=== PATIENT | male | born 1950 ===

== ENCOUNTER 2021-11-03 16:26 | Inpatient (IN) | payer MEDICARE, OTHER, SELFPAY ==
--- NOTE | ~2021-11-03 | CT_ITS ---
EXAMINATION: CT HEAD WITHOUT CONTRAST CLINICAL INFORMATION: Change in mental status COMPARISON: None TECHNIQUE: Contiguous axial imaging was performed from the skull base to vertex without intravenous administration of contrast. This CT examination was performed using dose optimization techniques as appropriate, variously including the following: *Automated exposure control *Adjustment of mA and/or kV according to patient size (this includes techniques or standardized protocols for targeted exams where dose is matched to indication/reason for exam; i.e. extremities or head) *Use of iterative reconstruction technique DLP: 889 mGy-cm FINDINGS: There is no evidence of acute intracranial hemorrhage or territorial infarction. No abnormal mass effect or midline shift is seen. Riddle to white matter differentiation is well preserved. No extra-axial fluid collections are identified. The ventricles are normal in size. There is no abnormal attenuation within the brain parenchyma. The osseous structures and soft tissues are normal. The mastoid air cells and visualized portions of the paranasal sinuses are well aerated. CT/CT head/brain wo con IMPRESSION: Unremarkable exam.
[2021-11-03 17:01] VITALS: BP 149/77; PULSE 75; RESP 16; TEMP 36.6; O2SAT 97
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
[2021-11-03 18:00] VITALS: BP 137/67; PULSE 76; RESP 137; RESP 16; TEMP 36.5; O2SAT 98
--- NOTE | 2021-11-03 18:18 | PC.ADMIT ---
[place] [facility] [facility] where he was brought due to reports of erratic behavior. The patient reported increased anxiety/panic attacks. He was also exhibiting unusual behavior in the community including plans to order large amounts of food from a restaurant for a republican and spending excessive amounts of money. Patient resides at home with his and other family members. Patient arrived on unit at 1636 via stretcher. He was observed to be neatly dressed in street clothes and neatly groomed. TW met the patient outside the unit with CV. Patient initally covered his ears with his hands when TW was attempting to assess mental status and refused to answer questions. When it was explained to him that he couldn't be admitted without answering he replied wth name, year and location. He then signed the CV. Upon admission to the unit vital signs were taken. T 97.9, BP 149/77, P 75 and O2 97%. Patient then declined to participate in the admission process stating, Answering questions will raise my anxiety . Patient declined dinner. He was observed conversing with other patients and interacting appropriately. When TW attempted to have him sign ADA's patient again declined to allow an explanation of documents and walked away. Patient apppears calm exhibiting no behavioral issues. Insight into situation is lacking and judgement appears impaired.
[2021-11-03] MEDS: polyethylene glycoL 3350 17 GM POWD.PACK PO (21:51)
--- NOTE | 2021-11-03 23:48 | PC.NURSE ---
pt has been visible in the milieu. however, initially when entering his room he is convinced that bed bugs have infested his bed. in fact there are a few pieces of straw on the sheet which has spurred the pts fear of bed bugs. there are c/o of constipation and a request for miralax. pt is guarded in his responses. he signed his release form for his dana to receive medical information. however, pt. declines to sign any further release forms at this time. dana given update and then spoke to . 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 another time pt stated that he worked at [employer] [[email or web address]] for 40 years. with the assistance of senior cyber security analyst, pt was asked to return to his room for the night. pt was cooperative and returned to his room for sleep. requests receive shower in the am.
[2021-11-04] MEDS: Ondansetron ODT 4 MG TAB.RAPDIS TRANSLINGU ×2 (08:04→20:24)
[2021-11-04 08:08] VITALS: BP 154/73; PULSE 73; RESP 19; TEMP 36.9; O2SAT 99
[2021-11-04 08:32] LABS: Estimated Average Glucose 108 mg/dL; Hemoglobin A1c % 5.4 %
[2021-11-04 08:37] LABS: Cholesterol 109 mg/dL; HDL Cholesterol 44 mg/dL; LDL Cholesterol Calculated 54 mg/dl; Triglycerides 57 mg/dL
[2021-11-04 09:01] LABS: Free T4 (Free Thyroxine) 1.41 ng/dL (0.71-1.85); Thyroid Stimulating Hormone 1.59 uIU/mL (0.32-4.0)
[2021-11-04 09:13] LABS: Folate 10.7 ng/mL (> or = 4.0); Vitamin B12 331 pg/mL (200-900)
--- NOTE | 2021-11-04 11:18 | HO.PM.IMCN ---
History of Present Illness Data of Consult Service Date: 11/04/21 Primary Care Provider: Edgar Randall MD HPI Reason for consult: routine medical H&P This is a 71 yo M who reports that he has no medical diagnosis is admitted to [facility]. Medical consult requested for routine medical H&P. Pt reports being on medications for conditions other than psychiatric but does not know what for. He does specifically deny a history of HTN, DM, CAD, CVA. He reports no physical complaints at this time. PMH Unclear -- patient on statin/bb/arb but dnies history of HTN, CAD, CHF Prostate Ca PSH Bilateral hernia repairs Prostatectomy 8 years ago Eye surgery as a child FH Lung Ca in father; Prostate Ca in brother SH Denies tobacco or illicit substance abuse not forth coming with alcohol use, but denies daily drinking Review of Systems [facility]: [facility] Household Members: Spouse Housing: Unknown / Unable to assess Do you presently have visiting nurse or other home services: No Unable to assess alcohol history related to: Refusing to respond Patient Tobacco Use Status: Never used Tobacco Smoked in Last 30 Days: No e-Cigarette/Vaping Use: Never Used Patient Interested in Nicotine Replacement: No Patient Given Instructions on How to Stop Smoking: No Second Hand Smoke Exposure: No Use of substances other than those prescribed or required for medical reasons: Refusing to respond Currently Displaying Signs/Symptoms of Drug Intoxication Withdrawal: No Advance Directives: No Advance Directives Information Provided: No Do you have thoughts of harming others: None Do you have a plan to hurt others: No Plan Recently lost weight without trying: No How much weight loss: Not applicable Eating poorly because of decreased appetite: No Nutrition screen score: 0 Poor oral hygiene: No Meds Allergies Allergy/AdvReac Type Severity Reaction Status Date / Time No Known Allergies Allergy Verified 11/03/21 16:21 Active Medications: Current Medications Acetaminophen (Acetaminophen 325 Mg Tablet) 650 mg PO Q6H PRN PRN Reason: Headache/Pain Mild Scale (1-3) Al Hydroxide/Mg Hydroxide (Magnesium Hydrox/Alum Hydrox 30 Ml Oral.Susp) 30 ml PO Q6H PRN PRN Reason: Heartburn/Nausea Aspirin (Aspirin Enteric Coated 81 Mg Tablet.Dr) 81 mg PO DAILY SUSAN Last Admin: 11/04/21 09:18 Dose: Not Given Atorvastatin Calcium (Atorvastatin Calcium 40 Mg Tablet) 40 mg PO BEDTIME SUSAN Carvedilol (Carvedilol 6.25 Mg Tablet) 6.25 mg PO BID [facility]; Protocol Last Admin: 11/04/21 09:18 Dose: Not Given Haloperidol (Haloperidol 5 Mg Tablet) 5 mg PO BID PRN PRN Reason: agitation, psychosis Hydrochlorothiazide (Hydrochlorothiazide 25 Mg Tablet) 25 mg PO DAILY SUSAN Last Admin: 11/04/21 09:19 Dose: Not Given Hydroxyzine HCl (Hydroxyzine Hcl 25 Mg Tablet) 25 mg PO BEDTIME PRN PRN Reason: Anxiety Lorazepam (Lorazepam 1 Mg Tablet) 1 mg PO BID PRN PRN Reason: agitation, anxiety Losartan Potassium (Losartan Potassium 50 Mg Tablet) 100 mg PO DAILY [facility]; Protocol Last Admin: 11/04/21 09:19 Dose: Not Given Magnesium Hydroxide (Milk Of Magnesia 30 Ml Oral.Susp) 30 ml PO DAILY PRN PRN Reason: Constipation Ondansetron HCl (Ondansetron Odt 4 Mg Tab.Rapdis) 4 mg TRANSLINGU Q8H PRN PRN Reason: nausea Last Admin: 11/04/21 08:04 Dose: 4 mg Polyethylene Glycol (Polyethylene Glycol 3350 17 Gm Powd.Pack) 17 gm PO BEDTIME SUSAN Last Admin: 11/03/21 21:51 Dose: 17 gm Trazodone HCl (Trazodone Hcl 50 Mg Tablet) 50 mg PO BEDTIME PRN PRN Reason: Insomnia Home Medications Medication Instructions Recorded Confirmed Last Taken Type CZN-lkkckomddzzld-jzyixcv-caff 81 mg PO DAILY 11/03/21 11/03/21 Unknown History Lexapro 10 mg PO DAILY 11/03/21 11/03/21 Unknown History atorvastatin 40 mg PO DAILY 11/03/21 11/03/21 Unknown History carvedilol 6.25 mg PO DAILY 11/03/21 11/03/21 Unknown History hydrochlorothiazide 25 mg PO DAILY 11/03/21 11/03/21 Unknown History losartan 100 mg PO DAILY 11/03/21 11/03/21 Unknown History Physical Exam Vital Signs and Narrative: Vital Signs: Last Vital Signs Temp 98.5 F 11/04/21 08:08 Pulse 73 11/04/21 08:08 Resp 19 11/04/21 08:08 BP 154/73 H 06/29/22 08:08 Pulse Ox 99 11/04/21 08:08 O2 Del Method 11/04/21 08:08 Const: Other: General - no acute distress, appears comfortable Cardiovascular - regular rate and rhythm, S1-S2 Lungs - normal respiratory effort, clear to auscultation bilaterally, no wheezing Abdomen - soft, nontender, no rebound or guarding Extremities - no edema bilaterally Neuro - awake and alert, no focal deficits Results Labs Labs: Laboratory Results - last 24 hr 11/04/21 11/04/21 11/04/21 07:59 07:59 07:59 Estimat Average Glucose 108 Hemoglobin A1c % 5.4 Magnesium 2.0 Triglycerides 57 Cholesterol 109 LDL Cholesterol, Calc 54 HDL Cholesterol 44 Vitamin B12 331 Folate 10.7 TSH 1.59 Free T4 1.41 Assessment and Plan (1) Routine medical exam: Status: Acute Plan 71 yo M admitted to [facility]. He is a poor historian in regards to his chronic medical diagnosis. At this time, would continue his baseline meds and check routine labs if not done so already. Otherwise, appears to be medically stable. Will sign off. Please reconsult PRN,
[2021-11-04 11:49] VITALS: BMI 28.3
--- NOTE | 2021-11-04 12:55 | MHC.CLN ---
NUTRITION PATIENT REFUSING MEALS. REPORTED TO THIS WEIGHT YARDAGE CHECKER THAT IS NAUSEOUS AND WILL EAT WHEN HE WAKES UP (FROM [employer]). APPEARS WELL NOURISHED. NO ADDITIONAL NUTRITION INTERVENTIONS AT THIS TIME.
--- NOTE | 2021-11-04 15:43 | P.PNPSI_ITS ---
Subjective Subjective Date of Service: 11/04/21 Reason For Visit: Bipolar disorder, anxiety disorder Subjective Notes: Conditional Voluntary Interim History: the nursing staff reported that the patient was admitted last night and he complained that there were bed bugs and refuse to be in the room so it has to be changed. He sign a CV and release of information to his . On interview, the patient was on the patio without his shirt, explaining about paranoid believes stating that he has state police manager and he was Section 12, slightly disorganized and grandiose pe Mental Status Exam Mental Status Exam Patient Appearance: Inappropriate Patient Orientation: Person and Situation Level of Consciousness: Awake Patient Behavior: Guarded and Cooperative Mood Description: Withdrawn Affect Description: Labile Ability to Follow Directions: Fair Speech Pattern: Clear Hallucinations: Auditory Delusions: Paranoid Ideation and Grandiose Thought Process: Illogical Thought Content: positive for Circumstantial Judgement: Fair Diagnostics Vital Signs (24Hr): Vital Signs - 24 hr 11/03/21 17:01 11/03/21 18:00 11/03/21 18:00 Temperature 97.9 F 97.7 F 97.7 F Pulse Rate 75 76 76 Respiratory Rate 16 16 137 H Blood Pressure 149/77 H 137/67 Pulse Oximetry 97 98 98 Oxygen Delivery Method Room Air Room Air Room Air 11/04/21 08:08 Temperature 98.5 F Pulse Rate 73 Respiratory Rate 19 Blood Pressure 154/73 H Pulse Oximetry 99 Oxygen Delivery Method Room Air BMI result Body Mass Index 28.3 Labs Labs: Laboratory Results - last 48 hr 11/04/21 11/04/21 11/04/21 07:59 07:59 07:59 Estimat Average Glucose 108 Hemoglobin A1c % 5.4 Magnesium 2.0 Triglycerides 57 Cholesterol 109 LDL Cholesterol, Calc 54 HDL Cholesterol 44 Vitamin B12 331 Folate 10.7 TSH 1.59 Free T4 1.41 Medications Medications Current Medications Acetaminophen (Acetaminophen 325 Mg Tablet) 650 mg PO Q6H PRN PRN Reason: Headache/Pain Mild Scale (1-3) Al Hydroxide/Mg Hydroxide (Magnesium Hydrox/Alum Hydrox 30 Ml Oral.Susp) 30 ml PO Q6H PRN PRN Reason: Heartburn/Nausea Aspirin (Aspirin Enteric Coated 81 Mg Tablet.) 81 mg PO DAILY [facility] Last Admin: 11/04/21 09:18 Dose: Not Given Atorvastatin Calcium (Atorvastatin Calcium 40 Mg Tablet) 40 mg PO BEDTIME SUSAN Carvedilol (Carvedilol 6.25 Mg Tablet) 6.25 mg PO BID SUSAN; Protocol Last Admin: 11/04/21 09:18 Dose: Not Given Haloperidol (Haloperidol 5 Mg Tablet) 5 mg PO BID PRN PRN Reason: agitation, psychosis Hydrochlorothiazide (Hydrochlorothiazide 25 Mg Tablet) 25 mg PO DAILY SUSAN Last Admin: 11/04/21 09:19 Dose: Not Given Hydroxyzine HCl (Hydroxyzine Hcl 25 Mg Tablet) 25 mg PO BEDTIME PRN PRN Reason: Anxiety Lorazepam (Lorazepam 1 Mg Tablet) 1 mg PO BID PRN PRN Reason: agitation, anxiety Losartan Potassium (Losartan Potassium 50 Mg Tablet) 100 mg PO DAILY SUSAN; Protocol Last Admin: 11/04/21 09:19 Dose: Not Given Magnesium Hydroxide (Milk Of Magnesia 30 Ml Oral.Susp) 30 ml PO DAILY PRN PRN Reason: Constipation Ondansetron HCl (Ondansetron Odt 4 Mg Tab.Rapdis) 4 mg TRANSLINGU Q8H PRN PRN Reason: nausea Last Admin: 11/04/21 08:04 Dose: 4 mg Polyethylene Glycol (Polyethylene Glycol 3350 17 Gm Powd.Pack) 17 gm PO BEDTIME SUSAN Last Admin: 11/03/21 21:51 Dose: 17 gm Trazodone HCl (Trazodone Hcl 50 Mg Tablet) 50 mg PO BEDTIME PRN PRN Reason: Insomnia Allergies Allergies Allergy/AdvReac Type Severity Reaction Status Date / Time No Known Allergies Allergy Verified 11/03/21 16:21 Assessment & Plan Assessment & Plan (1) Routine medical exam: Status: Acute Code(s): Z00.00 - Encounter for general adult medical examination without abnormal findings Plan 71 yo M admitted to [facility]. He is a poor historian in regards to his chronic medical diagnosis. At this time, would continue his baseline meds and check routine labs if not done so already. Otherwise, appears to be medically stable. Will sign off. Please reconsult PRN, Plan 1. Start Zyprexa 5 mg p.o. q.h.s. to target psychosis and mood lability. 2. Gather collateral information. 3. Keep other medications as prescribed. I spent _20 minutes with the patient and/or on the patient floor today, greater than?50% of which was spent counseling/coordinating care. Reason for contiued inpatient stay Substantial Risk for: inability to function, rapid decompensation and med/psych decompensation
[2021-11-04 18:00] VITALS: BP 172/79; PULSE 73; RESP 12; TEMP 36.5; O2SAT 98
[2021-11-04] MEDS: polyethylene glycoL 3350 17 GM POWD.PACK PO (20:21)
[2021-11-04] MEDS: carvediloL 6.25 MG TABLET PO (20:23)
[2021-11-04] MEDS: OLANZapine 5 MG TABLET PO (20:25)
[2021-11-04] MEDS: LORazepam 1 MG TABLET PO (20:25)
[2021-11-05 06:00] VITALS: BP 173/78; PULSE 73; TEMP 36.1; O2SAT 98
[2021-11-05 07:00] VITALS: BMI 26.1
[2021-11-05] MEDS: LORazepam 1 MG TABLET PO (07:56)
[2021-11-05] MEDS: HaloperidoL 5 MG TABLET PO (07:56)
--- NOTE | 2021-11-05 13:52 | P.PNPSI_ITS ---
Subjective Subjective Date of Service: 11/05/21 Reason For Visit: Bipolar disorder, anxiety disorder Subjective Notes: Conditional Voluntary Interim History: The nursing staff reported taht the patient has been agitated, he has not slept at night, only 2 or 3 hours, he decided to sleep in the floor in front of the nursing station. He was threatening and security was called, he needed PRN Haldol and Ativan. The clinical social worker contacted his and apparentlyl the patient does not have any psychiatric history, grossly psychotic and delusional , non sensical for several weeks. On interview, he denied any symptoms, he looked slightly oversedated. Mental Status Exam Mental Status Exam Patient Appearance: Well Grooomed Patient Orientation: Person Level of Consciousness: Awake Patient Behavior: Appropriate Mood Description: Withdrawn Affect Description: Constricted Ability to Follow Directions: Good Speech Pattern: Clear Memory Description: Intact Hallucinations: None Thought Process: Racing Thought Content: positive for Flight of Ideas and positive for Poverty of Content Judgement: Fair Diagnostics Vital Signs (24Hr): Vital Signs - 24 hr 11/04/21 18:00 11/05/21 06:00 Temperature 97.7 F 97.0 F Pulse Rate 73 73 Respiratory Rate 12 Blood Pressure 172/79 H 173/78 H Pulse Oximetry 98 98 Oxygen Delivery Method Room Air Room Air BMI result Body Mass Index 28.3 Labs Labs: Laboratory Results - last 48 hr 11/04/21 11/04/21 11/04/21 07:59 07:59 07:59 Estimat Average Glucose 108 Hemoglobin A1c % 5.4 Magnesium 2.0 Triglycerides 57 Cholesterol 109 LDL Cholesterol, Calc 54 HDL Cholesterol 44 Vitamin B12 331 Folate 10.7 TSH 1.59 Free T4 1.41 Medications Medications Current Medications Acetaminophen (Acetaminophen 325 Mg Tablet) 650 mg PO Q6H PRN PRN Reason: Headache/Pain Mild Scale (1-3) Al Hydroxide/Mg Hydroxide (Magnesium Hydrox/Alum Hydrox 30 Ml Oral.Susp) 30 ml PO Q6H PRN PRN Reason: Heartburn/Nausea Aspirin (Aspirin Enteric Coated 81 Mg Tablet.Dr) 81 mg PO DAILY [facility] Last Admin: 11/05/21 08:49 Dose: Not Given Atorvastatin Calcium (Atorvastatin Calcium 40 Mg Tablet) 40 mg PO BEDTIME [facility] Last Admin: 11/04/21 20:25 Dose: Not Given Carvedilol (Carvedilol 6.25 Mg Tablet) 6.25 mg PO BID [facility]; Protocol Last Admin: 11/05/21 08:49 Dose: Not Given Haloperidol (Haloperidol 5 Mg Tablet) 5 mg PO BID PRN PRN Reason: agitation, psychosis Last Admin: 11/05/21 07:56 Dose: 5 mg Hydrochlorothiazide (Hydrochlorothiazide 25 Mg Tablet) 25 mg PO DAILY [facility] Last Admin: 11/05/21 08:49 Dose: Not Given Hydroxyzine HCl (Hydroxyzine Hcl 25 Mg Tablet) 25 mg PO BEDTIME PRN PRN Reason: Anxiety Lorazepam (Lorazepam 1 Mg Tablet) 1 mg PO BID PRN PRN Reason: agitation, anxiety Last Admin: 11/05/21 07:56 Dose: 1 mg Losartan Potassium (Losartan Potassium 50 Mg Tablet) 100 mg PO DAILY [facility]; Protocol Last Admin: 11/05/21 08:49 Dose: Not Given Magnesium Hydroxide (Milk Of Magnesia 30 Ml Oral.Susp) 30 ml PO DAILY PRN PRN Reason: Constipation Olanzapine (Olanzapine 5 Mg Tablet) 5 mg PO BEDTIME [facility] Last Admin: 11/04/21 20:25 Dose: 5 mg Ondansetron HCl (Ondansetron Odt 4 Mg Tab.Rapdis) 4 mg TRANSLINGU Q8H PRN PRN Reason: nausea Last Admin: 11/04/21 20:24 Dose: 4 mg Polyethylene Glycol (Polyethylene Glycol 3350 17 Gm Powd.Pack) 17 gm PO BEDTIME [facility] Last Admin: 11/04/21 20:21 Dose: 17 gm Trazodone HCl (Trazodone Hcl 50 Mg Tablet) 50 mg PO BEDTIME PRN PRN Reason: Insomnia Allergies Allergies Allergy/AdvReac Type Severity Reaction Status Date / Time No Known Allergies Allergy Verified 11/03/21 16:21 Assessment & Plan Assessment & Plan (1) Routine medical exam: Status: Acute Code(s): Z00.00 - Encounter for general adult medical examination without abnormal findings Plan 71 yo M admitted to [facility]. He is a poor historian in regards to his chronic medical diagnosis. At this time, would continue his baseline meds and check routine labs if not done so already. Otherwise, appears to be medically stable. Will sign off. Please reconsult PRN, Plan 1. Increase up to 10 mg p.o. q.h.s. to target psychosis and mood lability. 2. Gather collateral information. 3. Keep other medications as prescribed. I spent ___20___ minutes with the patient and/or on the patient floor today, greater than?50% of which was spent counseling/coordinating care. Reason for contiued inpatient stay Substantial Risk for: harm to others, rapid decompensation and med/psych decompensation
[2021-11-05 18:00] VITALS: BP 134/65; PULSE 65; RESP 17; TEMP 36.8; O2SAT 97
[2021-11-05] MEDS: carvediloL 6.25 MG TABLET PO (20:00)
[2021-11-05] MEDS: polyethylene glycoL 3350 17 GM POWD.PACK PO (20:00)
[2021-11-05] MEDS: Atorvastatin Calcium 40 MG TABLET PO (20:00)
[2021-11-05] MEDS: OLANZapine 10 MG TABLET PO (20:00)
[2021-11-06 06:00] VITALS: BP 163/77; PULSE 68; RESP 19; TEMP 36.4; O2SAT 99
[2021-11-06] MEDS: carvediloL 6.25 MG TABLET PO ×2 (10:11→20:13)
[2021-11-06] MEDS: Losartan Potassium 50 MG TABLET 100 MG PO (10:11)
[2021-11-06] MEDS: Aspirin Enteric Coated 81 MG TABLET.DR PO (10:12)
[2021-11-06] MEDS: hydroCHLOROthiazide 25 MG TABLET PO (10:12)
--- NOTE | 2021-11-06 11:59 | HO.PSYCHPN ---
Subjective Subjective Date of Service: 11/06/21 Reason For Visit: Bipolar disorder, anxiety disorder Subjective Notes: Conditional Voluntary Interim History: The nursing staff reported that yesterday the patient to the PRNs was pleasant and cooperative, he aided in her and he slept 7 hours after receiving Zyprexa 10 mg p.o. q.h.s.. The socially responsible investment adviser contact his and apparently he has never been violent or aggressive. Later on, the staff reported that he he called his and he started yelling over the phone. On interview the patient denies symptoms he states that he is doing fine. His main complaint was a lession on her foot. Today the socially responsible investment adviser contact is and she reported that the patient stated that he is saying the things that the psychiatrist wants to hear . Mental Status Exam Mental Status Exam Patient Appearance: Well Grooomed Patient Orientation: Person and Situation Level of Consciousness: Awake Patient Behavior: Cooperative Mood Description: Withdrawn Affect Description: Constricted Ability to Follow Directions: Good Speech Pattern: Clear Hallucinations: Auditory Delusions: Paranoid Ideation and Grandiose Thought Process: Distracted Thought Content: positive for Racing Judgement: Fair Diagnostics Vital Signs (24Hr): Vital Signs - 24 hr 11/05/21 18:00 11/06/21 06:00 Temperature 98.3 F 97.5 F Pulse Rate 65 68 Respiratory Rate 17 19 Blood Pressure 134/65 163/77 H Pulse Oximetry 97 99 Oxygen Delivery Method Room Air Room Air BMI result Body Mass Index 26.1 Medications Medications Current Medications Acetaminophen (Acetaminophen 325 Mg Tablet) 650 mg PO Q6H PRN PRN Reason: Headache/Pain Mild Scale (1-3) Al Hydroxide/Mg Hydroxide (Magnesium Hydrox/Alum Hydrox 30 Ml Oral.Susp) 30 ml PO Q6H PRN PRN Reason: Heartburn/Nausea Aspirin (Aspirin Enteric Coated 81 Mg Tablet.) 81 mg PO DAILY [facility] Last Admin: 11/06/21 10:12 Dose: 81 mg Atorvastatin Calcium (Atorvastatin Calcium 40 Mg Tablet) 40 mg PO BEDTIME [facility] Last Admin: 11/05/21 20:00 Dose: 40 mg Carvedilol (Carvedilol 6.25 Mg Tablet) 6.25 mg PO BID [facility]; Protocol Last Admin: 11/06/21 10:11 Dose: 6.25 mg Haloperidol (Haloperidol 5 Mg Tablet) 5 mg PO BID PRN PRN Reason: agitation, psychosis Last Admin: 11/05/21 07:56 Dose: 5 mg Hydrochlorothiazide (Hydrochlorothiazide 25 Mg Tablet) 25 mg PO DAILY [facility] Last Admin: 11/06/21 10:12 Dose: 25 mg Hydroxyzine HCl (Hydroxyzine Hcl 25 Mg Tablet) 25 mg PO BEDTIME PRN PRN Reason: Anxiety Lorazepam (Lorazepam 1 Mg Tablet) 1 mg PO BID PRN PRN Reason: agitation, anxiety Last Admin: 11/05/21 07:56 Dose: 1 mg Losartan Potassium (Losartan Potassium 50 Mg Tablet) 100 mg PO DAILY [facility]; Protocol Last Admin: 11/06/21 10:11 Dose: 100 mg Magnesium Hydroxide (Milk Of Magnesia 30 Ml Oral.Susp) 30 ml PO DAILY PRN PRN Reason: Constipation Olanzapine (Olanzapine 10 Mg Tablet) 10 mg PO BEDTIME [facility] Last Admin: 11/05/21 20:00 Dose: 10 mg Ondansetron HCl (Ondansetron Odt 4 Mg Tab.Rapdis) 4 mg TRANSLINGU Q8H PRN PRN Reason: nausea Last Admin: 11/04/21 20:24 Dose: 4 mg Polyethylene Glycol (Polyethylene Glycol 3350 17 Gm Powd.Pack) 17 gm PO BEDTIME [facility] Last Admin: 11/05/21 20:00 Dose: 17 gm Trazodone HCl (Trazodone Hcl 50 Mg Tablet) 50 mg PO BEDTIME PRN PRN Reason: Insomnia Allergies Allergies Allergy/AdvReac Type Severity Reaction Status Date / Time No Known Allergies Allergy Verified 11/03/21 16:21 Assessment & Plan Assessment & Plan (1) Routine medical exam: Status: Acute Code(s): Z00.00 - Encounter for general adult medical examination without abnormal findings Plan 71 yo M admitted to [facility]. He is a poor historian in regards to his chronic medical diagnosis. At this time, would continue his baseline meds and check routine labs if not done so already. Otherwise, appears to be medically stable. Will sign off. Please reconsult PRN, Plan 1. Increase up to 10 mg p.o. q.h.s. to target psychosis and mood lability. 2. Gather collateral information. 3. Keep other medications as prescribed. 4. Podiatrician consult I spent ___20___ minutes with the patient and/or on the patient floor today, greater than?50% of which was spent counseling/coordinating care. Reason for contiued inpatient stay Substantial Risk for: inability to function, rapid decompensation and med/psych decompensation
[2021-11-06 18:00] VITALS: BP 134/65; PULSE 72; RESP 18; TEMP 36.6; O2SAT 98
[2021-11-06] MEDS: Atorvastatin Calcium 40 MG TABLET PO (20:13)
[2021-11-06] MEDS: OLANZapine 10 MG TABLET PO (20:13)
[2021-11-06] MEDS: polyethylene glycoL 3350 17 GM POWD.PACK PO (20:13)
[2021-11-07 07:30] VITALS: BP 137/71; PULSE 79; RESP 16; TEMP 36.4; O2SAT 98
[2021-11-07] MEDS: Losartan Potassium 50 MG TABLET 100 MG PO (09:03)
[2021-11-07] MEDS: carvediloL 6.25 MG TABLET PO ×2 (09:03→20:13)
[2021-11-07] MEDS: Aspirin Enteric Coated 81 MG TABLET.DR PO (09:03)
[2021-11-07] MEDS: hydroCHLOROthiazide 25 MG TABLET PO (09:03)
[2021-11-07] MEDS: Milk of Magnesia 30 ML ORAL.SUSP PO (09:07)
[2021-11-07 15:44] LABS: Anion Gap 9 (12-20); Blood Urea Nitrogen 16 mg/dL (9-16); Calcium 10.2 mg/dL (8.4-10.2); Carbon Dioxide 28 mmol/L (22-29); Chloride 95 mmol/L (96-108); Creatinine Clr Calc Pharmacy 65.2; Estimated Glomerular Filt Rate > 60; Glucose Random 142 mg/dL (60-115); Potassium 4.4 mmol/L (3.3-5.1); Sodium 128 mmol/L (135-145)
[2021-11-07 18:00] VITALS: BP 132/69; PULSE 74; RESP 18; TEMP 36.1; O2SAT 99
--- NOTE | 2021-11-07 18:13 | PC.NURSE ---
This morning at about 13:00, patient asked to be given IV fluids due to feeling dehydrated. Patient states I feel very dehydrated and want IV fluids. Patient was encouraged to increase po fluid intake and patient got angry and proceeded to continuously press the red button prompting an alarm on the unit. Patient was redirected on multiple occasions but he refused. Patient later asked to use the wall phone. While doing so, he dialed 911 and asked this RN to speak to the police. this RN spoke to an officer at the [facility] informing the officer that there wasn't a need for any emergency intervention from them at that time. At dinner time, pt was seated at the table with another patient and was observed requesting to eat the other patient's dinner. This RN intervened, ordered a new meal for him. However, he still grabbed unto the ensure of the other patient refusing to let go. Security was called and issue resolved. Patient later asked to speak to , he asked for a friend's number which was dialed for him. patient was over heard telling his friend I will need a drywall hanger helper to blanca this place. They had me with my hands up, pinned against the wall and my head was slammed on the wall. I am in an asylum.
[2021-11-07] MEDS: polyethylene glycoL 3350 17 GM POWD.PACK PO (20:13)
[2021-11-07] MEDS: Atorvastatin Calcium 40 MG TABLET PO (20:13)
[2021-11-07] MEDS: OLANZapine 10 MG TABLET PO (20:13)
--- NOTE | 2021-11-07 23:46 | P.PNPSI_ITS ---
Subjective Subjective Date of Service: 11/07/21 Reason For Visit: Bipolar disorder, anxiety disorder Subjective Notes: Rojo Warning and Conditional Voluntary Healthcare Proxy: No Guardianship: No Medical Problems Affecting Mental Status: No Interim History: Patient seen and discussed with team. Pt reportedly trying to call his multiple times and called the police stating he is dehydrated. Per staff, he has been drinking fluids. Pt found in outside patio, buttoned shirt open, nails pa inted. Patient evaluated today and upon interview pt reports his mood is great. 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 Says his anxiety is a zero right now. Reports his triggers for anxiety are when he hears people talk. Says my granddaughter has it its called extreme anxiety. Denies SI/SIB. Says he feels safe.? In the milieu, patient is safe but intrusive in behavior. Medication Compliance: Yes Side effects from medications: No Attending Groups: Intermittent Review of Systems Acute medical concerns: No Medical Review of Systems: unchanged Mental Status Exam Mental Status Exam Narrative: Patient Appearance: Well Grooomed Patient Orientation: Person and Situation Level of Consciousness: Awake Patient Behavior: Cooperative Mood Description: Withdrawn Affect Description: Constricted Ability to Follow Directions: Good Speech Pattern: Clear Hallucinations: Auditory Delusions: Paranoid Ideation and Grandiose Thought Process: Distracted Thought Content: positive for Racing Judgement: Fair Diagnostics Vital Signs (24Hr): Vital Signs - 24 hr 11/07/21 18:00 11/08/21 09:00 Temperature 97 F 97.7 F Pulse Rate 74 75 Respiratory Rate 18 18 Blood Pressure 132/69 143/74 H Pulse Oximetry 99 9 L Oxygen Delivery Method Room Air Room Air BMI result Body Mass Index 26.1 Labs Results: 11/07/21 15:13 Labs: Laboratory Results - last 48 hr 11/07/21 15:13 Sodium 128 L Potassium 4.4 Chloride 95 L Carbon Dioxide 28 Anion Gap 9 L BUN 16 Creatinine 1.14 Estim Creat Clear Calc 65.2 Estimated GFR > 60 Random Glucose 142 H Calcium 10.2 Medications Medications Current Medications Acetaminophen (Acetaminophen 325 Mg Tablet) 650 mg PO Q6H PRN PRN Reason: Headache/Pain Mild Scale (1-3) Al Hydroxide/Mg Hydroxide (Magnesium Hydrox/Alum Hydrox 30 Ml Oral.Susp) 30 ml PO Q6H PRN PRN Reason: Heartburn/Nausea Aspirin (Aspirin Enteric Coated 81 Mg Tablet.Dr) 81 mg PO DAILY [facility] Last Admin: 11/08/21 09:23 Dose: 81 mg Atorvastatin Calcium (Atorvastatin Calcium 40 Mg Tablet) 40 mg PO BEDTIME [facility] Last Admin: 11/07/21 20:13 Dose: 40 mg Carvedilol (Carvedilol 6.25 Mg Tablet) 6.25 mg PO BID [facility]; Protocol Last Admin: 11/08/21 09:23 Dose: 6.25 mg Haloperidol (Haloperidol 5 Mg Tablet) 5 mg PO BID PRN PRN Reason: agitation, psychosis Last Admin: 11/05/21 07:56 Dose: 5 mg Hydrochlorothiazide (Hydrochlorothiazide 25 Mg Tablet) 25 mg PO DAILY [facility] Last Admin: 11/08/21 09:23 Dose: 25 mg Hydroxyzine HCl (Hydroxyzine Hcl 25 Mg Tablet) 25 mg PO BEDTIME PRN PRN Reason: Anxiety Lorazepam (Lorazepam 1 Mg Tablet) 1 mg PO BID PRN PRN Reason: agitation, anxiety Last Admin: 11/05/21 07:56 Dose: 1 mg Losartan Potassium (Losartan Potassium 50 Mg Tablet) 100 mg PO DAILY [facility]; Protocol Last Admin: 11/08/21 09:23 Dose: 100 mg Magnesium Hydroxide (Milk Of Magnesia 30 Ml Oral.Susp) 30 ml PO DAILY PRN PRN Reason: Constipation Last Admin: 11/07/21 09:07 Dose: 30 ml Olanzapine (Olanzapine 10 Mg Tablet) 10 mg PO BEDTIME [facility] Last Admin: 11/07/21 20:13 Dose: 10 mg Ondansetron HCl (Ondansetron Odt 4 Mg Tab.Rapdis) 4 mg TRANSLINGU Q8H PRN PRN Reason: nausea Last Admin: 11/04/21 20:24 Dose: 4 mg Polyethylene Glycol (Polyethylene Glycol 3350 17 Gm Powd.Pack) 17 gm PO BEDTIME [facility] Last Admin: 11/07/21 20:13 Dose: 17 gm Trazodone HCl (Trazodone Hcl 50 Mg Tablet) 50 mg PO BEDTIME PRN PRN Reason: Insomnia Allergies Allergies Allergy/AdvReac Type Severity Reaction Status Date / Time No Known Allergies Allergy Verified 11/03/21 16:21 Assessment & Plan Assessment & Plan (1) Routine medical exam: Status: Acute Code(s): Z00.00 - Encounter for general adult medical examination without abnormal findings Plan 71 yo M admitted to [facility]. He is a poor historian in regards to his chronic medical diagnosis. At this time, would continue his baseline meds and check routine labs if not done so already. Otherwise, appears to be medically stable. Will sign off. Please reconsult PRN, Plan 1. Increase up to 10 mg p.o. q.h.s. to target psychosis and mood lability. 2. Gather collateral information. 3. Keep other medications as prescribed. 4. Podiatrician consult 11/07: No changes to medication, order BMP due to pt reporting dehydration I spent minutes with the patient and/or on the patient floor today, greater than?50% of which was spent counseling/coordinating care. Patient educated on: medication risk/benefits and therapeutic strategies Reason for contiued inpatient stay Substantial Risk for: inability to function, rapid decompensation and med/psych decompensation
[2021-11-08 09:00] VITALS: BP 143/74; PULSE 75; RESP 18; TEMP 36.5; O2SAT 9
[2021-11-08] MEDS: Losartan Potassium 50 MG TABLET 100 MG PO (09:23)
[2021-11-08] MEDS: hydroCHLOROthiazide 25 MG TABLET PO (09:23)
[2021-11-08] MEDS: Aspirin Enteric Coated 81 MG TABLET.DR PO (09:23)
[2021-11-08] MEDS: carvediloL 6.25 MG TABLET PO ×2 (09:23→21:41)
--- NOTE | 2021-11-08 11:46 | P.PNPSI_ITS ---
Subjective Subjective Date of Service: 11/08/21 Reason For Visit: Bipolar disorder, anxiety disorder Subjective Notes: Rojo Warning Healthcare Proxy: No Guardianship: No Medical Problems Affecting Mental Status: No Interim History: Patient seen and discussed with team. Patient evaluated today and upon interview pt is found with his . I spoke with pt's who reports he is not in touch with reality, onset 6 weeks ago. She reports he had a similar episode after his sister in 10/2017 but that episode was not as bad and lasted like a month or so, pt bought a new truck, thought he had money to put into a swimming pool. She believes pt had an MRI done at [facility] upon recent admission and that nothing showed up. Will request paperwork. Says prior to this admission pt was only sleeping 2-3 hours and then he?d be up, he just needs to talk to be constantly, was on the go all the time. unable to identify precipitating factors. Says he does have a remote hx of head injury, bleeding on the brain, was seen at [facility] but then he recovered from that, this was fifteen years ago.? I spoke with the pt this afternoon and upon interview he says he is doing okay. Says his sleep was great, he is energetic. Denies VH, denies AH. Says right now anxiety is a zero. Denies SI/ SIB. Denies physical health complaints. In the milieu, patient is intrusive in behavior, telling other patients that they have demons inside them. Medication Compliance: Yes Side effects from medications: No Attending Groups: Intermittent Review of Systems Acute medical concerns: No Medical Review of Systems: unchanged Mental Status Exam Mental Status Exam Narrative: Patient Appearance: Well Grooomed Patient Orientation: Person and Situation Level of Consciousness: Awake Patient Behavior: Cooperative Mood Description: Withdrawn Affect Description: Constricted Ability to Follow Directions: Good Speech Pattern: Clear Hallucinations: Auditory Delusions: Paranoid Ideation and Grandiose Thought Process: Distracted Thought Content: positive for Racing Judgement: Fair Diagnostics Vital Signs (24Hr): Vital Signs - 24 hr 11/07/21 18:00 11/08/21 09:00 Temperature 97 F 97.7 F Pulse Rate 74 75 Respiratory Rate 18 18 Blood Pressure 132/69 143/74 H Pulse Oximetry 99 9 L Oxygen Delivery Method Room Air Room Air BMI result Body Mass Index 26.1 Labs Results: 11/07/21 15:13 Labs: Laboratory Results - last 48 hr 11/07/21 15:13 Sodium 128 L Potassium 4.4 Chloride 95 L Carbon Dioxide 28 Anion Gap 9 L BUN 16 Creatinine 1.14 Estim Creat Clear Calc 65.2 Estimated GFR > 60 Random Glucose 142 H Calcium 10.2 Medications Medications Current Medications Acetaminophen (Acetaminophen 325 Mg Tablet) 650 mg PO Q6H PRN PRN Reason: Headache/Pain Mild Scale (1-3) Al Hydroxide/Mg Hydroxide (Magnesium Hydrox/Alum Hydrox 30 Ml Oral.Susp) 30 ml PO Q6H PRN PRN Reason: Heartburn/Nausea Aspirin (Aspirin Enteric Coated 81 Mg Tablet.Dr) 81 mg PO DAILY [facility] Last Admin: 11/08/21 09:23 Dose: 81 mg Atorvastatin Calcium (Atorvastatin Calcium 40 Mg Tablet) 40 mg PO BEDTIME [facility] Last Admin: 11/07/21 20:13 Dose: 40 mg Carvedilol (Carvedilol 6.25 Mg Tablet) 6.25 mg PO BID [facility]; Protocol Last Admin: 11/08/21 09:23 Dose: 6.25 mg Haloperidol (Haloperidol 5 Mg Tablet) 5 mg PO BID PRN PRN Reason: agitation, psychosis Last Admin: 11/05/21 07:56 Dose: 5 mg Hydrochlorothiazide (Hydrochlorothiazide 25 Mg Tablet) 25 mg PO DAILY [facility] Last Admin: 11/08/21 09:23 Dose: 25 mg Hydroxyzine HCl (Hydroxyzine Hcl 25 Mg Tablet) 25 mg PO BEDTIME PRN PRN Reason: Anxiety Lorazepam (Lorazepam 1 Mg Tablet) 1 mg PO BID PRN PRN Reason: agitation, anxiety Last Admin: 11/05/21 07:56 Dose: 1 mg Losartan Potassium (Losartan Potassium 50 Mg Tablet) 100 mg PO DAILY [facility]; Protocol Last Admin: 11/08/21 09:23 Dose: 100 mg Magnesium Hydroxide (Milk Of Magnesia 30 Ml Oral.Susp) 30 ml PO DAILY PRN PRN Reason: Constipation Last Admin: 11/07/21 09:07 Dose: 30 ml Olanzapine (Olanzapine 10 Mg Tablet) 10 mg PO BEDTIME [facility] Last Admin: 11/07/21 20:13 Dose: 10 mg Ondansetron HCl (Ondansetron Odt 4 Mg Tab.Rapdis) 4 mg TRANSLINGU Q8H PRN PRN Reason: nausea Last Admin: 11/04/21 20:24 Dose: 4 mg Polyethylene Glycol (Polyethylene Glycol 3350 17 Gm Powd.Pack) 17 gm PO BEDTIME [facility] Last Admin: 11/07/21 20:13 Dose: 17 gm Trazodone HCl (Trazodone Hcl 50 Mg Tablet) 50 mg PO BEDTIME PRN PRN Reason: Insomnia Allergies Allergies Allergy/AdvReac Type Severity Reaction Status Date / Time No Known Allergies Allergy Verified 11/03/21 16:21 Assessment & Plan Assessment & Plan (1) Routine medical exam: Status: Acute Code(s): Z00.00 - Encounter for general adult medical examination without abnormal fi ndings Plan 71 yo M admitted to [facility]. He is a poor historian in regards to his chronic medical diagnosis. At this time, would continue his baseline meds and check routine labs if not done so already. Otherwise, appears to be medically stable. Will sign off. Please reconsult PRN, Plan 1. Increase up to 10 mg p.o. q.h.s. to target psychosis and mood lability. 2. Gather collateral information. 3. Keep other medications as prescribed. 4. Podiatrician consult 11/07: No changes to medication, order BMP due to pt reporting dehydration 11/08: Increase zyprexa to 15 mg QHS for psychosis, mood lability I spent minutes with the patient and/or on the patient floor today, greater than?50% of which was spent counseling/coordinating care. Patient educated on: medication risk/benefits and therapeutic strategies Reason for contiued inpatient stay Substantial Risk for: inability to function, rapid decompensation and med/psych decompensation
[2021-11-08 18:00] VITALS: BP 124/60; PULSE 70; RESP 16; TEMP 36.4; O2SAT 99
[2021-11-08] MEDS: OLANZapine 7.5 MG TABLET 15 MG PO (21:40)
[2021-11-08] MEDS: Atorvastatin Calcium 40 MG TABLET PO (21:41)
[2021-11-08] MEDS: polyethylene glycoL 3350 17 GM POWD.PACK PO (21:41)
[2021-11-08] MEDS: LORazepam 1 MG TABLET PO (23:36)
--- NOTE | 2021-11-08 23:58 | P.PNPSI_ITS ---
Subjective Subjective Date of Service: 11/09/21 Reason For Visit: Bipolar disorder, anxiety disorder Subjective Notes: Rojo Warning Interim History: Patient seen and discussed with team. I reviewed with hospitalist FAYE, as baseline labs from [facility] showed chronic issue with hyponatremia, hospitalist does not recommend intervention other than encouraging hydration. Patient evaluated today and upon interview he reports he is doing great, sleeping great, slept 10 hours last night. Pt continues to complain of dehydration, encouraged hydration. Says I need to get out of here so i can be with my family. Denies dizziness. In the milieu, patient is bizarre, intrusive, difficult to redirect in behavior. Denies SI/SIB/HI upon inquiry. Says he feels safe. Medication Compliance: Yes Side effects from medications: No Attending Groups: Intermittent Review of Systems Acute medical concerns: No Medical Review of Systems: unchanged Mental Status Exam Mental Status Exam Narrative: Patient Appearance: Well Grooomed Patient Orientation: Person and Situation Level of Consciousness: Awake Patient Behavior: Cooperative Mood Description: Withdrawn Affect Description: Constricted Ability to Follow Directions: Good Speech Pattern: Clear Hallucinations: Auditory Delusions: Paranoid Ideation and Grandiose Thought Process: Distracted Thought Content: positive for Racing Judgement: Fair Diagnostics Vital Signs (24Hr): Vital Signs - 24 hr 11/08/21 18:00 Temperature 97.5 F Pulse Rate 70 Respiratory Rate 16 Blood Pressure 124/60 Pulse Oximetry 99 Oxygen Delivery Method Room Air Fraction of Inspired Oxygen 99 BMI result Body Mass Index 26.1 Labs Results: 11/09/21 10:07 Labs: Laboratory Results - last 48 hr 11/07/21 15:13 Sodium 128 L Potassium 4.4 Chloride 95 L Carbon Dioxide 28 Anion Gap 9 L BUN 16 Creatinine 1.14 Estim Creat Clear Calc 65.2 Estimated GFR > 60 Random Glucose 142 H Calcium 10.2 Medications Medications Current Medications Acetaminophen (Acetaminophen 325 Mg Tablet) 650 mg PO Q6H PRN PRN Reason: Headache/Pain Mild Scale (1-3) Al Hydroxide/Mg Hydroxide (Magnesium Hydrox/Alum Hydrox 30 Ml Oral.Susp) 30 ml PO Q6H PRN PRN Reason: Heartburn/Nausea Aspirin (Aspirin Enteric Coated 81 Mg Tablet.) 81 mg PO DAILY [facility] Last Admin: 11/09/21 08:45 Dose: 81 mg Atorvastatin Calcium (Atorvastatin Calcium 40 Mg Tablet) 40 mg PO BEDTIME [facility] Last Admin: 11/08/21 21:41 Dose: 40 mg Carvedilol (Carvedilol 6.25 Mg Tablet) 6.25 mg PO BID [facility]AN; Protocol Last Admin: 11/09/21 08:45 Dose: 6.25 mg Haloperidol (Haloperidol 5 Mg Tablet) 5 mg PO BID PRN PRN Reason: agitation, psychosis Last Admin: 11/05/21 07:56 Dose: 5 mg Hydrochlorothiazide (Hydrochlorothiazide 25 Mg Tablet) 25 mg PO DAILY [facility] Last Admin: 11/09/21 08:45 Dose: 25 mg Hydroxyzine HCl (Hydroxyzine Hcl 25 Mg Tablet) 25 mg PO BEDTIME PRN PRN Reason: Anxiety Lorazepam (Lorazepam 1 Mg Tablet) 1 mg PO BID PRN PRN Reason: agitation, anxiety Last Admin: 11/08/21 23:36 Dose: 1 mg Losartan Potassium (Losartan Potassium 50 Mg Tablet) 100 mg PO DAILY SUSAN; Daly col Last Admin: 11/09/21 08:45 Dose: 100 mg Magnesium Hydroxide (Milk Of Magnesia 30 Ml Oral.Susp) 30 ml PO DAILY PRN PRN Reason: Constipation Last Admin: 11/07/21 09:07 Dose: 30 ml Olanzapine (Olanzapine 7.5 Mg Tablet) 15 mg PO BEDTIME [facility] Last Admin: 11/08/21 21:40 Dose: 15 mg Ondansetron HCl (Ondansetron Odt 4 Mg Tab.Rapdis) 4 mg TRANSLINGU Q8H PRN PRN Reason: nausea Last Admin: 11/04/21 20:24 Dose: 4 mg Polyethylene Glycol (Polyethylene Glycol 3350 17 Gm Powd.Pack) 17 gm PO BEDTIME [facility]AN Last Admin: 11/08/21 21:41 Dose: 17 gm Trazodone HCl (Trazodone Hcl 50 Mg Tablet) 50 mg PO BEDTIME PRN PRN Reason: Insomnia Allergies Allergies Allergy/AdvReac Type Severity Reaction Status Date / Time No Known Allergies Allergy Verified 11/03/21 16:21 Assessment & Plan Assessment & Plan (1) Routine medical exam: Status: Acute Code(s): Z00.00 - Encounter for general adult medical examination without abnormal findings Plan 71 [facility] M [facility] He is a poor historian in regards to his chronic medical diagnosis. At this time, would continue his baseline meds and check routine labs if not done so already. Otherwise, appears to be medically stable. Will sign off. Please reconsult PRN, Plan 1. Increase up to 10 mg p.o. q.h.s. to target psychosis and mood lability. 2. Gather collateral information. 3. Keep other medications as prescribed. 4. Podiatrician consult 11/07: No changes to medication, order BMP due to pt reporting dehydration 11/08: Increase zyprexa to 15 mg QHS for psychosis, mood lability 11/09: No changes, reviewed BMP, hospitalist did not recommend IV hydration I spent minutes with the patient and/or on the patient floor today, greater than?50% of which was spent counseling/coordinating care. Patient educated on: medication risk/benefits Reason for contiued inpatient stay Substantial Risk for: inability to function, rapid decompensation and med/psych decompensation
[2021-11-09 06:00] VITALS: BP 154/68; PULSE 67; RESP 18; TEMP 36.6; O2SAT 100
[2021-11-09] MEDS: hydroCHLOROthiazide 25 MG TABLET PO (08:45)
[2021-11-09] MEDS: Losartan Potassium 50 MG TABLET 100 MG PO (08:45)
[2021-11-09] MEDS: Aspirin Enteric Coated 81 MG TABLET.DR PO (08:45)
[2021-11-09] MEDS: carvediloL 6.25 MG TABLET PO ×2 (08:45→20:28)
[2021-11-09 10:34] LABS: Anion Gap 10 (12-20); Blood Urea Nitrogen 16 mg/dL (9-16); Calcium 10.5 mg/dL (8.4-10.2); Carbon Dioxide 30 mmol/L (22-29); Chloride 98 mmol/L (96-108); Creatinine Clr Calc Pharmacy 75.1; Estimated Glomerular Filt Rate > 60; Glucose Random 110 mg/dL (60-115); Potassium 4.3 mmol/L (3.3-5.1); Sodium 134 mmol/L (135-145)
[2021-11-09 18:00] VITALS: BP 129/58; PULSE 88; RESP 16; TEMP 36.8
[2021-11-09] MEDS: polyethylene glycoL 3350 17 GM POWD.PACK PO (20:27)
[2021-11-09] MEDS: OLANZapine 7.5 MG TABLET 15 MG PO (20:28)
[2021-11-09] MEDS: Atorvastatin Calcium 40 MG TABLET PO (20:29)
[2021-11-09] MEDS: LORazepam 1 MG TABLET PO (20:29)
[2021-11-09] MEDS: HaloperidoL 5 MG TABLET PO (21:03)
--- NOTE | 2021-11-09 21:22 | PC.NURSE ---
1899 pt. was witnessed by (tacos Barth) talking with other patient penny vincent that the two of them should [facility]anca the hospital for bruises on their lower arms. 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 PT ALSO STATES THAT HE HAS HAD THIS SITUATION BEFORE WITH HIS LEFT EYE AND PROBABLY NEEDS SURGERY . PT IS ANXIOUS AND WANTS TO SPEAK TO [employer]. DESPITE BEING INSTRUCTED NOT TO DO SO, PT HAS PUSHED EMERGENCY RED BUTTON X2. SECURITY TEAM ARRIVED AND SPOKE WITH PT. 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 PT IS RECEPTIVE TO TAKING HALDOL 5 MG PO AND ATIVAN 1 MG PO. PT STATES I NEED MEDICATION TO RELAX I'M IN CRISIS. THE FOLLOWING MEASURES WERE IMPLEMENTED- 1. SECURITY OFFICERS SUMMONED TO COMMON ROOM AND HAD CONVERSATION WITH PT ATTEMPTING TO ALLAY HIS ANXIETY- 2. PROVIDERS JIM CALVIN N.P , DR CARBAJAL HOSPITALIST- NOTIFIED OF PTS COMPLIANT OF DETACHED RETINA THE ABOVE DOCUMENTATION REVIEWED ( DR CARBAJAL REQUESTS THAT WE NOTIFY NURSING NURSE MIDWIFE/CLINICAL INSTRUCTOR AND IF PTS SYMPTOMS PERSIST HAVE ER MD EVALUATE EYE. 3. NURSING NURSE MIDWIFE/CLINICAL INSTRUCTOR DANYELLE ZELAYA NOTIFIED OF THE ABOVE DOCUMENTATION. 4. PT GIVEN ATIVAN 1 MG PO AND HALDOL 5 MG PO PER HIS REQUEST FOR ANXIETY AND CRISIS. 5. PT REQUESTED FOOD AND WAS GIVEN 1 SANDWICH AND 240 ML OF H2O 6. VITALS 98.3 14 P. 88 SAO2 96% B/P 129/58 2099-PT OBSERVED SITTING AT TABLE IN COMMON ROOM EATING SANDWICH AND LAUGHING. IN ADDITION, HE IS JOKING WITH OTHER PTS. MINUTES LATER, PT. IS WATCHING FIREWORKS ON TV AND LAUGHING. 2199-PT OBSERVED EATING ICE CREAM . PT DOES NOT OFFER ANY C/O EYE ABNORMALITIES.
--- NOTE | 2021-11-10 04:32 | PC.NURSE ---
0001 eventually pt became under the influences of sedation. he looks very fatigued. his eyes are half open and his gait is slow and lumbering pt states that the time has come for sleep and lumbers slowly off to bed. pt states that his eye is still bothering him but it maybe the medications. he states he will evaluate vision in the morning.
[2021-11-10 07:45] VITALS: BP 130/66; PULSE 73; RESP 16; TEMP 36.8; O2SAT 98
[2021-11-10] MEDS: Aspirin Enteric Coated 81 MG TABLET.DR PO (09:59)
[2021-11-10] MEDS: carvediloL 6.25 MG TABLET PO ×2 (09:59→20:46)
[2021-11-10] MEDS: hydroCHLOROthiazide 25 MG TABLET PO (09:59)
[2021-11-10] MEDS: Losartan Potassium 50 MG TABLET 100 MG PO (09:59)
--- NOTE | 2021-11-10 12:49 | HO.PSYCHPN ---
Subjective Subjective Date of Service: 11/10/21 Reason For Visit: Bipolar disorder, anxiety disorder Subjective Notes: Conditional Voluntary Interim History: the nursing staff reported over the weekend the patient complained of sign and symptoms of a detached retina but his vital signs were stable and he was doing fairly well. Nursing staff reported the patient has been compliant with treatment no aggressive behavior and he has attended several groups. The staff has reported the patient is sure that he is going to be discharged today after the family meeting but he is still delusional, with grandiose delusions. His Zyprexa was lowered to 15 mg p.o. q.h.s. over the weekend probably due to over-sedation. On family meeting, we discussed with the patient and his , daughter and son over Zoom that since he does not have any prior history of psychiatric illness is quite unusual his case. He has a MRI from [facility] from October 16 that it is normal without any abnormalities or findings. On interview, he denies new symptoms Medication Compliance: Yes Side effects from medications: No Review of Systems Acute medical concerns: No Medical Review of Systems: unchanged Mental Status Exam Mental Status Exam Patient Appearance: Appropriate Patient Orientation: Person, Place and Situation Level of Consciousness: Awake Patient Behavior: Cooperative Mood Description: Appropriate Affect Description: Labile Patient Cognition Impaired: No Ability to Follow Directions: Good Speech Pattern: Clear Hallucinations: None Delusions: Paranoid Ideation and Grandiose Thought Process: Racing, Distracted and Evasive Thought Content: positive for Poverty of Content Judgement: Fair Diagnostics Vital Signs (24Hr): Vital Signs - 24 hr 11/09/21 18:00 Temperature 98.3 F Pulse Rate 88 Respiratory Rate 16 Blood Pressure 129/58 L Oxygen Delivery Method Room Air BMI result Body Mass Index 26.1 Labs Results: 11/09/21 10:07 Labs: Laboratory Results - last 48 hr 11/09/21 10:07 Sodium 134 L Potassium 4.3 Chloride 98 Carbon Dioxide 30 H Anion Gap 10 L BUN 16 Creatinine 0.99 Estim Creat Clear Calc 75.1 Estimated GFR > 60 Random Glucose 110 Calcium 10.5 H Medications Medications Current Medications Acetaminophen (Acetaminophen 325 Mg Tablet) 650 mg PO Q6H PRN PRN Reason: Headache/Pain Mild Scale (1-3) Al Hydroxide/Mg Hydroxide (Magnesium Hydrox/Alum Hydrox 30 Ml Oral.Susp) 30 ml PO Q6H PRN PRN Reason: Heartburn/Nausea Aspirin (Aspirin Enteric Coated 81 Mg Tablet.Dr) 81 mg PO DAILY [facility] Last Admin: 11/10/21 09:59 Dose: 81 mg Atorvastatin Calcium (Atorvastatin Calcium 40 Mg Tablet) 40 mg PO BEDTIME [facility] Last Admin: 11/09/21 20:29 Dose: 40 mg Carvedilol (Carvedilol 6.25 Mg Tablet) 6.25 mg PO BID [facility]; Protocol Last Admin: 11/10/21 09:59 Dose: 6.25 mg Haloperidol (Haloperidol 5 Mg Tablet) 5 mg PO BID PRN PRN Reason: agitation, psychosis Last Admin: 11/09/21 21:03 Dose: 5 mg Hydrochlorothiazide (Hydrochlorothiazide 25 Mg Tablet) 25 mg PO DAILY [facility] Last Admin: 11/10/21 09:59 Dose: 25 mg Hydroxyzine HCl (Hydroxyzine Hcl 25 Mg Tablet) 25 mg PO BEDTIME PRN PRN Reason: Anxiety Lorazepam (Lorazepam 1 Mg Tablet) 1 mg PO BID PRN PRN Reason: agitation, anxiety Last Admin: 11/09/21 20:29 Dose: 1 mg Losartan Potassium (Losartan Potassium 50 Mg Tablet) 100 mg PO DAILY [facility]; Protocol Last Admin: 11/10/21 09:59 Dose: 100 mg Magnesium Hydroxide (Milk Of Magnesia 30 Ml Oral.Susp) 30 ml PO DAILY PRN PRN Reason: Constipation Last Admin: 11/07/21 09:07 Dose: 30 ml Olanzapine (Olanzapine 7.5 Mg Tablet) 15 mg PO BEDTIME [facility] Last Admin: 11/09/21 20:28 Dose: 15 mg Ondansetron HCl (Ondansetron Odt 4 Mg Tab.Rapdis) 4 mg TRANSLINGU Q8H PRN PRN Reason: nausea Last Admin: 11/04/21 20:24 Dose: 4 mg Polyethylene Glycol (Polyethylene Glycol 3350 17 Gm Powd.Pack) 17 gm PO BEDTIME [facility] Last Admin: 11/09/21 20:27 Dose: 17 gm Trazodone HCl (Trazodone Hcl 50 Mg Tablet) 50 mg PO BEDTIME PRN PRN Reason: Insomnia Allergies Allergies Allergy/AdvReac Type Severity Reaction Status Date / Time No Known Allergies Allergy Verified 11/03/21 16:21 Assessment & Plan Assessment & Plan (1) Routine medical exam: Status: Acute Code(s): Z00.00 - Encounter for general adult medical examination without abnormal findings Plan 71 yo M admitted to [facility]. He is a poor historian in regards to his chronic medical diagnosis. At this time, would continue his baseline meds and check routine labs if not done so already. Otherwise, appears to be medically stable. Will sign off. Please reconsult PRN, Plan 1. Increase up to 10 mg p.o. q.h.s. to target psychosis and mood lability. 2. Gather collateral information. 3. Keep other medications as prescribed. 4. Podiatrician consult 5. CT scan head without contrast I spent ___20___ minutes with the patient and/or on the patient floor today, greater than?50% of which was spent counseling/coordinating care. Reason for contiued inpatient stay Substantial Risk for: inability to function, rapid decompensation and med/psych decompensation
[2021-11-10 18:00] VITALS: BP 102/52; PULSE 78; RESP 18; TEMP 36.6; O2SAT 99
[2021-11-10] MEDS: Atorvastatin Calcium 40 MG TABLET PO (20:46)
[2021-11-10] MEDS: OLANZapine 7.5 MG TABLET 15 MG PO (20:47)
[2021-11-10] MEDS: polyethylene glycoL 3350 17 GM POWD.PACK PO (20:51)
[2021-11-10] MEDS: Acetaminophen 325 MG TABLET 650 MG PO (23:52)
[2021-11-11 07:30] VITALS: BP 138/59; PULSE 70; RESP 18; TEMP 36.2; O2SAT 97
[2021-11-11] MEDS: Aspirin Enteric Coated 81 MG TABLET.DR PO (08:11)
[2021-11-11] MEDS: hydroCHLOROthiazide 25 MG TABLET PO (08:12)
[2021-11-11] MEDS: carvediloL 6.25 MG TABLET PO ×2 (08:12→20:27)
[2021-11-11] MEDS: Losartan Potassium 50 MG TABLET 100 MG PO (08:12)
[2021-11-11] MEDS: Acetaminophen 325 MG TABLET 650 MG PO (14:10)
--- NOTE | 2021-11-11 15:45 | P.PNPSI_ITS ---
Subjective Subjective Date of Service: 11/11/21 Reason For Visit: Bipolar disorder, anxiety disorder Subjective Notes: Conditional Voluntary Interim History: The nursing staff reported that the patient has been intrusive with peers and staff. He still grandiose and confused at times but easily redirectable. Yesterday, the patient stated that he was galeano and he is not going to live with his again. We had a family meeting yesterday and it is clear that the patient still grandiose and psychotic. No evidence of side effects with the increase of olanzapine over the weekend. On interview we discussed risks benefits and side effects and he agreed to in crease olanzapine at night. Medication Compliance: Yes Side effects from medications: No Attending Groups: Yes Review of Systems Acute medical concerns: No Medical Review of Systems: unchanged Mental Status Exam Mental Status Exam Patient Appearance: Well Grooomed Patient Orientation: Person and Situation Level of Consciousness: Awake Patient Behavior: Cooperative Mood Description: Withdrawn Affect Description: Labile Patient Cognition Impaired: Yes Ability to Follow Directions: Good Speech Pattern: Clear Hallucinations: None Delusions: Paranoid Ideation and Grandiose Thought Process: Distracted and Evasive Thought Content: positive for [place] and positive for Poverty of Content Judgement: Fair Diagnostics Vital Signs (24Hr): Vital Signs - 24 hr 11/10/21 18:00 11/11/21 07:30 Temperature 97.8 F 97.2 F Pulse Rate 78 70 Respiratory Rate 18 18 Blood Pressure 102/52 L 138/59 L Pulse Oximetry 99 97 Oxygen Delivery Method Room Air Room Air BMI result Body Mass Index 26.1 Labs Results: 11/09/21 10:07 Imaging Radiology Impressions: ITS Impressions Head CT 11/10/21 16:10 IMPRESSION: Unremarkable exam. Medications Medications Current Medications Acetaminophen (Acetaminophen 325 Mg Tablet) 650 mg PO Q6H PRN PRN Reason: Headache/Pain Mild Scale (1-3) Last Admin: 11/11/21 14:10 Dose: 650 mg Al Hydroxide/Mg Hydroxide (Magnesium Hydrox/Alum Hydrox 30 Ml Oral.Susp) 30 ml PO Q6H PRN PRN Reason: Heartburn/Nausea Aspirin (Aspirin Enteric Coated 81 Mg Tablet.) 81 mg PO DAILY [facility] Last Admin: 11/11/21 08:11 Dose: 81 mg Atorvastatin Calcium (Atorvastatin Calcium 40 Mg Tablet) 40 mg PO BEDTIME [facility] Last Admin: 11/10/21 20:46 Dose: 40 mg Carvedilol (Carvedilol 6.25 Mg Tablet) 6.25 mg PO BID [facility]; Protocol Last Admin: 11/11/21 08:12 Dose: 6.25 mg Haloperidol (Haloperidol 5 Mg Tablet) 5 mg PO BID PRN PRN Reason: agitation, psychosis Last Admin: 11/09/21 21:03 Dose: 5 mg Hydrochlorothiazide (Hydrochlorothiazide 25 Mg Tablet) 25 mg PO DAILY [facility] Last Admin: 11/11/21 08:12 Dose: 25 mg Hydroxyzine HCl (Hydroxyzine Hcl 25 Mg Tablet) 25 mg PO BEDTIME PRN PRN Reason: Anxiety Lorazepam (Lorazepam 1 Mg Tablet) 1 mg PO BID PRN PRN Reason: agitation, anxiety Last Admin: 11/09/21 20:29 Dose: 1 mg Losartan Potassium (Losartan Potassium 50 Mg Tablet) 100 mg PO DAILY [facility]; Protocol Last Admin: 11/11/21 08:12 Dose: 100 mg Magnesium Hydroxide (Milk Of Magnesia 30 Ml Oral.Susp) 30 ml PO DAILY PRN PRN Reason: Constipation Last Admin: 11/07/21 09:07 Dose: 30 ml Olanzapine (Olanzapine 7.5 Mg Tablet) 15 mg PO BEDTIME [facility] Last Admin: 11/10/21 20:47 Dose: 15 mg Ondansetron HCl (Ondansetron Odt 4 Mg Tab.Rapdis) 4 mg TRANSLINGU Q8H PRN PRN Reason: nausea Last Admin: 11/04/21 20:24 Dose: 4 mg Polyethylene Glycol (Polyethylene Glycol 3350 17 Gm Powd.Pack) 17 gm PO BEDTIME [facility] Last Admin: 11/10/21 20:51 Dose: 17 gm Trazodone HCl (Trazodone Hcl 50 Mg Tablet) 50 mg PO BEDTIME PRN PRN Reason: Insomnia Allergies Allergies Allergy/AdvReac Type Severity Reaction Status Date / Time No Known Allergies Allergy Verified 11/03/21 16:21 Assessment & Plan Assessment & Plan (1) Routine medical exam: Status: Acute Code(s): Z00.00 - Encounter for general adult medical examination without abnormal findings Plan 71 yo M admitted to [facility]. He is a poor historian in regards to his chronic medical diagnosis. At this time, would continue his baseline meds and check routine labs if not done so already. Otherwise, appears to be medically stable. Will sign off. Please reconsult PRN, Plan 1. Increase up to 20 mg p.o. q.h.s. to target psychosis and mood lability. 2. Gather collateral information. 3. Keep other medications as prescribed. I spent __20____ minutes with the patient and/or on the patient floor today, greater than?50% of which was spent counseling/coordinating care. Reason for contiued inpatient stay Substantial Risk for: inability to function, rapid decompensation and med/psych decompensation
[2021-11-11 18:00] VITALS: BP 133/61; PULSE 75; RESP 16; TEMP 36.6; O2SAT 100
[2021-11-11] MEDS: Atorvastatin Calcium 40 MG TABLET PO (20:27)
[2021-11-11] MEDS: OLANZapine 10 MG TABLET 20 MG PO (20:27)
[2021-11-11] MEDS: polyethylene glycoL 3350 17 GM POWD.PACK PO (20:27)
[2021-11-12 07:00] VITALS: BP 133/69; PULSE 75; RESP 16; TEMP 36.2; O2SAT 98; BMI 26.7
[2021-11-12] MEDS: Aspirin Enteric Coated 81 MG TABLET.DR PO (08:15)
[2021-11-12] MEDS: hydroCHLOROthiazide 25 MG TABLET PO (08:15)
[2021-11-12] MEDS: Losartan Potassium 50 MG TABLET 100 MG PO (08:15)
[2021-11-12] MEDS: carvediloL 6.25 MG TABLET PO ×2 (08:16→21:46)
--- NOTE | 2021-11-12 09:19 | PC.NURSE ---
[facility] cognitive assessment administered this date. Environment modified to decrease auditory and visual distraction for most objective outcome. Pts score 12/30 is indicative of moderate neurocognitive deficit. Pts attending MD, nurse, social insurance adviser, and OTR notified of pt result.
[2021-11-12 11:00] VITALS: BP 119/58; PULSE 77; RESP 18; TEMP 37.1; O2SAT 95
--- NOTE | 2021-11-12 16:35 | HO.PSYCHPN ---
Subjective Subjective Date of Service: 11/12/21 Reason For Visit: Bipolar disorder, anxiety disorder Subjective Notes: Conditional Voluntary Interim History: His court 05/07 on his [place]. He remains grandiose delusional and intrusive but redirectable. No over-sedation. He stayed up all night and he could not sleep, he refused p.r.n. medications. On interview the patient was pleasant and cooperative still manic and psychotic Mental Status Exam Mental Status Exam Patient Appearance: Well Grooomed Patient Orientation: Person and Situation Level of Consciousness: Awake Patient Behavior: Cooperative Mood Description: Withdrawn Affect Description: Constricted Patient Cognition Impaired: Yes Ability to Follow Directions: Good Speech Pattern: Clear Hallucinations: None Delusions: Paranoid Ideation and Grandiose Thought Process: Distracted Thought Content: positive for Circumstantial Judgement: Fair Diagnostics Vital Signs (24Hr): Vital Signs - 24 hr 11/11/21 18:00 11/12/21 07:00 Temperature 97.9 F 97.2 F Pulse Rate 75 75 Respiratory Rate 16 16 Blood Pressure 133/61 133/69 Pulse Oximetry 100 98 Oxygen Delivery Method Room Air Room Air BMI result Body Mass Index 26.7 Labs Results: 11/09/21 10:07 Imaging Radiology Impressions: ITS Impressions Head CT 11/10/21 16:10 IMPRESSION: Unremarkable exam. Medications Medications Current Medications Acetaminophen (Acetaminophen 325 Mg Tablet) 650 mg PO Q6H PRN PRN Reason: Headache/Pain Mild Scale (1-3) Last Admin: 11/11/21 14:10 Dose: 650 mg Al Hydroxide/Mg Hydroxide (Magnesium Hydrox/Alum Hydrox 30 Ml Oral.Susp) 30 ml PO Q6H PRN PRN Reason: Heartburn/Nausea Aspirin (Aspirin Enteric Coated 81 Mg Tablet.) 81 mg PO DAILY [facility] Last Admin: 11/12/21 08:15 Dose: 81 mg Atorvastatin Calcium (Atorvastatin Calcium 40 Mg Tablet) 40 mg PO BEDTIME [facility] Last Admin: 11/11/21 20:27 Dose: 40 mg Carvedilol (Carvedilol 6.25 Mg Tablet) 6.25 mg PO BID [facility]; Protocol Last Admin: 11/12/21 08:16 Dose: 6.25 mg Haloperidol (Haloperidol 5 Mg Tablet) 5 mg PO BID PRN PRN Reason: agitation, psychosis Last Admin: 11/09/21 21:03 Dose: 5 mg Hydrochlorothiazide (Hydrochlorothiazide 25 Mg Tablet) 25 mg PO DAILY [facility] Last Admin: 11/12/21 08:15 Dose: 25 mg Hydroxyzine HCl (Hydroxyzine Hcl 25 Mg Tablet) 25 mg PO BEDTIME PRN PRN Reason: Anxiety Lorazepam (Lorazepam 1 Mg Tablet) 1 mg PO BID PRN PRN Reason: agitation, anxiety Last Admin: 11/09/21 20:29 Dose: 1 mg Losartan Potassium (Losartan Potassium 50 Mg Tablet) 100 mg PO DAILY [facility]; Protocol Last Admin: 11/12/21 08:15 Dose: 100 mg Magnesium Hydroxide (Milk Of Magnesia 30 Ml Oral.Susp) 30 ml PO DAILY PRN PRN Reason: Constipation Last Admin: 11/07/21 09:07 Dose: 30 ml Olanzapine (Olanzapine 10 Mg Tablet) 20 mg PO BEDTIME [facility] Last Admin: 11/11/21 20:27 Dose: 20 mg Ondansetron HCl (Ondansetron Odt 4 Mg Tab.Rapdis) 4 mg TRANSLINGU Q8H PRN PRN Reason: nausea Last Admin: 11/04/21 20:24 Dose: 4 mg Polyethylene Glycol (Polyethylene Glycol 3350 17 Gm Powd.Pack) 17 gm PO BEDTIME [facility] Last Admin: 11/11/21 20:27 Dose: 17 gm Trazodone HCl (Trazodone Hcl 50 Mg Tablet) 50 mg PO BEDTIME PRN PRN Reason: Insomnia Allergies Allergies Allergy/AdvReac Type Severity Reaction Status Date / Time No Known Allergies Allergy Verified 11/03/21 16:21 Assessment & Plan Assessment & Plan (1) Routine medical exam: Status: Acute Code(s): Z00.00 - Encounter for general adult medical examination without abnormal findings Plan 71 yo M admitted to [facility]. He is a poor historian in regards to his chronic medical diagnosis. At this time, would continue his baseline meds and check routine labs if not done so already. Otherwise, appears to be medically stable. Will sign off. Please reconsult PRN, Plan 1. Increase up to 20 mg p.o. q.h.s. to target psychosis and mood lability. 2. Gather collateral information. 3. Keep other medications as prescribed. I spent __20____ minutes with the patient and/or on the patient floor today, greater than?50% of which was spent counseling/coordinating care. Reason for contiued inpatient stay Substantial Risk for: inability to function, rapid decompensation and med/psych decompensation
[2021-11-12] MEDS: OLANZapine 10 MG TABLET 20 MG PO (21:46)
[2021-11-12] MEDS: polyethylene glycoL 3350 17 GM POWD.PACK PO (21:46)
[2021-11-12] MEDS: Atorvastatin Calcium 40 MG TABLET PO (21:46)
[2021-11-12 21:48] VITALS: BP 128/67; PULSE 72; TEMP 36.9; O2SAT 98
[2021-11-13 07:00] VITALS: BP 134/63; PULSE 66; RESP 17; TEMP 36.3; O2SAT 98
[2021-11-13] MEDS: carvediloL 6.25 MG TABLET PO ×2 (08:49→20:46)
[2021-11-13] MEDS: Aspirin Enteric Coated 81 MG TABLET.DR PO (08:49)
[2021-11-13] MEDS: Losartan Potassium 50 MG TABLET 100 MG PO (08:49)
[2021-11-13] MEDS: hydroCHLOROthiazide 25 MG TABLET PO (08:49)
[2021-11-13] MEDS: Acetaminophen 325 MG TABLET 650 MG PO ×3 (09:14→20:44)
--- NOTE | 2021-11-13 12:58 | HO.PSYCHPN ---
Subjective Subjective Date of Service: 11/13/21 Reason For Visit: Bipolar disorder, anxiety disorder Subjective Notes: Conditional Voluntary Interim History: The nursing staff reported the patient has participated in groups but he has very poor boundaries. He was seen having restless sleep probably having nightmares, the staff reported that he talks in his sleep. Yesterday he was showing exit seeking behavior after his and a friend came to visit him. The staff reported that there has not been changes on his alex or psychosis since Zyprexa was increased up to 20 mg. Today we discussed risks, benefits, side-effects and alternatives and sings psychosis and alex has not improved we will add Depakote to target mood lability. Mental Status Exam Mental Status Exam Patient Appearance: Appropriate Patient Orientation: Person and Situation Level of Consciousness: Awake Patient Behavior: Cooperative Mood Description: Cheerful and Anxious Affect Description: Withdrawn Patient Cognition Impaired: Yes Ability to Follow Directions: Good Speech Pattern: Clear Hallucinations: None Delusions: Paranoid Ideation and Grandiose Thought Process: Distracted and Evasive Thought Content: positive for [place] [employer] and positive for Poverty of Content Judgement: Fair Diagnostics Vital Signs (24Hr): Vital Signs - 24 hr 11/12/21 21:48 11/13/21 07:00 Temperature 98.5 F 97.3 F Pulse Rate 72 66 Respiratory Rate 17 Blood Pressure 128/67 134/63 Pulse Oximetry 98 98 Oxygen Delivery Method Room Air Room Air BMI result Body Mass Index 26.7 Labs Results: 11/09/21 10:07 Imaging Radiology Impressions: ITS Impressions Head CT 11/10/21 16:10 IMPRESSION: Unremarkable exam. Medications Medications Current Medications Acetaminophen (Acetaminophen 325 Mg Tablet) 650 mg PO Q6H PRN PRN Reason: Headache/Pain Mild Scale (1-3) Last Admin: 11/13/21 09:14 Dose: 650 mg Al Hydroxide/Mg Hydroxide (Magnesium Hydrox/Alum Hydrox 30 Ml Oral.Susp) 30 ml PO Q6H PRN PRN Reason: Heartburn/Nausea Aspirin (Aspirin Enteric Coated 81 Mg Tablet.) 81 mg PO DAILY [facility] Last Admin: 11/13/21 08:49 Dose: 81 mg Atorvastatin Calcium (Atorvastatin Calcium 40 Mg Tablet) 40 mg PO BEDTIME [facility] Last Admin: 11/12/21 21:46 Dose: 40 mg Carvedilol (Carvedilol 6.25 Mg Tablet) 6.25 mg PO BID [facility]; Protocol Last Admin: 11/13/21 08:49 Dose: 6.25 mg Haloperidol (Haloperidol 5 Mg Tablet) 5 mg PO BID PRN PRN Reason: agitation, psychosis Last Admin: 11/09/21 21:03 Dose: 5 mg Hydrochlorothiazide (Hydrochlorothiazide 25 Mg Tablet) 25 mg PO DAILY [facility] Last Admin: 11/13/21 08:49 Dose: 25 mg Hydroxyzine HCl (Hydroxyzine Hcl 25 Mg Tablet) 25 mg PO BEDTIME PRN PRN Reason: Anxiety Losartan Potassium (Losartan Potassium 50 Mg Tablet) 100 mg PO DAILY [facility]; Protocol Last Admin: 11/13/21 08:49 Dose: 100 mg Magnesium Hydroxide (Milk Of Magnesia 30 Ml Oral.Susp) 30 ml PO DAILY PRN PRN Reason: Constipation Last Admin: 11/07/21 09:07 Dose: 30 ml Olanzapine (Olanzapine 10 Mg Tablet) 20 mg PO BEDTIME [facility] Last Admin: 11/12/21 21:46 Dose: 20 mg Ondansetron HCl (Ondansetron Odt 4 Mg Tab.Rapdis) 4 mg TRANSLINGU Q8H PRN PRN Reason: nausea Last Admin: 11/04/21 20:24 Dose: 4 mg Polyethylene Glycol (Polyethylene Glycol 3350 17 Gm Powd.Pack) 17 gm PO BEDTIME [facility] Last Admin: 11/12/21 21:46 Dose: 17 gm Trazodone HCl (Trazodone Hcl 50 Mg Tablet) 50 mg PO BEDTIME PRN PRN Reason: Insomnia Allergies Allergies Allergy/AdvReac Type Severity Reaction Status Date / Time No Known Allergies Allergy Verified 11/03/21 16:21 Assessment & Plan Assessment & Plan (1) Routine medical exam: Status: Acute Code(s): Z00.00 - Encounter for general adult medical examination without abnormal findings Plan 71 yo M admitted to [facility]. He is a poor historian in regards to his chronic medical diagnosis. At this time, would continue his baseline meds and check routine labs if not done so already. Otherwise, appears to be medically stable. Will sign off. Please reconsult PRN, Plan 1. Increase Zyprexaup to 20 mg p.o. q.h.s. to target psychosis and mood lability. It was increased last Tuesday. 2. Gather collateral information. 3. Start Depakote 250 mg po tid. 4. Bloodwork for Tuesday. I spent ___20___ minutes with the patient and/or on the patient floor today, greater than?50% of which was spent counseling/coordinating care. Reason for contiued inpatient stay Substantial Risk for: inability to function, rapid decompensation and med/psych decompensation
[2021-11-13] MEDS: Divalproex Sodium 250 MG TABLET.DR PO ×2 (15:20→20:46)
[2021-11-13 18:00] VITALS: BP 116/58; PULSE 80; RESP 19; TEMP 36.6; O2SAT 99
[2021-11-13] MEDS: polyethylene glycoL 3350 17 GM POWD.PACK PO (20:43)
[2021-11-13] MEDS: OLANZapine 10 MG TABLET 20 MG PO (20:44)
[2021-11-13] MEDS: Atorvastatin Calcium 40 MG TABLET PO (20:46)
[2021-11-14 06:00] VITALS: BP 149/73; PULSE 79; RESP 17; TEMP 36.2; O2SAT 100
[2021-11-14] MEDS: Divalproex Sodium 250 MG TABLET.DR PO (08:35)
[2021-11-14] MEDS: Aspirin Enteric Coated 81 MG TABLET.DR PO (08:35)
[2021-11-14] MEDS: Losartan Potassium 50 MG TABLET 100 MG PO (08:35)
[2021-11-14] MEDS: carvediloL 6.25 MG TABLET PO ×2 (08:35→21:49)
[2021-11-14] MEDS: hydroCHLOROthiazide 25 MG TABLET PO (08:35)
[2021-11-14 18:00] VITALS: BP 115/56; PULSE 80; RESP 12; TEMP 36.8; O2SAT 100
--- NOTE | 2021-11-14 18:28 | P.PNPSI_ITS ---
Subjective Subjective Date of Service: 11/14/21 Reason For Visit: Bipolar disorder, anxiety disorder Interim History: Patient pleasant, friendly sitting and playing cards with peers. He told typewriter assembler he had a million dollars some kind of currency but it was just electronic not usable. Says he would very much like to discharge home discussed 3 day notice with typewriter assembler which he signed. Otherwise no complaints. Staff reports patient is taking his medications; intermittently confused with some grandiose expressed thoughts Mental Status Exam Mental Status Exam Patient Appearance: Appropriate Patient Orientation: Person and Place Level of Consciousness: Awake Patient Behavior: Cooperative and Good Eye Contact Mood Description: Cheerful and Anxious Affect Description: Expansive Patient Cognition Impaired: Yes Ability to Follow Directions: Good Speech Pattern: Clear Hallucinations: None Delusions: Grandiose Thought Process: Distracted and Goal Oriented Thought Content: positive for [place] Judgement: Fair Diagnostics Vital Signs (24Hr): Vital Signs - 24 hr 11/14/21 06:00 Temperature 97.2 F Pulse Rate 79 Respiratory Rate 17 Blood Pressure 149/73 H Pulse Oximetry 100 Oxygen Delivery Method Room Air BMI result Body Mass Index 26.7 Labs Results: 11/09/21 10:07 Imaging Radiology Impressions: ITS Impressions Head CT 11/10/21 16:10 IMPRESSION: Unremarkable exam. Medications Medications Current Medications Acetaminophen (Acetaminophen 325 Mg Tablet) 650 mg PO Q6H PRN PRN Reason: Headache/Pain Mild Scale (1-3) Last Admin: 11/13/21 20:44 Dose: 650 mg Al Hydroxide/Mg Hydroxide (Magnesium Hydrox/Alum Hydrox 30 Ml Oral.Susp) 30 ml PO Q6H PRN PRN Reason: Heartburn/Nausea Aspirin (Aspirin Enteric Coated 81 Mg Tablet.) 81 mg PO DAILY [facility] Last Admin: 11/14/21 08:35 Dose: 81 mg Atorvastatin Calcium (Atorvastatin Calcium 40 Mg Tablet) 40 mg PO BEDTIME [facility] Last Admin: 11/13/21 20:46 Dose: 40 mg Carvedilol (Carvedilol 6.25 Mg Tablet) 6.25 mg PO BID [facility]; Protocol Last Admin: 11/14/21 08:35 Dose: 6.25 mg Divalproex Sodium (Divalproex Sodium 250 Mg Tablet.) 250 mg PO TID [facility] Last Admin: 11/14/21 16:09 Dose: Not Given Haloperidol (Haloperidol 5 Mg Tablet) 5 mg PO BID PRN PRN Reason: agitation, psychosis Last Admin: 11/09/21 21:03 Dose: 5 mg Hydrochlorothiazide (Hydrochlorothiazide 25 Mg Tablet) 25 mg PO DAILY [facility] Last Admin: 11/14/21 08:35 Dose: 25 mg Hydroxyzine HCl (Hydroxyzine Hcl 25 Mg Tablet) 25 mg PO BEDTIME PRN PRN Reason: Anxiety Losartan Potassium (Losartan Potassium 50 Mg Tablet) 100 mg PO DAILY [facility]; Protocol Last Admin: 11/14/21 08:35 Dose: 100 mg Magnesium Hydroxide (Milk Of Magnesia 30 Ml Oral.Susp) 30 ml PO DAILY PRN PRN Reason: Constipation Last Admin: 11/07/21 09:07 Dose: 30 ml Olanzapine (Olanzapine 10 Mg Tablet) 20 mg PO BEDTIME [facility] Last Admin: 11/13/21 20:44 Dose: 20 mg Ondansetron HCl (Ondansetron Odt 4 Mg Tab.Rapdis) 4 mg TRANSLINGU Q8H PRN PRN Reason: nausea Last Admin: 11/04/21 20:24 Dose: 4 mg Polyethylene Glycol (Polyethylene Glycol 3350 17 Gm Powd.Pack) 17 gm PO BEDTIME [facility] Last Admin: 11/13/21 20:43 Dose: 17 gm Trazodone HCl (Trazodone Hcl 50 Mg Tablet) 50 mg PO BEDTIME PRN PRN Reason: Insomnia Allergies Allergies Allergy/AdvReac Type Severity Reaction Status Date / Time No Known Allergies Allergy Verified 11/03/21 16:21 Assessment & Plan Assessment & Plan (1) Routine medical exam: Status: Acute Code(s): Z00.00 - Encounter for general adult medical examination without abnormal findings Plan 71 yo M admitted to [facility]. He is a poor historian in regards to his chronic medical diagnosis. At this time, would continue his baseline meds and check routine labs if not done so already. Otherwise, appears to be medically stable. Will sign off. Please reconsult PRN, Plan 1. Increase Zyprexaup to 20 mg p.o. q.h.s. to target psychosis and mood lability. It was increased last Tuesday. 2. Gather collateral information. 3. Start Depakote 250 mg po tid. 4. Bloodwork for Tuesday morning. 11/14 no change in current regimen Patient signed 3 day notice I spent minutes with the patient and/or on the patient floor today, greater than?50% of which was spent counseling/coordinating care. Reason for contiued inpatient stay Substantial Risk for: med/psych decompensation
--- NOTE | 2021-11-14 18:56 | PC.NURSE ---
Pt signed a three day notice on 11-14-2021. SW, and CC notified.
[2021-11-14] MEDS: Atorvastatin Calcium 40 MG TABLET PO (21:49)
[2021-11-14] MEDS: polyethylene glycoL 3350 17 GM POWD.PACK PO (21:50)
[2021-11-15 06:00] VITALS: BP 120/60; PULSE 83; RESP 17; TEMP 36.4; O2SAT 97
[2021-11-15] MEDS: Aspirin Enteric Coated 81 MG TABLET.DR PO (08:45)
[2021-11-15] MEDS: Losartan Potassium 50 MG TABLET 100 MG PO (08:45)
[2021-11-15] MEDS: carvediloL 6.25 MG TABLET PO ×2 (08:45→19:28)
[2021-11-15] MEDS: Divalproex Sodium 250 MG TABLET.DR PO (08:45)
[2021-11-15] MEDS: hydroCHLOROthiazide 25 MG TABLET PO (08:45)
--- NOTE | 2021-11-15 16:57 | HO.PSYCHPN ---
Subjective Subjective Date of Service: 11/15/21 Reason For Visit: Bipolar disorder, anxiety disorder Interim History: friendly, cooperative; says hopeful that he'll be discharged since signed 3 day notice. 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 Pt talked about relative who is orthopedic surgeon and hip replacement surgery. Nursing staff reports pt remains grandiose, telling staff he's a millionaire and will buy them cars, take them on vacations... Mental Status Exam Mental Status Exam Patient Appearance: Appropriate Patient Orientation: Person and Place Level of Consciousness: Awake Patient Behavior: Cooperative and Good Eye Contact Mood Description: Cheerful and Anxious Affect Description: Expansive Patient Cognition Impaired: Yes Ability to Follow Directions: Good Speech Pattern: Clear Hallucinations: None Delusions: Grandiose Thought Process: Distracted and Goal Oriented Thought Content: positive for [place] Judgement: Fair Diagnostics Vital Signs (24Hr): Vital Signs - 24 hr 11/14/21 18:00 11/15/21 06:00 Temperature 98.2 F 97.5 F Pulse Rate 80 83 Respiratory Rate 12 17 Blood Pressure 115/56 L 120/60 Pulse Oximetry 100 97 Oxygen Delivery Method Room Air Room Air BMI result Body Mass Index 26.7 Labs Results: 11/09/21 10:07 Imaging Radiology Impressions: ITS Impressions Head CT 11/10/21 16:10 IMPRESSION: Unremarkable exam. Medications Medications Current Medications Acetaminophen (Acetaminophen 325 Mg Tablet) 650 mg PO Q6H PRN PRN Reason: Headache/Pain Mild Scale (1-3) Last Admin: 11/13/21 20:44 Dose: 650 mg Al Hydroxide/Mg Hydroxide (Magnesium Hydrox/Alum Hydrox 30 Ml Oral.Susp) 30 ml PO Q6H PRN PRN Reason: Heartburn/Nausea Aspirin (Aspirin Enteric Coated 81 Mg Tablet.) 81 mg PO DAILY [facility] Last Admin: 11/15/21 08:45 Dose: 81 mg Atorvastatin Calcium (Atorvastatin Calcium 40 Mg Tablet) 40 mg PO BEDTIME [facility] Last Admin: 11/14/21 21:49 Dose: 40 mg Carvedilol (Carvedilol 6.25 Mg Tablet) 6.25 mg PO BID [facility]; Protocol Last Admin: 11/15/21 08:45 Dose: 6.25 mg Divalproex Sodium (Divalproex Sodium 250 Mg Tablet.) 250 mg PO TID [facility] Last Admin: 11/15/21 14:46 Dose: Not Given Haloperidol (Haloperidol 5 Mg Tablet) 5 mg PO BID PRN PRN Reason: agitation, psychosis Last Admin: 11/09/21 21:03 Dose: 5 mg Hydrochlorothiazide (Hydrochlorothiazide 25 Mg Tablet) 25 mg PO DAILY [facility] Last Admin: 11/15/21 08:45 Dose: 25 mg Hydroxyzine HCl (Hydroxyzine Hcl 25 Mg Tablet) 25 mg PO BEDTIME PRN PRN Reason: Anxiety Losartan Potassium (Losartan Potassium 50 Mg Tablet) 100 mg PO DAILY [facility]; Protocol Last Admin: 11/15/21 08:45 Dose: 100 mg Magnesium Hydroxide (Milk Of Magnesia 30 Ml Oral.Susp) 30 ml PO DAILY PRN PRN Reason: Constipation Last Admin: 11/07/21 09:07 Dose: 30 ml Olanzapine (Olanzapine 10 Mg Tablet) 20 mg PO BEDTIME [facility] Last Admin: 11/14/21 21:59 Dose: Not Given Ondansetron HCl (Ondansetron Odt 4 Mg Tab.Rapdis) 4 mg TRANSLINGU Q8H PRN PRN Reason: nausea Last Admin: 11/04/21 20:24 Dose: 4 mg Polyethylene Glycol (Polyethylene Glycol 3350 17 Gm Powd.Pack) 17 gm PO BEDTIME [facility] Last Admin: 11/14/21 21:50 Dose: 17 gm Trazodone HCl (Trazodone Hcl 50 Mg Tablet) 50 mg PO BEDTIME PRN PRN Reason: Insomnia Allergies Allergies Allergy/AdvReac Type Severity Reaction Status Date / Time No Known Allergies Allergy Verified 11/03/21 16:21 Assessment & Plan Assessment & Plan (1) Routine medical exam: Status: Acute Code(s): Z00.00 - Encounter for general adult medical examination without abnormal findings Plan 71 yo M admitted to [facility]. He is a poor historian in regards to his chronic medical diagnosis. At this time, would continue his baseline meds and check routine labs if not done so already. Otherwise, appears to be medically stable. Will sign off. Please reconsult PRN, Plan 1. Increase Zyprexaup to 20 mg p.o. q.h.s. to target psychosis and mood lability. It was increased last Tuesday. 2. Gather collateral information. 3. Start Depakote 250 mg po tid. 4. Bloodwork for Tuesday. 11/14 no change in current regimen Patient signed 3 day notice 11/15 added Simethicone; otherwise continue current tx plan I spent minutes with the patient and/or on the patient floor today, greater than?50% of which was spent counseling/coordinating care. Patient educated on: medical condition Informed Consent: understands Reason for contiued inpatient stay Substantial Risk for: other
[2021-11-15 18:00] VITALS: BP 119/58; PULSE 85; RESP 16; TEMP 36.8; O2SAT 99
[2021-11-15] MEDS: Simethicone 80 MG TAB.CHEW PO (19:28)
[2021-11-15] MEDS: Atorvastatin Calcium 40 MG TABLET PO (19:28)
[2021-11-15] MEDS: OLANZapine 10 MG TABLET 20 MG PO (19:28)
[2021-11-16 07:00] VITALS: BP 130/66; PULSE 75; RESP 17; TEMP 37.4; O2SAT 100
[2021-11-16 07:55] LABS: MANUAL DIFF FLAG NO
[2021-11-16 08:00] LABS: Basophils Percent Auto 0.7 % (0-2); Eosinophils Absolute Auto 0.2 X10*3/uL (0.0-0.4); Eosinophils Percent Auto 3.3 % (0-4); Hematocrit 34.2 % (42.0-52.0); Hemoglobin 11.7 g/dl (14.0-18.0); Imm Gran Abs Auto 0.02 X10*3/uL (0.00-0.03); Imm Gran Pct Auto 0.4 % (0.0-0.4); Lymphocytes Absolute Auto 1.2 X10*3/uL (1.2-4.9); Lymphocytes Percent Auto 25.9 % (20-40); Mean Corpuscular HGB Conc 34.2 g/dl (31.0-36.0); Mean Corpuscular Hemoglobin 31.7 pg (27.0-33.0); Mean Corpuscular Volume 92.7 fL (80.0-98.0); Monocytes Absolute Auto 0.3 X10*3/uL (0.1-1.2); Monocytes Percent Auto 6.6 % (2-11); Neutrophils Absolute Auto 2.9 x10*3/uL (2.0-8.3); Neutrophils Percent Auto 63.1 % (45-73); Platelet Count 158 X10*3/uL (160-400); Red Blood Count 3.69 X10*6/uL (4.60-5.80); Red Cell Distribution Width 13.1 % (11.0-16.0); White Blood Count 4.5 X10*3/uL (4.8-10.8)
[2021-11-16] MEDS: Losartan Potassium 50 MG TABLET 100 MG PO (08:22)
[2021-11-16] MEDS: Divalproex Sodium 250 MG TABLET.DR PO (08:22)
[2021-11-16] MEDS: hydroCHLOROthiazide 25 MG TABLET PO (08:23)
[2021-11-16] MEDS: carvediloL 6.25 MG TABLET PO ×2 (08:23→21:54)
[2021-11-16] MEDS: Aspirin Enteric Coated 81 MG TABLET.DR PO (08:23)
[2021-11-16 08:30] LABS: Alanine Aminotransferase 25 U/L (0-40); Albumin Level 3.9 g/dL (3.5-5.0); Alkaline Phosphatase 59 U/L (39-117); Anion Gap 7 (12-20); Aspartate Amino Transferase 19 U/L (5-37); Bilirubin Direct 0.4 mg/dL (0.0-0.5); Bilirubin Total 0.8 mg/dL (0.0-1.0); Blood Urea Nitrogen 16 mg/dL (9-16); Carbon Dioxide 32 mmol/L (22-29); Chloride 96 mmol/L (96-108); Creatinine Clr Calc Pharmacy 92.9; Estimated Glomerular Filt Rate > 60; Glucose Random 105 mg/dL (60-115); Potassium 3.8 mmol/L (3.3-5.1); Sodium 131 mmol/L (135-145); Total Protein 5.7 g/dL (6.5-8.0)
[2021-11-16 08:51] LABS: Valproate 14.2 mcg/mL (50.0-100.0)
[2021-11-16] MEDS: Simethicone 80 MG TAB.CHEW PO ×2 (09:41→22:03)
--- NOTE | 2021-11-16 14:13 | HO.PSYCHPN ---
Subjective Subjective Date of Service: 11/16/21 Reason For Visit: Bipolar disorder, anxiety disorder Subjective Notes: Conditional Voluntary and 3 Day Interim History: the nursing staff reported the patient has been grandiose stating that he is going to buy test like ours to the staff members. He refuses Depakote on November 14 and November 15 and he has refused Zyprexa last night. He is in a 3 day notice. On interview, the patient reported over-sedation with Depakote so we will change mostly at night. We will consider to filed for Section 7 and 8 Mental Status Exam Mental Status Exam Patient Appearance: Unkempt Patient Orientation: Person and Situation Level of Consciousness: Awake Patient Behavior: Cooperative Mood Description: Withdrawn Affect Description: Relaxed Patient Cognition Impaired: Yes Ability to Follow Directions: Fair Speech Pattern: Clear Hallucinations: None Delusions: Grandiose Thought Process: Illogical and Distracted Thought Content: positive for [place] and positive for Poverty of Content Judgement: Fair Diagnostics Vital Signs (24Hr): Vital Signs - 24 hr 11/15/21 18:00 11/16/21 07:00 Temperature 98.3 F 99.3 F Pulse Rate 85 75 Respiratory Rate 16 17 Blood Pressure 119/58 L 130/66 Pulse Oximetry 99 100 Oxygen Delivery Method Room Air Room Air BMI result Body Mass Index 26.7 Labs Results: 11/16/21 07:45 11/16/21 07:45 Labs: Laboratory Results - last 48 hr 11/16/21 11/16/21 11/16/21 07:45 07:45 07:45 WBC 4.5 L RBC 3.69 L Hgb 11.7 L Hct 34.2 L MCV 92.7 MCH 31.7 MCHC 34.2 RDW 13.1 Plt Count 158 L MPV 10.0 Immature Gran % (Auto) 0.4 Neut % (Auto) 63.1 Lymph % (Auto) 25.9 Cass % (Auto) 6.6 Eos % (Auto) 3.3 Baso % (Auto) 0.7 Lymph # (Auto) 1.2 Cass # (Auto) 0.3 Eos # (Auto) 0.2 Baso # (Auto) 0.0 Abs Immat Gran (auto) 0.02 Absolute Neuts (auto) 2.9 Absolute Nucleated RBC 0.000 Nucleated RBC % (auto) 0.0 Sodium 131 L Potassium 3.8 Chloride 96 Carbon Dioxide 32 H Anion Gap 7 L BUN 16 Creatinine 0.80 Estim Creat Clear Calc 92.9 Estimated GFR > 60 Random Glucose 105 Calcium 10.0 Total Bilirubin 0.8 Direct Bilirubin 0.4 AST 19 ALT 25 Alkaline Phosphatase 59 Total Protein 5.7 L Albumin 3.9 Valproic Acid 14.2 L Imaging Radiology Impressions: ITS Impressions Head CT 11/10/21 16:10 IMPRESSION: Unremarkable exam. Medications Medications Current Medications Acetaminophen (Acetaminophen 325 Mg Tablet) 650 mg PO Q6H PRN PRN Reason: Headache/Pain Mild Scale (1-3) Last Admin: 11/13/21 20:44 Dose: 650 mg Al Hydroxide/Mg Hydroxide (Magnesium Hydrox/Alum Hydrox 30 Ml Oral.Susp) 30 ml PO Q6H PRN PRN Reason: Heartburn/Nausea Aspirin (Aspirin Enteric Coated 81 Mg Tablet.) 81 mg PO DAILY [facility] Last Admin: 11/16/21 08:23 Dose: 81 mg Atorvastatin Calcium (Atorvastatin Calcium 40 Mg Tablet) 40 mg PO BEDTIME [facility] Last Admin: 11/15/21 19:28 Dose: 40 mg Carvedilol (Carvedilol 6.25 Mg Tablet) 6.25 mg PO BID [facility]; Protocol Last Admin: 11/16/21 08:23 Dose: 6.25 mg Divalproex Sodium (Divalproex Sodium 250 Mg Tablet.) 250 mg PO TID [facility] Last Admin: 11/16/21 08:22 Dose: 250 mg Haloperidol (Haloperidol 5 Mg Tablet) 5 mg PO BID PRN PRN Reason: agitation, psychosis Last Admin: 11/09/21 21:03 Dose: 5 mg Hydrochlorothiazide (Hydrochlorothiazide 25 Mg Tablet) 25 mg PO DAILY [facility] Last Admin: 11/16/21 08:23 Dose: 25 mg Hydroxyzine HCl (Hydroxyzine Hcl 25 Mg Tablet) 25 mg PO BEDTIME PRN PRN Reason: Anxiety Losartan Potassium (Losartan Potassium 50 Mg Tablet) 100 mg PO DAILY [facility]; Protocol Last Admin: 11/16/21 08:22 Dose: 100 mg Magnesium Hydroxide (Milk Of Magnesia 30 Ml Oral.Susp) 30 ml PO DAILY PRN PRN Reason: Constipation Last Admin: 11/07/21 09:07 Dose: 30 ml Olanzapine (Olanzapine 10 Mg Tablet) 20 mg PO BEDTIME [facility] Last Admin: 11/15/21 19:28 Dose: 20 mg Ondansetron HCl (Ondansetron Odt 4 Mg Tab.Rapdis) 4 mg TRANSLINGU Q8H PRN PRN Reason: nausea Last Admin: 11/04/21 20:24 Dose: 4 mg Polyethylene Glycol (Polyethylene Glycol 3350 17 Gm Powd.Pack) 17 gm PO BEDTIME [facility] Last Admin: 11/15/21 19:34 Dose: Not Given Simethicone (Simethicone 80 Mg Tab.Chew) 80 mg PO QIDWMHS PRN PRN Reason: gas relief Last Admin: 11/16/21 09:41 Dose: 80 mg Trazodone HCl (Trazodone Hcl 50 Mg Tablet) 50 mg PO BEDTIME PRN PRN Reason: Insomnia Allergies Allergies Allergy/AdvReac Type Severity Reaction Status Date / Time No Known Allergies Allergy Verified 11/03/21 16:21 Assessment & Plan Assessment & Plan (1) Routine medical exam: Status: Acute Code(s): Z00.00 - Encounter for general adult medical examination without abnormal findings Plan 71 [facility] He is a poor historian in regards to his chronic medical diagnosis. At this time, would continue his baseline meds and check routine labs if not done so already. Otherwise, appears to be medically stable. Will sign off. Please reconsult PRN, Plan 1. Increase Zyprexaup to 20 mg p.o. q.h.s. to target psychosis and mood lability. It was increased last Tuesday. 2. Gather collateral information. 3. Start Depakote 250 mg po tid. 4. Bloodwork for Tuesday came back within normal limits I spent __20____ minutes with the patient and/or on the patient floor today, greater than?50% of which was spent counseling/coordinating care. Reason for contiued inpatient stay Substantial Risk for: inability to function, rapid decompensation and med/psych decompensation
[2021-11-16 21:45] VITALS: BP 100/60; PULSE 95; TEMP 36.4; O2SAT 97
[2021-11-16] MEDS: OLANZapine 10 MG TABLET 20 MG PO (21:53)
[2021-11-16] MEDS: Divalproex Sodium 250 MG TABLET.DR 750 MG PO (21:53)
[2021-11-16] MEDS: Atorvastatin Calcium 40 MG TABLET PO (21:54)
[2021-11-16] MEDS: Acetaminophen 325 MG TABLET 650 MG PO (22:00)
[2021-11-16] MEDS: polyethylene glycoL 3350 17 GM POWD.PACK PO (22:04)
[2021-11-17 07:00] VITALS: BP 125/57; PULSE 78; RESP 14; TEMP 36.3; O2SAT 99
[2021-11-17] MEDS: Losartan Potassium 50 MG TABLET 100 MG PO (08:49)
[2021-11-17] MEDS: Aspirin Enteric Coated 81 MG TABLET.DR PO (08:49)
[2021-11-17] MEDS: hydroCHLOROthiazide 25 MG TABLET PO (08:49)
[2021-11-17] MEDS: carvediloL 6.25 MG TABLET PO ×2 (08:49→20:11)
[2021-11-17 10:27] LABS: COVID-19 Test Negative (Negative); IDNOW Serial# 55D5AD1C
--- NOTE | 2021-11-17 13:17 | P.PNPSI_ITS ---
Subjective Subjective Date of Service: 11/17/21 Reason For Visit: Bipolar disorder, anxiety disorder Subjective Notes: Conditional Voluntary Interim History: The nursing staff reported that the patient had defecated in the shower in has pieces of feces all over his body. The patient needed help from the staff took a nap and he was and where of this fact. He remains grandiose and irritable at times but easily redirectable. On interview the patient reports that he is doing great and he slept fairly well he is not feeling over-sedated with the change of medications at night. Mental Status Exam Mental Status Exam Patient Appearance: Well Grooomed Patient Orientation: Person and Situation Level of Consciousness: Awake Patient Behavior: Cooperative Mood Description: Calm Affect Description: Labile Patient Cognition Impaired: Yes Ability to Follow Directions: Fair Speech Pattern: Clear Memory Description: Immediate Impaired and Recent Impaired Delusions: Paranoid Ideation and Grandiose Thought Process: Illogical and Distracted Thought Content: positive for [place], positive for Circumstantial and positive for Poverty of Content Judgement: Poor Diagnostics Vital Signs (24Hr): Vital Signs - 24 hr 11/16/21 21:45 11/17/21 07:00 Temperature 97.6 F 97.4 F Pulse Rate 95 78 Respiratory Rate 14 Blood Pressure 100/60 125/57 L Pulse Oximetry 97 99 Oxygen Delivery Method Room Air Room Air BMI result Body Mass Index 26.7 Labs Results: 11/16/21 07:45 11/16/21 07:45 Labs: Laboratory Results - last 48 hr 11/16/21 11/16/21 11/16/21 07:45 07:45 07:45 WBC 4.5 L RBC 3.69 L Hgb 11.7 L Hct 34.2 L MCV 92.7 MCH 31.7 MCHC 34.2 RDW 13.1 Plt Count 158 L MPV 10.0 Immature Gran % (Auto) 0.4 Neut % (Auto) 63.1 Lymph % (Auto) 25.9 [place] % (Auto) 6.6 Eos % (Auto) 3.3 Baso % (Auto) 0.7 Lymph # (Auto) 1.2 [place] # (Auto) 0.3 Eos # (Auto) 0.2 Baso # (Auto) 0.0 Abs Immat Gran (auto) 0.02 Absolute Neuts (auto) 2.9 Absolute Nucleated RBC 0.000 Nucleated RBC % (auto) 0.0 Sodium 131 L Potassium 3.8 Chloride 96 Carbon Dioxide 32 H Anion Gap 7 L BUN 16 Creatinine 0.80 Estim Creat Clear Calc 92.9 Estimated GFR > 60 Random Glucose 105 Calcium 10.0 Total Bilirubin 0.8 Direct Bilirubin 0.4 AST 19 ALT 25 Alkaline Phosphatase 59 Total Protein 5.7 L Albumin 3.9 Valproic Acid 14.2 L COVID-19 ([facility]) COVID-19 Clin Com 11/17/21 09:30 WBC RBC Hgb Hct MCV MCH MCHC RDW Plt Count MPV Immature Gran % (Auto) Neut % (Auto) Lymph % (Auto) [place] % (Auto) Eos % (Auto) Baso % (Auto) Lymph # (Auto) [place] # (Auto) Eos # (Auto) Baso # (Auto) Abs Immat Gran (auto) Absolute Neuts (auto) Absolute Nucleated RBC Nucleated RBC % (auto) Sodium Potassium Chloride Carbon Dioxide Anion Gap BUN Creatinine Estim Creat Clear Calc Estimated GFR Random Glucose Calcium Total Bilirubin Direct Bilirubin AST ALT Alkaline Phosphatase Total Protein Albumin Valproic Acid COVID-19 ([facility]) Negative COVID-19 Clin Com See Note Imaging Radiology Impressions: ITS Impressions Head CT 11/10/21 16:10 IMPRESSION: Unremarkable exam. Medications Medications Current Medications Acetaminophen (Acetaminophen 325 Mg Tablet) 650 mg PO Q6H PRN PRN Reason: Headache/Pain Mild Scale (1-3) Last Admin: 11/16/21 22:00 Dose: 650 mg Al Hydroxide/Mg Hydroxide (Magnesium Hydrox/Alum Hydrox 30 Ml Oral.Susp) 30 ml PO Q6H PRN PRN Reason: Heartburn/Nausea Aspirin (Aspirin Enteric Coated 81 Mg Tablet.) 81 mg PO DAILY [facility] Last Admin: 11/17/21 08:49 Dose: 81 mg Atorvastatin Calcium (Atorvastatin Calcium 40 Mg Tablet) 40 mg PO BEDTIME [facility] Last Admin: 11/16/21 21:54 Dose: 40 mg Carvedilol (Carvedilol 6.25 Mg Tablet) 6.25 mg PO BID [facility]; Protocol Last Admin: 11/17/21 08:49 Dose: 6.25 mg Divalproex Sodium (Divalproex Sodium 250 Mg Tablet.) 750 mg PO BEDTIME [facility] Last Admin: 11/16/21 21:53 Dose: 750 mg Haloperidol (Haloperidol 5 Mg Tablet) 5 mg PO BID PRN PRN Reason: agitation, psychosis Last Admin: 11/09/21 21:03 Dose: 5 mg Hydrochlorothiazide (Hydrochlorothiazide 25 Mg Tablet) 25 mg PO DAILY [facility] Last Admin: 11/17/21 08:49 Dose: 25 mg Hydroxyzine HCl (Hydroxyzine Hcl 25 Mg Tablet) 25 mg PO BEDTIME PRN PRN Reason: Anxiety Losartan Potassium (Losartan Potassium 50 Mg Tablet) 100 mg PO DAILY [facility]; Protocol Last Admin: 11/17/21 08:49 Dose: 100 mg Magnesium Hydroxide (Milk Of Magnesia 30 Ml Oral.Susp) 30 ml PO DAILY PRN PRN Reason: Constipation Last Admin: 11/07/21 09:07 Dose: 30 ml Olanzapine (Olanzapine 10 Mg Tablet) 20 mg PO BEDTIME [facility] Last Admin: 11/16/21 21:53 Dose: 20 mg Ondansetron HCl (Ondansetron Odt 4 Mg Tab.Rapdis) 4 mg TRANSLINGU Q8H PRN PRN Reason: nausea Last Admin: 11/04/21 20:24 Dose: 4 mg Polyethylene Glycol (Polyethylene Glycol 3350 17 Gm Powd.Pack) 17 gm PO BEDTIME [facility] Last Admin: 11/16/21 22:04 Dose: 17 gm Simethicone (Simethicone 80 Mg Tab.Chew) 80 mg PO QIDWMHS PRN PRN Reason: gas relief Last Admin: 11/16/21 22:03 Dose: 80 mg Trazodone HCl (Trazodone Hcl 50 Mg Tablet) 50 mg PO BEDTIME PRN PRN Reason: Insomnia Allergies Allergies Allergy/AdvReac Type Severity Reaction Status Date / Time No Known Allergies Allergy Verified 11/03/21 16:21 Assessment & Plan Assessment & Plan (1) Routine medical exam: Status: Acute Code(s): Z00.00 - Encounter for general adult medical examination without abnormal findings Plan 71 yo M admitted to [facility]. He is a poor historian in regards to his chronic medical diagnosis. At this time, would continue his baseline meds and check routine labs if not done so already. Otherwise, appears to be medically stable. Will sign off. Please reconsult PRN, Plan 1. Increase Zyprexaup to 20 mg p.o. q.h.s. to target psychosis and mood lability. It was increased last Tuesday. 2. Gather collateral information. 3. Start Depakote 250 mg po tid, later changed to hs 4. Bloodwork for Tuesday morning came back within normal limits I spent __20____ minutes with the patient and/or on the patient floor today, greater than?50% of which was spent counseling/coordinating care. Reason for contiued inpatient stay Substantial Risk for: inability to function, rapid decompensation and med/psych decompensation
[2021-11-17 18:00] VITALS: BP 114/56; PULSE 81; RESP 16; TEMP 37.1; O2SAT 99
[2021-11-17] MEDS: Divalproex Sodium 250 MG TABLET.DR 750 MG PO (20:09)
[2021-11-17] MEDS: polyethylene glycoL 3350 17 GM POWD.PACK PO (20:10)
[2021-11-17] MEDS: hydrOXYzine HCL 25 MG TABLET PO (20:10)
[2021-11-17] MEDS: OLANZapine 10 MG TABLET 20 MG PO (20:10)
[2021-11-17] MEDS: Atorvastatin Calcium 40 MG TABLET PO (20:11)
[2021-11-18 07:30] VITALS: BP 126/64; PULSE 75; RESP 16; TEMP 36.6; O2SAT 98
[2021-11-18] MEDS: carvediloL 6.25 MG TABLET PO ×2 (08:18→21:15)
[2021-11-18] MEDS: Aspirin Enteric Coated 81 MG TABLET.DR PO (08:18)
[2021-11-18] MEDS: hydroCHLOROthiazide 25 MG TABLET PO (08:18)
[2021-11-18] MEDS: Losartan Potassium 50 MG TABLET 100 MG PO (08:19)
--- NOTE | 2021-11-18 11:56 | HO.PSYCHPN ---
Subjective Subjective Date of Service: 11/18/21 Reason For Visit: Bipolar disorder, anxiety disorder Subjective Notes: Conditional Voluntary Interim History: The nursing staff reported the patient remains grandiose is stating that he is going to buy mihir cars to all the staff. The staff reported a good night sleep and he is slightly less intrusive. On interview the patient denies new symptoms he wants to get discharged as soon as possible and he is aware of the hearing pretty soon for his Section 7 and 8. He remains manic with psychotic symptoms Mental Status Exam Mental Status Exam Patient Appearance: Well Grooomed Patient Orientation: Person and Situation Level of Consciousness: Awake Patient Behavior: Cooperative Mood Description: Calm Affect Description: Labile Patient Cognition Impaired: Yes Ability to Follow Directions: Good Speech Pattern: Clear Hallucinations: None Delusions: Paranoid Ideation and Grandiose Thought Process: Illogical and Distracted Thought Content: positive for [place] and positive for Poverty of Content Judgement: Fair Diagnostics Vital Signs (24Hr): Vital Signs - 24 hr 11/17/21 18:00 11/18/21 07:30 Temperature 98.8 F 97.8 F Pulse Rate 81 75 Respiratory Rate 16 16 Blood Pressure 114/56 L 126/64 Pulse Oximetry 99 98 Oxygen Delivery Method Room Air Room Air BMI result Body Mass Index 26.7 Labs Results: 11/16/21 07:45 11/16/21 07:45 Labs: Laboratory Results - last 48 hr 11/17/21 09:30 COVID-19 ([facility]) Negative COVID-19 Clin Com See Note Imaging Radiology Impressions: ITS Impressions Head CT 11/10/21 16:10 IMPRESSION: Unremarkable exam. Medications Medications Current Medications Acetaminophen (Acetaminophen 325 Mg Tablet) 650 mg PO Q6H PRN PRN Reason: Headache/Pain Mild Scale (1-3) Last Admin: 11/16/21 22:00 Dose: 650 mg Al Hydroxide/Mg Hydroxide (Magnesium Hydrox/Alum Hydrox 30 Ml Oral.Susp) 30 ml PO Q6H PRN PRN Reason: Heartburn/Nausea Aspirin (Aspirin Enteric Coated 81 Mg Tablet.) 81 mg PO DAILY [facility] Last Admin: 11/18/21 08:18 Dose: 81 mg Atorvastatin Calcium (Atorvastatin Calcium 40 Mg Tablet) 40 mg PO BEDTIME [facility] Last Admin: 11/17/21 20:11 Dose: 40 mg Carvedilol (Carvedilol 6.25 Mg Tablet) 6.25 mg PO BID [facility]; Protocol Last Admin: 11/18/21 08:18 Dose: 6.25 mg Divalproex Sodium (Divalproex Sodium 500 Mg Tablet.Dr) 1,000 mg PO BEDTIME [facility] Haloperidol (Haloperidol 5 Mg Tablet) 5 mg PO BID PRN PRN Reason: agitation, psychosis Last Admin: 11/09/21 21:03 Dose: 5 mg Hydrochlorothiazide (Hydrochlorothiazide 25 Mg Tablet) 25 mg PO DAILY [facility] Last Admin: 11/18/21 08:18 Dose: 25 mg Hydroxyzine HCl (Hydroxyzine Hcl 25 Mg Tablet) 25 mg PO BEDTIME PRN PRN Reason: Anxiety Last Admin: 11/17/21 20:10 Dose: 25 mg Losartan Potassium (Losartan Potassium 50 Mg Tablet) 100 mg PO DAILY [facility]; Protocol Last Admin: 11/18/21 08:19 Dose: 100 mg Magnesium Hydroxide (Milk Of Magnesia 30 Ml Oral.Susp) 30 ml PO DAILY PRN PRN Reason: Constipation Last Admin: 11/07/21 09:07 Dose: 30 ml Olanzapine (Olanzapine 10 Mg Tablet) 20 mg PO BEDTIME [facility] Last Admin: 11/17/21 20:10 Dose: 20 mg Ondansetron HCl (Ondansetron Odt 4 Mg Tab.Rapdis) 4 mg TRANSLINGU Q8H PRN PRN Reason: nausea Last Admin: 11/04/21 20:24 Dose: 4 mg Polyethylene Glycol (Polyethylene Glycol 3350 17 Gm Powd.Pack) 17 gm PO BEDTIME [facility] Last Admin: 11/17/21 20:10 Dose: 17 gm Simethicone (Simethicone 80 Mg Tab.Chew) 80 mg PO QIDWMHS PRN PRN Reason: gas relief Last Admin: 11/16/21 22:03 Dose: 80 mg Trazodone HCl (Trazodone Hcl 50 Mg Tablet) 50 mg PO BEDTIME PRN PRN Reason: Insomnia Allergies Allergies Allergy/AdvReac Type Severity Reaction Status Date / Time No Known Allergies Allergy Verified 11/03/21 16:21 Assessment & Plan Assessment & Plan (1) Routine medical exam: Status: Acute Code(s): Z00.00 - Encounter for general adult medical examination without abnormal findings Plan 71 [facility] M [facility] He is a poor historian in regards to his chronic medical diagnosis. At this time, would continue his baseline meds and check routine labs if not done so already. Otherwise, appears to be medically stable. Will sign off. Please reconsult PRN, Plan 1. Keep Zyprexa up to 20 mg p.o. q.h.s. to target psychosis and mood lability. 2. Gather collateral information. 3. Changet Depakote up to 1000 mg PO qhs, starting on 11/18. 4. Bloodwork for next Tuesday now that he is complliant with Depakote. I spent __20____ minutes with the patient and/or on the patient floor today, greater than?50% of which was spent counseling/coordinating care. Reason for contiued inpatient stay Substantial Risk for: inability to function, rapid decompensation and med/psych decompensation
[2021-11-18 18:00] VITALS: BP 146/65; PULSE 80; RESP 20; TEMP 37.2; O2SAT 97
[2021-11-18] MEDS: polyethylene glycoL 3350 17 GM POWD.PACK PO (21:13)
[2021-11-18] MEDS: Divalproex Sodium 500 MG TABLET.DR 1000 MG PO (21:13)
[2021-11-18] MEDS: OLANZapine 10 MG TABLET 20 MG PO (21:14)
[2021-11-18] MEDS: Atorvastatin Calcium 40 MG TABLET PO (21:15)
[2021-11-19 06:00] VITALS: BP 132/60; PULSE 70; RESP 18; TEMP 36.4; O2SAT 99
[2021-11-19] MEDS: hydroCHLOROthiazide 25 MG TABLET PO (08:26)
[2021-11-19] MEDS: carvediloL 6.25 MG TABLET PO ×2 (08:26→21:56)
[2021-11-19] MEDS: Aspirin Enteric Coated 81 MG TABLET.DR PO (08:26)
[2021-11-19] MEDS: Losartan Potassium 50 MG TABLET 100 MG PO (08:26)
[2021-11-19 10:28] LABS: COVID-19 Test Negative (Negative); IDNOW Serial# 9DB6401D
--- NOTE | 2021-11-19 10:34 | HO.PSYCHPN ---
Subjective Subjective Date of Service: 11/19/21 Reason For Visit: Bipolar disorder, anxiety disorder Subjective Notes: Section 7, Conditional Voluntary and 3 Day Interim History: The nursing staff reported the patient remains delusional and grandiose stating that he is going to divorce his . The staff reported that the her Depakote was given last night he was slightly sedated but he was okay in the morning. COVID-19 negative. On interview the patient denies having any problems he is pleasant, cooperative but disorganized with poor short-term memory. Mental Status Exam Mental Status Exam Patient Appearance: Appropriate Patient Orientation: Person and Situation Level of Consciousness: Awake Patient Behavior: Cooperative Mood Description: Constricted Affect Description: Calm and Suspicious Patient Cognition Impaired: Yes Ability to Follow Directions: Good Speech Pattern: Clear Hallucinations: None Delusions: Paranoid Ideation and Grandiose Thought Process: Distracted and Evasive Thought Content: positive for [place], positive for Circumstantial and positive for Poverty of Content Judgement: Fair Diagnostics Vital Signs (24Hr): Vital Signs - 24 hr 11/18/21 18:00 11/19/21 06:00 Temperature 98.9 F 97.5 F Pulse Rate 80 70 Respiratory Rate 20 18 Blood Pressure 146/65 H 132/60 Pulse Oximetry 97 99 Oxygen Delivery Method Room Air Room Air BMI result Body Mass Index 26.7 Labs Results: 11/16/21 07:45 11/16/21 07:45 Labs: Laboratory Results - last 48 hr 11/19/21 09:30 COVID-19 ([facility]) Negative COVID-19 Clin Com See Note Imaging Radiology Impressions: ITS Impressions Head CT 11/10/21 16:10 IMPRESSION: Unremarkable exam. Medications Medications Current Medications Acetaminophen (Acetaminophen 325 Mg Tablet) 650 mg PO Q6H PRN PRN Reason: Headache/Pain Mild Scale (1-3) Last Admin: 11/16/21 22:00 Dose: 650 mg Al Hydroxide/Mg Hydroxide (Magnesium Hydrox/Alum Hydrox 30 Ml Oral.Susp) 30 ml PO Q6H PRN PRN Reason: Heartburn/Nausea Aspirin (Aspirin Enteric Coated 81 Mg Tablet.) 81 mg PO DAILY [facility] Last Admin: 11/19/21 08:26 Dose: 81 mg Atorvastatin Calcium (Atorvastatin Calcium 40 Mg Tablet) 40 mg PO BEDTIME [facility] Last Admin: 11/18/21 21:15 Dose: 40 mg Carvedilol (Carvedilol 6.25 Mg Tablet) 6.25 mg PO BID [facility]; Protocol Last Admin: 11/19/21 08:26 Dose: 6.25 mg Divalproex Sodium (Divalproex Sodium 500 Mg Tablet.Dr) 1,000 mg PO BEDTIME [facility] Last Admin: 11/18/21 21:13 Dose: 1,000 mg Haloperidol (Haloperidol 5 Mg Tablet) 5 mg PO BID PRN PRN Reason: agitation, psychosis Last Admin: 11/09/21 21:03 Dose: 5 mg Hydrochlorothiazide (Hydrochlorothiazide 25 Mg Tablet) 25 mg PO DAILY [facility] Last Admin: 11/19/21 08:26 Dose: 25 mg Hydroxyzine HCl (Hydroxyzine Hcl 25 Mg Tablet) 25 mg PO BEDTIME PRN PRN Reason: Anxiety Last Admin: 11/17/21 20:10 Dose: 25 mg Losartan Potassium (Losartan Potassium 50 Mg Tablet) 100 mg PO DAILY [facility]; Protocol Last Admin: 11/19/21 08:26 Dose: 100 mg Magnesium Hydroxide (Milk Of Magnesia 30 Ml Oral.Susp) 30 ml PO DAILY PRN PRN Reason: Constipation Last Admin: 11/07/21 09:07 Dose: 30 ml Olanzapine (Olanzapine 10 Mg Tablet) 20 mg PO BEDTIME [facility] Last Admin: 11/18/21 21:14 Dose: 20 mg Ondansetron HCl (Ondansetron Odt 4 Mg Tab.Rapdis) 4 mg TRANSLINGU Q8H PRN PRN Reason: nausea Last Admin: 11/04/21 20:24 Dose: 4 mg Polyethylene Glycol (Polyethylene Glycol 3350 17 Gm Powd.Pack) 17 gm PO BEDTIME [facility] Last Admin: 11/18/21 21:13 Dose: 17 gm Simethicone (Simethicone 80 Mg Tab.Chew) 80 mg PO QIDWMHS PRN PRN Reason: gas relief Last Admin: 11/16/21 22:03 Dose: 80 mg Trazodone HCl (Trazodone Hcl 50 Mg Tablet) 50 mg PO BEDTIME PRN PRN Reason: Insomnia Allergies Allergies Allergy/AdvReac Type Severity Reaction Status Date / Time No Known Allergies Allergy Verified 11/03/21 16:21 Assessment & Plan Assessment & Plan (1) Routine medical exam: Status: Acute Code(s): Z00.00 - Encounter for general adult medical examination without abnormal findings Plan 71 yo M admitted to [facility]. He is a poor historian in regards to his chronic medical diagnosis. At this time, would continue his baseline meds and check routine labs if not done so already. Otherwise, appears to be medically stable. Will sign off. Please reconsult PRN, Plan 1. Keep Zyprexa up to 20 mg p.o. q.h.s. to target psychosis and mood lability. 2. Gather collateral information. 3. Changet Depakote up to 1000 mg PO qhs, starting on 11/18. 4. Bloodwork for next Tuesday now that he is complliant with Depakote. I spent ___20___ minutes with the patient and/or on the patient floor today, greater than?50% of which was spent counseling/coordinating care. Reason for contiued inpatient stay Substantial Risk for: inability to function, rapid decompensation and med/psych decompensation
[2021-11-19 21:50] VITALS: BP 134/64; PULSE 75; RESP 14; TEMP 36.7; O2SAT 95
[2021-11-19] MEDS: Divalproex Sodium 500 MG TABLET.DR 1000 MG PO (21:56)
[2021-11-19] MEDS: Atorvastatin Calcium 40 MG TABLET PO (21:56)
[2021-11-19] MEDS: polyethylene glycoL 3350 17 GM POWD.PACK PO (21:56)
[2021-11-19] MEDS: OLANZapine 10 MG TABLET 20 MG PO (21:56)
[2021-11-20 06:00] VITALS: BP 133/64; PULSE 72; RESP 16; TEMP 36.6; O2SAT 98
[2021-11-20] MEDS: Aspirin Enteric Coated 81 MG TABLET.DR PO (07:32)
[2021-11-20] MEDS: Losartan Potassium 50 MG TABLET 100 MG PO (07:32)
[2021-11-20] MEDS: carvediloL 6.25 MG TABLET PO ×2 (07:32→20:23)
[2021-11-20] MEDS: hydroCHLOROthiazide 25 MG TABLET PO (07:33)
--- NOTE | 2021-11-20 10:17 | P.PNPSI_ITS ---
Subjective Subjective Date of Service: 11/20/21 Reason For Visit: Bipolar disorder, anxiety disorder Subjective Notes: Conditional Voluntary and 3 Day Interim History: The nursing staff reported the patient remains grandiose, stating that he is going to given away cars to the staff. Yesterday and today in the morning he has several questions regarding the criteria for inpatient level of care. He was worried about the hearing that we will have next week for Section 7 and 8 The occupational therapist reported that he participates in groups and he likes them very much. The high school social studies tutor reported that her family called asking several questions that we have already discussed regarding his prognosis and diagnosis. On interview the patient remains pleasant and cooperative but he seems slightly better with less impulsive behavior. Medication Compliance: Yes Side effects from medications: No Attending Groups: Yes Review of Systems Acute medical concerns: No Medical Review of Systems: unchanged Mental Status Exam Mental Status Exam Patient Appearance: Well Grooomed Patient Orientation: Person and Situation Level of Consciousness: Awake Patient Behavior: Cooperative Mood Description: Constricted Affect Description: Labile Patient Cognition Impaired: Yes Ability to Follow Directions: Good Speech Pattern: Clear Hallucinations: None Delusions: Grandiose Thought Process: Distracted and Evasive Thought Content: positive for [place] and positive for [place]um[place] Judgement: Fair Diagnostics Vital Signs (24Hr): Vital Signs - 24 hr 11/19/21 21:50 Temperature 98.1 F Pulse Rate 75 Respiratory Rate 14 Blood Pressure 134/64 Pulse Oximetry 95 Oxygen Delivery Method Room Air BMI result Body Mass Index 26.7 Labs Results: 11/16/21 07:45 11/16/21 07:45 Labs: Laboratory Results - last 48 hr 11/19/21 09:30 COVID-19 ([facility]) Negative COVID-19 Clin Com See Note Imaging Radiology Impressions: ITS Impressions Head CT 11/10/21 16:10 IMPRESSION: Unremarkable exam. Medications Medications Current Medications Acetaminophen (Acetaminophen 325 Mg Tablet) 650 mg PO Q6H PRN PRN Reason: Headache/Pain Mild Scale (1-3) Last Admin: 11/16/21 22:00 Dose: 650 mg Al Hydroxide/Mg Hydroxide (Magnesium Hydrox/Alum Hydrox 30 Ml Oral.Susp) 30 ml PO Q6H PRN PRN Reason: Heartburn/Nausea Aspirin (Aspirin Enteric Coated 81 Mg Tablet.) 81 mg PO DAILY [facility] Last Admin: 11/20/21 07:32 Dose: 81 mg Atorvastatin Calcium (Atorvastatin Calcium 40 Mg Tablet) 40 mg PO BEDTIME [facility] Last Admin: 11/19/21 21:56 Dose: 40 mg Carvedilol (Carvedilol 6.25 Mg Tablet) 6.25 mg PO BID [facility]; Protocol Last Admin: 11/20/21 07:32 Dose: 6.25 mg Divalproex Sodium (Divalproex Sodium 500 Mg Tablet.Dr) 1,000 mg PO BEDTIME [facility] Last Admin: 11/19/21 21:56 Dose: 1,000 mg Haloperidol (Haloperidol 5 Mg Tablet) 5 mg PO BID PRN PRN Reason: agitation, psychosis Last Admin: 11/09/21 21:03 Dose: 5 mg Hydrochlorothiazide (Hydrochlorothiazide 25 Mg Tablet) 25 mg PO DAILY [facility] Last Admin: 11/20/21 07:33 Dose: 25 mg Hydroxyzine HCl (Hydroxyzine Hcl 25 Mg Tablet) 25 mg PO BEDTIME PRN PRN Reason: Anxiety Last Admin: 11/17/21 20:10 Dose: 25 mg Losartan Potassium (Losartan Potassium 50 Mg Tablet) 100 mg PO DAILY [facility]; Protocol Last Admin: 11/20/21 07:32 Dose: 100 mg Magnesium Hydroxide (Milk Of Magnesia 30 Ml Oral.Susp) 30 ml PO DAILY PRN PRN Reason: Constipation Last Admin: 11/07/21 09:07 Dose: 30 ml Olanzapine (Olanzapine 10 Mg Tablet) 20 mg PO BEDTIME [facility] Last Admin: 11/19/21 21:56 Dose: 20 mg Ondansetron HCl (Ondansetron Odt 4 Mg Tab.Rapdis) 4 mg TRANSLINGU Q8H PRN PRN Reason: nausea Last Admin: 11/04/21 20:24 Dose: 4 mg Polyethylene Glycol (Polyethylene Glycol 3350 17 Gm Powd.Pack) 17 gm PO BEDTIME [facility] Last Admin: 11/19/21 21:56 Dose: 17 gm Simethicone (Simethicone 80 Mg Tab.Chew) 80 mg PO QIDWMHS PRN PRN Reason: gas relief Last Admin: 11/16/21 22:03 Dose: 80 mg Trazodone HCl (Trazodone Hcl 50 Mg Tablet) 50 mg PO BEDTIME PRN PRN Reason: Insomnia Allergies Allergies Allergy/AdvReac Type Severity Reaction Status Date / Time No Known Allergies Allergy Verified 11/03/21 16:21 Assessment & Plan Assessment & Plan (1) Routine medical exam: Status: Acute Code(s): Z00.00 - Encounter for general adult medical examination without abnormal findings Plan 71 yo M admitted to [facility]. He is a poor historian in regards to his chronic medical diagnosis. At this time, would continue his baseline meds and check routine labs if not done so already. Otherwise, appears to be medically stable. Will sign off. Please reconsult PRN, Plan 1. Keep Zyprexa up to 20 mg p.o. q.h.s. to target psychosis and mood lability. 2. Gather collateral information. 3. Changet Depakote up to 1000 mg PO qhs, starting on 11/18. 4. Bloodwork for next Tuesday now that he is complliant with Depakote. I spent __20____ minutes with the patient and/or on the patient floor today, gr eater than?50% of which was spent counseling/coordinating care. Reason for contiued inpatient stay Substantial Risk for: inability to function, rapid decompensation and med/psych decompensation
[2021-11-20 18:00] VITALS: BP 135/70; PULSE 80; RESP 14; TEMP 36.7; O2SAT 98
[2021-11-20] MEDS: Atorvastatin Calcium 40 MG TABLET PO (20:22)
[2021-11-20] MEDS: Divalproex Sodium 500 MG TABLET.DR 1000 MG PO (20:23)
[2021-11-20] MEDS: polyethylene glycoL 3350 17 GM POWD.PACK PO (20:23)
[2021-11-20] MEDS: OLANZapine 10 MG TABLET 20 MG PO (20:23)
[2021-11-21 06:00] VITALS: BP 146/67; PULSE 74; RESP 16; TEMP 36.9; O2SAT 99
[2021-11-21] MEDS: Aspirin Enteric Coated 81 MG TABLET.DR PO (09:03)
[2021-11-21] MEDS: carvediloL 6.25 MG TABLET PO ×2 (09:04→20:47)
[2021-11-21] MEDS: Losartan Potassium 50 MG TABLET 100 MG PO (09:04)
[2021-11-21] MEDS: hydroCHLOROthiazide 25 MG TABLET PO (09:04)
--- NOTE | 2021-11-21 15:09 | P.PNPSI_ITS ---
Subjective Subjective Date of Service: 11/21/21 Reason For Visit: Bipolar disorder, anxiety disorder Interim History: Patient friendly and warm. He says he is doing okay but the medications are given him a making him a little tired in the morning. He wonders if any adjustments can be made and typewriter assembler agrees to look at medications. Otherwise staff reports that he is less intrusive though he still is grandiose and today called a car dealership ordered 11 cars Mental Status Exam Mental Status Exam Patient Appearance: Well Grooomed Patient Orientation: Person and Situation Level of Consciousness: Awake Patient Behavior: Cooperative Mood Description: Constricted Affect Description: Labile Patient Cognition Impaired: Yes Ability to Follow Directions: Good Speech Pattern: Clear Hallucinations: None Delusions: Grandiose Thought Process: Distracted and Evasive Thought Content: positive for [place] and positive for Circumstantial Judgement: Fair Diagnostics Vital Signs (24Hr): Vital Signs - 24 hr 11/20/21 18:00 11/21/21 06:00 Temperature 98.1 F 98.4 F Pulse Rate 80 74 Respiratory Rate 14 16 Blood Pressure 135/70 146/67 H Pulse Oximetry 98 99 Oxygen Delivery Method Room Air Room Air BMI result Body Mass Index 26.7 Labs Results: 11/16/21 07:45 11/16/21 07:45 Imaging Radiology Impressions: ITS Impressions Head CT 11/10/21 16:10 IMPRESSION: Unremarkable exam. Medications Medications Current Medications Acetaminophen (Acetaminophen 325 Mg Tablet) 650 mg PO Q6H PRN PRN Reason: Headache/Pain Mild Scale (1-3) Last Admin: 11/16/21 22:00 Dose: 650 mg Al Hydroxide/Mg Hydroxide (Magnesium Hydrox/Alum Hydrox 30 Ml Oral.Susp) 30 ml PO Q6H PRN PRN Reason: Heartburn/Nausea Aspirin (Aspirin Enteric Coated 81 Mg Tablet.) 81 mg PO DAILY [facility] Last Admin: 11/21/21 09:03 Dose: 81 mg Atorvastatin Calcium (Atorvastatin Calcium 40 Mg Tablet) 40 mg PO BEDTIME [facility] Last Admin: 11/20/21 20:22 Dose: 40 mg Carvedilol (Carvedilol 6.25 Mg Tablet) 6.25 mg PO BID [facility]; Protocol Last Admin: 11/21/21 09:04 Dose: 6.25 mg Divalproex Sodium (Divalproex Sodium 500 Mg Tablet.) 1,000 mg PO BEDTIME [facility] Last Admin: 11/20/21 20:23 Dose: 1,000 mg Haloperidol (Haloperidol 5 Mg Tablet) 5 mg PO BID PRN PRN Reason: agitation, psychosis Last Admin: 11/09/21 21:03 Dose: 5 mg Hydrochlorothiazide (Hydrochlorothiazide 25 Mg Tablet) 25 mg PO DAILY [facility] Last Admin: 11/21/21 09:04 Dose: 25 mg Hydroxyzine HCl (Hydroxyzine Hcl 25 Mg Tablet) 25 mg PO BEDTIME PRN PRN Reason: Anxiety Last Admin: 11/17/21 20:10 Dose: 25 mg Losartan Potassium (Losartan Potassium 50 Mg Tablet) 100 mg PO DAILY [facility]; Protocol Last Admin: 11/21/21 09:04 Dose: 100 mg Magnesium Hydroxide (Milk Of Magnesia 30 Ml Oral.Susp) 30 ml PO DAILY PRN PRN Reason: Constipation Last Admin: 11/07/21 09:07 Dose: 30 ml Olanzapine (Olanzapine 10 Mg Tablet) 20 mg PO BEDTIME [facility] Last Admin: 11/20/21 20:23 Dose: 20 mg Ondansetron HCl (Ondansetron Odt 4 Mg Tab.Rapdis) 4 mg TRANSLINGU Q8H PRN PRN Reason: nausea Last Admin: 11/04/21 20:24 Dose: 4 mg Polyethylene Glycol (Polyethylene Glycol 3350 17 Gm Powd.Pack) 17 gm PO BEDTIME [facility] Last Admin: 11/20/21 20:23 Dose: 17 gm Simethicone (Simethicone 80 Mg Tab.Chew) 80 mg PO QIDWMHS PRN PRN Reason: gas relief Last Admin: 11/16/21 22:03 Dose: 80 mg Trazodone HCl (Trazodone Hcl 50 Mg Tablet) 50 mg PO BEDTIME PRN PRN Reason: Insomnia Allergies Allergies Allergy/AdvReac Type Severity Reaction Status Date / Time No Known Allergies Allergy Verified 11/03/21 16:21 Assessment & Plan Assessment & Plan (1) Bipolar disorder: Status: Acute Code(s): F31.9 - Bipolar disorder, unspecified (2) STEFAN (generalized anxiety disorder): Status: Acute Code(s): F41.1 - Generalized anxiety disorder Plan 71 [facility] M [facility]. He is a poor historian in regards to his chronic medical diagnosis. At this time, would continue his baseline meds and check routine labs if not done so already. Otherwise, appears to be medically stable. 11/21 staff reports patient is less intrusive, more calm; complains of some daytime sedation, however no medication changes to be made as they were all currently dosed in the evening time Plan 1. Keep Zyprexa up to 20 mg p.o. q.h.s. to target psychosis and mood lability.? 2. Gather collateral information.? 3. Changet Depakote up to 1000 mg PO qhs, starting on 11/18. 4. Bloodwork for next Tuesday now that he is complliant with Depakote. I spent minutes with the patient and/or on the patient floor today, greater than?50% of which was spent counseling/coordinating care. Patient educated on: medication risk/benefits Informed Consent: understands Reason for contiued inpatient stay Substantial Risk for: rapid decompensation
[2021-11-21] MEDS: hydrOXYzine HCL 25 MG TABLET PO (20:48)
[2021-11-21] MEDS: OLANZapine 10 MG TABLET 20 MG PO (20:48)
[2021-11-21] MEDS: Atorvastatin Calcium 40 MG TABLET PO (20:48)
[2021-11-21] MEDS: Divalproex Sodium 500 MG TABLET.DR 1000 MG PO (20:48)
[2021-11-21] MEDS: polyethylene glycoL 3350 17 GM POWD.PACK PO (20:50)
[2021-11-21 20:54] VITALS: BP 155/72; PULSE 80; RESP 16; TEMP 36.6; O2SAT 98
[2021-11-22 07:50] VITALS: BP 136/67; PULSE 68; RESP 16; TEMP 36.4; O2SAT 98
[2021-11-22] MEDS: Losartan Potassium 50 MG TABLET 100 MG PO (08:43)
[2021-11-22] MEDS: Aspirin Enteric Coated 81 MG TABLET.DR PO (08:43)
[2021-11-22] MEDS: carvediloL 6.25 MG TABLET PO ×2 (08:43→20:21)
[2021-11-22] MEDS: hydroCHLOROthiazide 25 MG TABLET PO (08:44)
[2021-11-22 18:00] VITALS: BP 149/68; PULSE 80; RESP 18; TEMP 36.9; O2SAT 99
--- NOTE | 2021-11-22 18:31 | P.PNPSI_ITS ---
Subjective Subjective Date of Service: 11/22/21 Reason For Visit: Bipolar disorder, anxiety disorder Interim History: Patient resting comfortably in bed. Staff reports Patient remains calm, less intrusive Mental Status Exam Mental Status Exam Patient Appearance: Well Grooomed Patient Orientation: Person and Situation Level of Consciousness: Drowsy Patient Behavior: Cooperative Mood Description: Withdrawn Affect Description: Constricted Patient Cognition Impaired: Yes Ability to Follow Directions: Good Speech Pattern: Clear Hallucinations: None Delusions: Not Present Thought Process: Distracted and Slowed Thinking Thought Content: positive for [place] Judgement: Fair Diagnostics Vital Signs (24Hr): Vital Signs - 24 hr 11/21/21 20:54 11/22/21 07:50 Temperature 97.8 F 97.6 F Pulse Rate 80 68 Respiratory Rate 16 16 Blood Pressure 155/72 H 136/67 Pulse Oximetry 98 98 Oxygen Delivery Method Room Air Room Air BMI result Body Mass Index 26.7 Labs Results: 11/16/21 07:45 11/25/21 16:33 Imaging Radiology Impressions: ITS Impressions Head CT 11/10/21 16:10 IMPRESSION: Unremarkable exam. Medications Medications Current Medications Acetaminophen (Acetaminophen 325 Mg Tablet) 650 mg PO Q6H PRN PRN Reason: Headache/Pain Mild Scale (1-3) Last Admin: 11/16/21 22:00 Dose: 650 mg Al Hydroxide/Mg Hydroxide (Magnesium Hydrox/Alum Hydrox 30 Ml Oral.Susp) 30 ml PO Q6H PRN PRN Reason: Heartburn/Nausea Aspirin (Aspirin Enteric Coated 81 Mg Tablet.) 81 mg PO DAILY [facility] Last Admin: 11/22/21 08:43 Dose: 81 mg Atorvastatin Calcium (Atorvastatin Calcium 40 Mg Tablet) 40 mg PO BEDTIME [facility] Last Admin: 11/21/21 20:48 Dose: 40 mg Carvedilol (Carvedilol 6.25 Mg Tablet) 6.25 mg PO BID [facility]; Protocol Last Admin: 11/22/21 08:43 Dose: 6.25 mg Divalproex Sodium (Divalproex Sodium 500 Mg Tablet.) 1,000 mg PO BEDTIME [facility] Last Admin: 11/21/21 20:48 Dose: 1,000 mg Haloperidol (Haloperidol 5 Mg Tablet) 5 mg PO BID PRN PRN Reason: agitation, psychosis Last Admin: 11/09/21 21:03 Dose: 5 mg Hydrochlorothiazide (Hydrochlorothiazide 25 Mg Tablet) 25 mg PO DAILY [facility] Last Admin: 11/22/21 08:44 Dose: 25 mg Hydroxyzine HCl (Hydroxyzine Hcl 25 Mg Tablet) 25 mg PO BEDTIME PRN PRN Reason: Anxiety Last Admin: 11/21/21 20:48 Dose: 25 mg Losartan Potassium (Losartan Potassium 50 Mg Tablet) 100 mg PO DAILY [facility]; Protocol Last Admin: 11/22/21 08:43 Dose: 100 mg Magnesium Hydroxide (Milk Of Magnesia 30 Ml Oral.Susp) 30 ml PO DAILY PRN PRN Reason: Constipation Last Admin: 11/07/21 09:07 Dose: 30 ml Olanzapine (Olanzapine 10 Mg Tablet) 20 mg PO BEDTIME [facility] Last Admin: 11/21/21 20:48 Dose: 20 mg Ondansetron HCl (Ondansetron Odt 4 Mg Tab.Rapdis) 4 mg TRANSLINGU Q8H PRN PRN Reason: nausea Last Admin: 11/04/21 20:24 Dose: 4 mg Polyethylene Glycol (Polyethylene Glycol 3350 17 Gm Powd.Pack) 17 gm PO BEDTIME [facility] Last Admin: 11/21/21 20:50 Dose: 17 gm Simethicone (Simethicone 80 Mg Tab.Chew) 80 mg PO QIDWMHS PRN PRN Reason: gas relief Last Admin: 11/16/21 22:03 Dose: 80 mg Trazodone HCl (Trazodone Hcl 50 Mg Tablet) 50 mg PO BEDTIME PRN PRN Reason: Insomnia Allergies Allergies Allergy/AdvReac Type Severity Reaction Status Date / Time No Known Allergies Allergy Verified 11/03/21 16:21 Assessment & Plan Assessment & Plan (1) Bipolar disorder: Status: Acute Code(s): F31.9 - Bipolar disorder, unspecified (2) STEFAN (generalized anxiety disorder): Status: Acute Code(s): F41.1 - Generalized anxiety disorder Plan 71 yo M admitted to [facility]. He is a poor historian in regards to his chronic medical diagnosis. At this time, would continue his baseline meds and check routine labs if not done so already. Otherwise, appears to be medically stable. 11/21 staff reports patient is less intrusive, more calm; complains of some daytime sedation, however no medication changes to be made as they were all currently dosed in the evening time 11/22 continue current treatment plan Plan 1. Keep Zyprexa up to 20 mg p.o. q.h.s. to target psychosis and mood lability.? 2. Gather collateral information.? 3. Changet Depakote up to 1000 mg PO qhs, starting on 11/18. 4. Bloodwork for next Tuesday now that he is complliant with Depakote. I spent minutes with the patient and/or on the patient floor today, greater than?50% of which was spent counseling/coordinating care. Reason for contiued inpatient stay Substantial Risk for: inability to function
[2021-11-22] MEDS: OLANZapine 10 MG TABLET 20 MG PO (20:20)
[2021-11-22] MEDS: Atorvastatin Calcium 40 MG TABLET PO (20:20)
[2021-11-22] MEDS: Divalproex Sodium 500 MG TABLET.DR 1000 MG PO (20:21)
[2021-11-22] MEDS: polyethylene glycoL 3350 17 GM POWD.PACK PO (20:42)
[2021-11-23 06:00] VITALS: BP 144/68; PULSE 77; RESP 18; TEMP 36.4; O2SAT 98
[2021-11-23] MEDS: Aspirin Enteric Coated 81 MG TABLET.DR PO (07:58)
[2021-11-23] MEDS: carvediloL 6.25 MG TABLET PO ×2 (07:59→21:58)
[2021-11-23] MEDS: Losartan Potassium 50 MG TABLET 100 MG PO (07:59)
[2021-11-23] MEDS: hydroCHLOROthiazide 25 MG TABLET PO (07:59)
[2021-11-23 09:12] LABS: Valproate 72.5 mcg/mL (50.0-100.0)
--- NOTE | 2021-11-23 13:58 | P.PNPSI_ITS ---
Subjective Subjective Date of Service: 11/23/21 Reason For Visit: Bipolar disorder, anxiety disorder Subjective Notes: Section 7, Section 8, Conditional Voluntary and 3 Day Interim History: The nursing staff reported that the patient has been sexually inappropriate with peers over the weekend. Also he was grandiose, stating that he is going to by cars to the staff. On interview the patient reports that he feels tired that he is doing fine and he adamantly denies psychotic symptoms or grandiosity. His Depakote level is on a therapeutic level 72.9. He complains of some pedal edema Mental Status Exam Mental Status Exam Patient Appearance: Appropriate Patient Orientation: Person and Situation Level of Consciousness: Awake Patient Behavior: Appropriate Mood Description: Withdrawn Affect Description: Labile Patient Cognition Impaired: Yes Ability to Follow Directions: Good Speech Pattern: Clear Hallucinations: None Delusions: Grandiose Thought Process: Distracted Thought Content: positive for Circum[place] Judgement: Fair Diagnostics Vital Signs (24Hr): Vital Signs - 24 hr 11/22/21 18:00 11/23/21 06:00 Temperature 98.4 F 97.6 F Pulse Rate 80 77 Respiratory Rate 18 18 Blood Pressure 149/68 H 144/68 H Pulse Oximetry 99 98 Oxygen Delivery Method Room Air Room Air BMI result Body Mass Index 26.7 Labs Results: 11/16/21 07:45 11/16/21 07:45 Labs: Laboratory Results - last 48 hr 11/23/21 08:37 Valproic Acid 72.5 Imaging Radiology Impressions: ITS Impressions Head CT 11/10/21 16:10 IMPRESSION: Unremarkable exam. Medications Medications Current Medications Acetaminophen (Acetaminophen 325 Mg Tablet) 650 mg PO Q6H PRN PRN Reason: Headache/Pain Mild Scale (1-3) Last Admin: 11/16/21 22:00 Dose: 650 mg Al Hydroxide/Mg Hydroxide (Magnesium Hydrox/Alum Hydrox 30 Ml Oral.Susp) 30 ml PO Q6H PRN PRN Reason: Heartburn/Nausea Aspirin (Aspirin Enteric Coated 81 Mg Tablet.) 81 mg PO DAILY [facility] Last Admin: 11/23/21 07:58 Dose: 81 mg Atorvastatin Calcium (Atorvastatin Calcium 40 Mg Tablet) 40 mg PO BEDTIME [facility] Last Admin: 11/22/21 20:20 Dose: 40 mg Carvedilol (Carvedilol 6.25 Mg Tablet) 6.25 mg PO BID [facility]; Protocol Last Admin: 11/23/21 07:59 Dose: 6.25 mg Divalproex Sodium (Divalproex Sodium 500 Mg Tablet.Dr) 1,000 mg PO BEDTIME [facility] Last Admin: 11/22/21 20:21 Dose: 1,000 mg Haloperidol (Haloperidol 5 Mg Tablet) 5 mg PO BID PRN PRN Reason: agitation, psychosis Last Admin: 11/09/21 21:03 Dose: 5 mg Hydrochlorothiazide (Hydrochlorothiazide 25 Mg Tablet) 25 mg PO DAILY [facility] Last Admin: 11/23/21 07:59 Dose: 25 mg Hydroxyzine HCl (Hydroxyzine Hcl 25 Mg Tablet) 25 mg PO BEDTIME PRN PRN Reason: Anxiety Last Admin: 11/21/21 20:48 Dose: 25 mg Losartan Potassium (Losartan Potassium 50 Mg Tablet) 100 mg PO DAILY [facility]; Protocol Last Admin: 11/23/21 07:59 Dose: 100 mg Magnesium Hydroxide (Milk Of Magnesia 30 Ml Oral.Susp) 30 ml PO DAILY PRN PRN Reason: Constipation Last Admin: 11/07/21 09:07 Dose: 30 ml Olanzapine (Olanzapine 10 Mg Tablet) 20 mg PO BEDTIME [facility] Last Admin: 11/22/21 20:20 Dose: 20 mg Ondansetron HCl (Ondansetron Odt 4 Mg Tab.Rapdis) 4 mg TRANSLINGU Q8H PRN PRN Reason: nausea Last Admin: 11/04/21 20:24 Dose: 4 mg Polyethylene Glycol (Polyethylene Glycol 3350 17 Gm Powd.Pack) 17 gm PO BEDTIME [facility] Last Admin: 11/22/21 20:42 Dose: 17 gm Simethicone (Simethicone 80 Mg Tab.Chew) 80 mg PO QIDWMHS PRN PRN Reason: gas relief Last Admin: 11/16/21 22:03 Dose: 80 mg Trazodone HCl (Trazodone Hcl 50 Mg Tablet) 50 mg PO BEDTIME PRN PRN Reason: Insomnia Allergies Allergies Allergy/AdvReac Type Severity Reaction Status Date / Time No Known Allergies Allergy Verified 11/03/21 16:21 Assessment & Plan Assessment & Plan (1) Bipolar disorder: Status: Acute Code(s): F31.9 - Bipolar disorder, unspecified (2) STEFAN (generalized anxiety disorder): Status: Acute Code(s): F41.1 - Generalized anxiety disorder Plan 71 yo M admitted to [facility]. He is a poor historian in regards to his chronic medical diagnosis. At this time, would continue his baseline meds and check routine labs if not done so already. Otherwise, appears to be medically stable. 11/21 staff reports patient is less intrusive, more calm; complains of some daytime sedation, however no medication changes to be made as they were all currently dosed in the evening time Plan 1. Keep Zyprexa up to 20 mg p.o. q.h.s. to target psychosis and mood lability.? 2. Gather collateral information.? 3. Changet Depakote up to 1000 mg PO qhs, starting on 11/18. 4. Bloodwork for next Tuesday now that he is complliant with Depakote. his De pakote level is in the therapeutic range at this moment I spent ___20___ minutes with the patient and/or on the patient floor today, greater than?50% of which was spent counseling/coordinating care. Reason for contiued inpatient stay Substantial Risk for: inability to function, rapid decompensation and med/psych decompensation
[2021-11-23] MEDS: polyethylene glycoL 3350 17 GM POWD.PACK PO (21:56)
[2021-11-23] MEDS: Divalproex Sodium 500 MG TABLET.DR 1000 MG PO (21:58)
[2021-11-23] MEDS: OLANZapine 10 MG TABLET 20 MG PO (21:58)
[2021-11-23] MEDS: Atorvastatin Calcium 40 MG TABLET PO (21:58)
[2021-11-23 22:03] VITALS: BP 126/71; PULSE 76; RESP 18; TEMP 37.1; O2SAT 98
[2021-11-24] MEDS: Magnesium Hydrox/Alum Hydrox 30 ML ORAL.SUSP PO (00:30)
[2021-11-24 06:00] VITALS: BP 143/66; PULSE 68; RESP 18; TEMP 37.1; O2SAT 98
[2021-11-24] MEDS: hydroCHLOROthiazide 25 MG TABLET PO (08:13)
[2021-11-24] MEDS: Aspirin Enteric Coated 81 MG TABLET.DR PO (08:13)
[2021-11-24] MEDS: carvediloL 6.25 MG TABLET PO ×2 (08:13→20:45)
[2021-11-24] MEDS: Losartan Potassium 50 MG TABLET 100 MG PO (08:13)
--- NOTE | 2021-11-24 13:42 | HO.PSYCHPN ---
Subjective Subjective Date of Service: 11/24/21 Reason For Visit: Bipolar disorder, anxiety disorder Subjective Notes: Conditional Voluntary Interim History: The nursing staff reported the patient is less grandiose, easily redirectable but still quite intrusive in groups. On interview the patient denies new symptoms he feels fine and he is aware that we will have a hearing today at two o'clock for Section seven. Mental Status Exam Mental Status Exam Patient Appearance: Well Grooomed Patient Orientation: Person and Situation Level of Consciousness: Awake Patient Behavior: Cooperative Mood Description: Withdrawn Affect Description: Labile Patient Cognition Impaired: Yes Ability to Follow Directions: Good Speech Pattern: Clear Hallucinations: None Delusions: Grandiose Thought Process: Distracted and Evasive Thought Content: positive for [place] and positive for Circumstantial Judgement: Fair Diagnostics Vital Signs (24Hr): Vital Signs - 24 hr 11/23/21 22:03 11/24/21 06:00 Temperature 98.8 F 98.7 F Pulse Rate 76 68 Respiratory Rate 18 18 Blood Pressure 126/71 143/66 H Pulse Oximetry 98 98 Oxygen Delivery Method Room Air Room Air BMI result Body Mass Index 26.7 Labs Results: 11/16/21 07:45 11/16/21 07:45 Labs: Laboratory Results - last 48 hr 11/23/21 08:37 Valproic Acid 72.5 Imaging Radiology Impressions: ITS Impressions Head CT 11/10/21 16:10 IMPRESSION: Unremarkable exam. Medications Medications Current Medications Acetaminophen (Acetaminophen 325 Mg Tablet) 650 mg PO Q6H PRN PRN Reason: Headache/Pain Mild Scale (1-3) Last Admin: 11/16/21 22:00 Dose: 650 mg Al Hydroxide/Mg Hydroxide (Magnesium Hydrox/Alum Hydrox 30 Ml Oral.Susp) 30 ml PO Q6H PRN PRN Reason: Heartburn/Nausea Last Admin: 11/24/21 00:30 Dose: 30 ml Aspirin (Aspirin Enteric Coated 81 Mg Tablet.Dr) 81 mg PO DAILY [facility] Last Admin: 11/24/21 08:13 Dose: 81 mg Atorvastatin Calcium (Atorvastatin Calcium 40 Mg Tablet) 40 mg PO BEDTIME [facility] Last Admin: 11/23/21 21:58 Dose: 40 mg Carvedilol (Carvedilol 6.25 Mg Tablet) 6.25 mg PO BID [facility]; Protocol Last Admin: 11/24/21 08:13 Dose: 6.25 mg Divalproex Sodium (Divalproex Sodium 500 Mg Tablet.Dr) 1,000 mg PO BEDTIME [facility] Last Admin: 11/23/21 21:58 Dose: 1,000 mg Haloperidol (Haloperidol 5 Mg Tablet) 5 mg PO BID PRN PRN Reason: agitation, psychosis Last Admin: 11/09/21 21:03 Dose: 5 mg Hydrochlorothiazide (Hydrochlorothiazide 25 Mg Tablet) 25 mg PO DAILY [facility] Last Admin: 11/24/21 08:13 Dose: 25 mg Hydroxyzine HCl (Hydroxyzine Hcl 25 Mg Tablet) 25 mg PO BEDTIME PRN PRN Reason: Anxiety Last Admin: 11/21/21 20:48 Dose: 25 mg Losartan Potassium (Losartan Potassium 50 Mg Tablet) 100 mg PO DAILY [facility]; Protocol Last Admin: 11/24/21 08:13 Dose: 100 mg Magnesium Hydroxide (Milk Of Magnesia 30 Ml Oral.Susp) 30 ml PO DAILY PRN PRN Reason: Constipation Last Admin: 11/07/21 09:07 Dose: 30 ml Olanzapine (Olanzapine 10 Mg Tablet) 20 mg PO BEDTIME [facility] Last Admin: 11/23/21 21:58 Dose: 20 mg Ondansetron HCl (Ondansetron Odt 4 Mg Tab.Rapdis) 4 mg TRANSLINGU Q8H PRN PRN Reason: nausea Last Admin: 11/04/21 20:24 Dose: 4 mg Polyethylene Glycol (Polyethylene Glycol 3350 17 Gm Powd.Pack) 17 gm PO BEDTIME [facility] Last Admin: 11/23/21 21:56 Dose: 17 gm Simethicone (Simethicone 80 Mg Tab.Chew) 80 mg PO QIDWMHS PRN PRN Reason: gas relief Last Admin: 11/16/21 22:03 Dose: 80 mg Trazodone HCl (Trazodone Hcl 50 Mg Tablet) 50 mg PO BEDTIME PRN PRN Reason: Insomnia Allergies Allergies Allergy/AdvReac Type Severity Reaction Status Date / Time No Known Allergies Allergy Verified 11/03/21 16:21 Assessment & Plan Assessment & Plan (1) Bipolar disorder: Status: Acute Code(s): F31.9 - Bipolar disorder, unspecified (2) STEFAN (generalized anxiety disorder): Status: Acute Code(s): F41.1 - Generalized anxiety disorder Plan 71 yo M admitted to [facility]. He is a poor historian in regards to his chronic medical diagnosis. At this time, would continue his baseline meds and check routine labs if not done so already. Otherwise, appears to be medically stable. 11/21 staff reports patient is less intrusive, more calm; complains of some daytime sedation, however no medication changes to be made as they were all currently dosed in the evening time Plan 1. Keep Zyprexa up to 20 mg p.o. q.h.s. to target psychosis and mood lability.? 2. Gather collateral information.? 3. Changet Depakote up to 1000 mg PO qhs, starting on 11/18. 4. Bloodwork for next Tuesday now that he is complliant with Depakote. his Depakote level is in the therapeutic range at this moment. 5. Court hearing today for Section seven I spent ___20___ minutes with the patient and/or on the patient floor today, greater than?50% of which was spent counseling/coordinating care. Informed Consent: further education needed Reason for contiued inpatient stay Substantial Risk for: inability to function, rapid decompensation and med/psych decompensation
[2021-11-24 18:00] VITALS: BP 131/60; PULSE 84; TEMP 37.1; O2SAT 97
[2021-11-24] MEDS: OLANZapine 10 MG TABLET 20 MG PO (20:45)
[2021-11-24] MEDS: polyethylene glycoL 3350 17 GM POWD.PACK PO (20:45)
[2021-11-24] MEDS: Divalproex Sodium 500 MG TABLET.DR 1000 MG PO (20:45)
[2021-11-24] MEDS: Atorvastatin Calcium 40 MG TABLET PO (20:45)
[2021-11-24] MEDS: Simethicone 80 MG TAB.CHEW PO (20:50)
[2021-11-25 08:10] VITALS: BP 128/75; PULSE 77; RESP 19; TEMP 37.2; O2SAT 96
[2021-11-25] MEDS: Losartan Potassium 50 MG TABLET 100 MG PO (08:40)
[2021-11-25] MEDS: carvediloL 6.25 MG TABLET PO ×2 (08:40→20:46)
[2021-11-25] MEDS: Aspirin Enteric Coated 81 MG TABLET.DR PO (08:40)
[2021-11-25] MEDS: hydroCHLOROthiazide 25 MG TABLET PO (08:40)
--- NOTE | 2021-11-25 15:12 | P.PNPSI_ITS ---
Subjective Subjective Date of Service: 11/25/21 Reason For Visit: Bipolar disorder, anxiety disorder Subjective Notes: Section 7, Section 8 and Conditional Voluntary Interim History: The nursing staff reported the patient slept well, he has been fully compliant with medications. He presented with edema 2+. On interview the patient denies new symptoms he feels okay besides daily month his limbs. [place] test scored 17/30 Mental Status Exam Mental Status Exam Patient Appearance: Well Grooomed Patient Orientation: Person and Situation Level of Consciousness: Awake Patient Behavior: Cooperative Mood Description: Withdrawn Affect Description: Constricted Patient Cognition Impaired: Yes Ability to Follow Directions: Good Speech Pattern: Clear Hallucinations: None Delusions: Not Present Thought Process: Distracted and Slowed Thinking Thought Content: positive for [place] Judgement: Fair Diagnostics Vital Signs (24Hr): Vital Signs - 24 hr 11/24/21 18:00 11/25/21 08:10 Temperature 98.7 F 99 F Pulse Rate 84 77 Respiratory Rate 19 Blood Pressure 131/60 128/75 Pulse Oximetry 97 96 Oxygen Delivery Method Room Air Room Air BMI result Body Mass Index 26.7 Labs Results: 11/16/21 07:45 11/16/21 07:45 Imaging Radiology Impressions: ITS Impressions Head CT 11/10/21 16:10 IMPRESSION: Unremarkable exam. Medications Medications Current Medications Acetaminophen (Acetaminophen 325 Mg Tablet) 650 mg PO Q6H PRN PRN Reason: Headache/Pain Mild Scale (1-3) Last Admin: 11/16/21 22:00 Dose: 650 mg Al Hydroxide/Mg Hydroxide (Magnesium Hydrox/Alum Hydrox 30 Ml Oral.Susp) 30 ml PO Q6H PRN PRN Reason: Heartburn/Nausea Last Admin: 11/24/21 00:30 Dose: 30 ml Aspirin (Aspirin Enteric Coated 81 Mg Tablet.) 81 mg PO DAILY [facility] Last Admin: 11/25/21 08:40 Dose: 81 mg Atorvastatin Calcium (Atorvastatin Calcium 40 Mg Tablet) 40 mg PO BEDTIME [facility] Last Admin: 11/24/21 20:45 Dose: 40 mg Carvedilol (Carvedilol 6.25 Mg Tablet) 6.25 mg PO BID [facility]; Protocol Last Admin: 11/25/21 08:40 Dose: 6.25 mg Divalproex Sodium (Divalproex Sodium 500 Mg Tablet.) 1,000 mg PO BEDTIME [facility] Last Admin: 11/24/21 20:45 Dose: 1,000 mg Haloperidol (Haloperidol 5 Mg Tablet) 5 mg PO BID PRN PRN Reason: agitation, psychosis Last Admin: 11/09/21 21:03 Dose: 5 mg Hydrochlorothiazide (Hydrochlorothiazide 25 Mg Tablet) 25 mg PO DAILY [facility] Last Admin: 11/25/21 08:40 Dose: 25 mg Hydroxyzine HCl (Hydroxyzine Hcl 25 Mg Tablet) 25 mg PO BEDTIME PRN PRN Reason: Anxiety Last Admin: 11/21/21 20:48 Dose: 25 mg Losartan Potassium (Losartan Potassium 50 Mg Tablet) 100 mg PO DAILY [facility]; Protocol Last Admin: 11/25/21 08:40 Dose: 100 mg Magnesium Hydroxide (Milk Of Magnesia 30 Ml Oral.Susp) 30 ml PO DAILY PRN PRN Reason: Constipation Last Admin: 11/07/21 09:07 Dose: 30 ml Olanzapine (Olanzapine 10 Mg Tablet) 20 mg PO BEDTIME [facility] Last Admin: 11/24/21 20:45 Dose: 20 mg Ondansetron HCl (Ondansetron Odt 4 Mg Tab.Rapdis) 4 mg TRANSLINGU Q8H PRN PRN Reason: nausea Last Admin: 11/04/21 20:24 Dose: 4 mg Polyethylene Glycol (Polyethylene Glycol 3350 17 Gm Powd.Pack) 17 gm PO BEDTIME [facility] Last Admin: 11/24/21 20:45 Dose: 17 gm Simethicone (Simethicone 80 Mg Tab.Chew) 80 mg PO QIDWMHS PRN PRN Reason: gas relief Last Admin: 11/24/21 20:50 Dose: 80 mg Trazodone HCl (Trazodone Hcl 50 Mg Tablet) 50 mg PO BEDTIME PRN PRN Reason: Insomnia Allergies Allergies Allergy/AdvReac Type Severity Reaction Status Date / Time No Known Allergies Allergy Verified 11/03/21 16:21 Assessment & Plan Assessment & Plan (1) Bipolar disorder: Status: Acute Code(s): F31.9 - Bipolar disorder, unspecified (2) STEFAN (generalized anxiety disorder): Status: Acute Code(s): F41.1 - Generalized anxiety disorder Plan 71 [facility] M [facility]. He is a poor historian in regards to his chronic medical diagnosis. At this time, would continue his baseline meds and check routine labs if not done so already. Otherwise, appears to be medically stable. 11/21 staff reports patient is less intrusive, more calm; complains of some daytime sedation, however no medication changes to be made as they were all currently dosed in the evening time Plan 1. Keep Zyprexa up to 20 mg p.o. q.h.s. to target psychosis and mood lability.? 2. Gather collateral information.? 3. [place] Depakote up to 1000 mg PO qhs, starting on 11/18. 4. Bloodwork for next tomorrow now that he is complliant with Depakote. his Depakote level is in the therapeutic range at this moment. I spent __20____ minutes with the patient and/or on the patient floor today, greater than?50% of which was spent counseling/coordinating care. Reason for contiued inpatient stay Substantial Risk for: inability to function, rapid decompensation and med/psych decompensation
--- NOTE | 2021-11-25 16:04 | P.PNIM_ITS ---
Subjective Subjective Date of Service: 11/25/21 Interval History: Seen and evaluated report worsening edema in LE over last 2 weeks no SOB, dyspnea or PND No other reported issues Review of Systems Review of Systems: Yes all other systems are reviewed and are negative Physical Exam Vital Signs: Vital Signs: Last Vital Signs Temp 99 F 11/25/21 08:10 Pulse 77 11/25/21 08:10 Resp 19 11/25/21 08:10 BP 128/75 11/25/21 08:10 Pulse Ox 96 11/25/21 08:10 O2 Del Method 11/25/21 08:10 FiO2 99 11/08/21 18:00 BMI result Body Mass Index 26.7 Const: Other: Constitutional : Alert, oriented, not in distress Neck : Normal inspection, Supple Cardiovascular : RRR, no JVP, +1 bilateral lower extremity edema Respiratory : fair bilateral air entry, no crackles, wheezes or rhonchi Gastrointestinal: soft, lax, Normal bowel sounds, Non tender Skin : Warm, Dry Neurological : Alert & oriented x3, No focal deficit , CN 2-12 within normal Objective Data Active Medications Acetaminophen (Acetaminophen 325 Mg Tablet) 650 mg PO Q6H PRN PRN Reason: Headache/Pain Mild Scale (1-3) Last Admin: 11/16/21 22:00 Dose: 650 mg Documented By: LASHELL Al Hydroxide/Mg Hydroxide (Magnesium Hydrox/Alum Hydrox 30 Ml Oral.Susp) 30 ml PO Q6H PRN PRN Reason: Heartburn/Nausea Last Admin: 11/24/21 00:30 Dose: 30 ml Documented By: KELSY Aspirin (Aspirin Enteric Coated 81 Mg Tablet.) 81 mg PO DAILY [facility] Last Admin: 11/25/21 08:40 Dose: 81 mg Documented By: ANDERSON Atorvastatin Calcium (Atorvastatin Calcium 40 Mg Tablet) 40 mg PO BEDTIME [facility] Last Admin: 11/24/21 20:45 Dose: 40 mg Documented By: JEANMARIE Carvedilol (Carvedilol 6.25 Mg Tablet) 6.25 mg PO BID [facility]; Protocol Last Admin: 11/25/21 08:40 Dose: 6.25 mg Documented By: ANDERSON Divalproex Sodium (Divalproex Sodium 500 Mg Tablet.) 1,000 mg PO BEDTIME [facility] Last Admin: 11/24/21 20:45 Dose: 1,000 mg Documented By: JEANMARIE Haloperidol (Haloperidol 5 Mg Tablet) 5 mg PO BID PRN PRN Reason: agitation, psychosis Last Admin: 11/09/21 21:03 Dose: 5 mg Documented By: VICTOR HUGO Hydrochlorothiazide (Hydrochlorothiazide 25 Mg Tablet) 25 mg PO DAILY [facility] Last Admin: 11/25/21 08:40 Dose: 25 mg Documented By: ANDERSON Hydroxyzine HCl (Hydroxyzine Hcl 25 Mg Tablet) 25 mg PO BEDTIME PRN PRN Reason: Anxiety Last Admin: 11/21/21 20:48 Dose: 25 mg Documented By: MORRINL Losartan Potassium (Losartan Potassium 50 Mg Tablet) 100 mg PO DAILY [facility]; Protocol Last Admin: 11/25/21 08:40 Dose: 100 mg Documented By: ANDERSON Magnesium Hydroxide (Milk Of Magnesia 30 Ml Oral.Susp) 30 ml PO DAILY PRN PRN Reason: Constipation Last Admin: 11/07/21 09:07 Dose: 30 ml Documented By: SHAILESH Olanzapine (Olanzapine 10 Mg Tablet) 20 mg PO BEDTIME [facility] Last Admin: 11/24/21 20:45 Dose: 20 mg Documented By: JEANMARIE Ondansetron HCl (Ondansetron Odt 4 Mg Tab.Rapdis) 4 mg TRANSLINGU Q8H PRN PRN Reason: nausea Last Admin: 11/04/21 20:24 Dose: 4 mg Documented By: VICTOR HUGO Polyethylene Glycol (Polyethylene Glycol 3350 17 Gm Powd.Pack) 17 gm PO BEDTIME [facility] Last Admin: 11/24/21 20:45 Dose: 17 gm Documented By: JEANMARIE Simethicone (Simethicone 80 Mg Tab.Chew) 80 mg PO QIDWMHS PRN PRN Reason: gas relief Last Admin: 11/24/21 20:50 Dose: 80 mg Documented By: JEANMARIE Trazodone HCl (Trazodone Hcl 50 Mg Tablet) 50 mg PO BEDTIME PRN PRN Reason: Insomnia Labs CBC & Chem 7: 11/16/21 07:45 11/16/21 07:45 Assessment and Plan (1) Edema, lower extremity: Status: Acute Plan A 71 y\o male with PMH of a history of HTN, DM, CAD, CVA with worsening LE edema. Lower extremities edema Likely a result of regular diet and increase sodium intake ECHO as OP Start Lasix 40 mg PO Hold HCT check BNP, BMP change diet to Low sodium diet Thanks for the consult please contact hospitalist team with any further questions Quality Stroke Does the patient have a stroke diagnosis?: No VTE Prior VTE?: No VTE Risk Level:: Medical - low VTE Device Contraindication: Patient Refused VTE Drug Contraindication: Patient Refused
[2021-11-25 16:52] LABS: Anion Gap 8 (12-20); Blood Urea Nitrogen 15 mg/dL (9-16); Calcium 9.6 mg/dL (8.4-10.2); Carbon Dioxide 31 mmol/L (22-29); Chloride 94 mmol/L (96-108); Creatinine Clr Calc Pharmacy 90.6; Estimated Glomerular Filt Rate > 60; Glucose Random 100 mg/dL (60-115); Potassium 4.5 mmol/L (3.3-5.1); Sodium 128 mmol/L (135-145)
[2021-11-25 16:53] VITALS: BP 148/65; PULSE 79; RESP 15; TEMP 36.8; O2SAT 97
[2021-11-25] MEDS: Furosemide 40 MG TABLET PO (17:11)
[2021-11-25] MEDS: Atorvastatin Calcium 40 MG TABLET PO (20:45)
[2021-11-25] MEDS: Divalproex Sodium 500 MG TABLET.DR 1000 MG PO (20:46)
[2021-11-25] MEDS: OLANZapine 10 MG TABLET 20 MG PO (20:46)
[2021-11-25] MEDS: polyethylene glycoL 3350 17 GM POWD.PACK PO (20:46)
[2021-11-26 06:00] VITALS: BP 121/58; PULSE 72; RESP 16; TEMP 36.7; O2SAT 96
[2021-11-26 08:39] LABS: Anion Gap 9 (12-20); Blood Urea Nitrogen 14 mg/dL (9-16); Calcium 9.5 mg/dL (8.4-10.2); Carbon Dioxide 28 mmol/L (22-29); Chloride 95 mmol/L (96-108); Creatinine Clr Calc Pharmacy 91.7; Estimated Glomerular Filt Rate > 60; Glucose Random 104 mg/dL (60-115); Potassium 4.2 mmol/L (3.3-5.1); Sodium 128 mmol/L (135-145)
[2021-11-26 08:43] LABS: B Type Natriuretic Peptide 17 pg/mL (<100)
[2021-11-26 08:50] LABS: Valproate 88.8 mcg/mL (50.0-100.0)
[2021-11-26] MEDS: Aspirin Enteric Coated 81 MG TABLET.DR PO (09:21)
[2021-11-26] MEDS: Furosemide 40 MG TABLET PO (09:21)
[2021-11-26] MEDS: carvediloL 6.25 MG TABLET PO ×2 (09:21→21:34)
[2021-11-26] MEDS: Losartan Potassium 50 MG TABLET 100 MG PO (09:21)
--- NOTE | 2021-11-26 15:15 | P.PNPSI_ITS ---
Subjective Subjective Date of Service: 11/26/21 Reason For Visit: Bipolar disorder, anxiety disorder Subjective Notes: Conditional Voluntary Interim History: The nursing staff reported the patient has been fully compliant with treatment, he remains pleasant and cooperative but with sporadic restlessness. On interview the patient denies new symptoms he feels okay he denies side effects. Today his Depakote level was 88 but no evidence of over-sedation. Mr. That the hospital is reviewed he has oedema and changed his diet with low sodium. Today we review his [place] test of yesterday and he scored still low 17/30. Mental Status Exam Mental Status Exam Patient Appearance: Well Grooomed Patient Orientation: Person and Situation Level of Consciousness: Awake Patient Behavior: Cooperative Mood Description: Calm Affect Description: Constricted Patient Cognition Impaired: Yes Ability to Follow Directions: Good Speech Pattern: Clear Hallucinations: None Delusions: Not Present Thought Process: Distracted Thought Content: positive for [place] and positive for Poverty of Content Judgement: Fair Diagnostics Vital Signs (24Hr): Vital Signs - 24 hr 11/25/21 16:53 11/26/21 06:00 Temperature 98.2 F 98.0 F Pulse Rate 79 72 Respiratory Rate 15 16 Blood Pressure 148/65 H 121/58 L Pulse Oximetry 97 96 Oxygen Delivery Method Room Air Room Air BMI result Body Mass Index 26.7 Labs Results: 11/16/21 07:45 11/26/21 08:04 Labs: Laboratory Results - last 48 hr 11/25/21 11/26/21 11/26/21 16:33 08:04 08:04 Sodium 128 L 128 L Potassium 4.5 4.2 Chloride 94 L 95 L Carbon Dioxide 31 H 28 Anion Gap 8 L 9 L BUN 15 14 Creatinine 0.82 0.81 Estim Creat Clear Calc 90.6 91.7 Estimated GFR > 60 > 60 Random Glucose 100 104 Calcium 9.6 9.5 B-Natriuretic Peptide 17 Valproic Acid 88.8 Imaging Radiology Impressions: ITS Impressions Head CT 11/10/21 16:10 IMPRESSION: Unremarkable exam. Medications Medications Current Medications Acetaminophen (Acetaminophen 325 Mg Tablet) 650 mg PO Q6H PRN PRN Reason: Headache/Pain Mild Scale (1-3) Last Admin: 11/16/21 22:00 Dose: 650 mg Al Hydroxide/Mg Hydroxide (Magnesium Hydrox/Alum Hydrox 30 Ml Oral.Susp) 30 ml PO Q6H PRN PRN Reason: Heartburn/Nausea Last Admin: 11/24/21 00:30 Dose: 30 ml Aspirin (Aspirin Enteric Coated 81 Mg Tablet.Dr) 81 mg PO DAILY [facility] Last Admin: 11/26/21 09:21 Dose: 81 mg Atorvastatin Calcium (Atorvastatin Calcium 40 Mg Tablet) 40 mg PO BEDTIME [facility] Last Admin: 11/25/21 20:45 Dose: 40 mg Carvedilol (Carvedilol 6.25 Mg Tablet) 6.25 mg PO BID [facility]; Protocol Last Admin: 11/26/21 09:21 Dose: 6.25 mg Divalproex Sodium (Divalproex Sodium 500 Mg Tablet.) 1,000 mg PO BEDTIME [facility] Last Admin: 11/25/21 20:46 Dose: 1,000 mg Furosemide (Furosemide 40 Mg Tablet) 40 mg PO DAILY [facility]; Protocol Last Admin: 11/26/21 09:21 Dose: 40 mg Haloperidol (Haloperidol 5 Mg Tablet) 5 mg PO BID PRN PRN Reason: agitation, psychosis Last Admin: 11/09/21 21:03 Dose: 5 mg Hydroxyzine HCl (Hydroxyzine Hcl 25 Mg Tablet) 25 mg PO BEDTIME PRN PRN Reason: Anxiety Last Admin: 11/21/21 20:48 Dose: 25 mg Losartan Potassium (Losartan Potassium 50 Mg Tablet) 100 mg PO DAILY [facility]; Protocol Last Admin: 11/26/21 09:21 Dose: 100 mg Magnesium Hydroxide (Milk Of Magnesia 30 Ml Oral.Susp) 30 ml PO DAILY PRN PRN Reason: Constipation Last Admin: 11/07/21 09:07 Dose: 30 ml Olanzapine (Olanzapine 10 Mg Tablet) 20 mg PO BEDTIME [facility] Last Admin: 11/25/21 20:46 Dose: 20 mg Ondansetron HCl (Ondansetron Odt 4 Mg Tab.Rapdis) 4 mg TRANSLINGU Q8H PRN PRN Reason: nausea Last Admin: 11/04/21 20:24 Dose: 4 mg Polyethylene Glycol (Polyethylene Glycol 3350 17 Gm Powd.Pack) 17 gm PO BEDTIME [facility] Last Admin: 11/25/21 20:46 Dose: 17 gm Senna (Sennosides 8.6 Mg Tablet) 8.6 mg PO BID [facility] Simethicone (Simethicone 80 Mg Tab.Chew) 80 mg PO QIDWMHS PRN PRN Reason: gas relief Last Admin: 11/24/21 20:50 Dose: 80 mg Trazodone HCl (Trazodone Hcl 50 Mg Tablet) 50 mg PO BEDTIME PRN PRN Reason: Insomnia Allergies Allergies Allergy/AdvReac Type Severity Reaction Status Date / Time No Known Allergies Allergy Verified 11/03/21 16:21 Assessment & Plan Assessment & Plan (1) Bipolar disorder: Status: Acute Code(s): F31.9 - Bipolar disorder, unspecified (2) STEFAN (generalized anxiety disorder): Status: Acute Code(s): F41.1 - Generalized anxiety disorder Plan 71 yo M admitted to [facility]. He is a poor historian in regards to his chronic medical diagnosis. At this time, would continue his baseline meds and check routine labs if not done so already. Otherwise, appears to be medically stable. 11/21 staff reports patient is less intrusive, more calm; complains of some daytime sedation, however no medication changes to be made as they were all currently dosed in the evening time 11/22 continue current treatment plan Plan 1. Keep Zyprexa up to 20 mg p.o. q.h.s. to target psychosis and mood lability.? 2. Gather collateral information.? 3. Keep Depakote up to 1000 mg PO qhs, starting on 11/18. 4. Start working for safe discharge plan. I spent minutes with the patient and/or on the patient floor today, g reater than?50% of which was spent counseling/coordinating care. Reason for contiued inpatient stay Substantial Risk for: inability to function, rapid decompensation and med/psych decompensation
[2021-11-26 20:38] VITALS: BP 115/59; PULSE 77; RESP 16; TEMP 36.8; O2SAT 97
[2021-11-26] MEDS: OLANZapine 10 MG TABLET 20 MG PO (21:33)
[2021-11-26] MEDS: Atorvastatin Calcium 40 MG TABLET PO (21:33)
[2021-11-26] MEDS: polyethylene glycoL 3350 17 GM POWD.PACK PO (21:33)
[2021-11-26] MEDS: Divalproex Sodium 500 MG TABLET.DR 1000 MG PO (21:34)
[2021-11-26] MEDS: Sennosides 8.6 MG TABLET PO (21:34)
[2021-11-27 07:00] VITALS: BP 126/58; PULSE 70; RESP 16; TEMP 36.8; O2SAT 96
[2021-11-27] MEDS: Losartan Potassium 50 MG TABLET 100 MG PO (09:48)
[2021-11-27] MEDS: carvediloL 6.25 MG TABLET PO ×2 (09:48→20:23)
[2021-11-27] MEDS: Aspirin Enteric Coated 81 MG TABLET.DR PO (09:48)
[2021-11-27] MEDS: Sennosides 8.6 MG TABLET PO ×2 (09:48→20:23)
[2021-11-27] MEDS: Furosemide 40 MG TABLET PO (09:48)
--- NOTE | 2021-11-27 11:12 | HO.PSYCHPN ---
Subjective Subjective Date of Service: 11/27/21 Reason For Visit: Bipolar disorder, anxiety disorder Subjective Notes: Conditional Voluntary Interim History: The nursing staff reported the patient has been less grandiose with a better affect. He has participate in groups and he looks much more oriented no evidence of alex or psychosis at this moment. The occupational therapist reported that he has court on his [place] . The staff has reported that his called asking for his status and she was concerned and doubtful knowing that he was doing very well. The case management social worker reported that we will schedule a family meeting next week for discharge planning. On interview the patient denies new symptoms he states that he is doing fine. Mental Status Exam Mental Status Exam Patient Appearance: Well Grooomed Patient Orientation: Person Level of Consciousness: Awake Patient Behavior: Cooperative Mood Description: Constricted Affect Description: Calm Patient Cognition Impaired: Yes Ability to Follow Directions: Good Speech Pattern: Clear Hallucinations: None Delusions: Not Present Thought Process: Goal Oriented Thought Content: positive for Circumstantial Judgement: Fair Diagnostics Vital Signs (24Hr): Vital Signs - 24 hr 11/26/21 20:38 11/27/21 07:00 Temperature 98.2 F 98.3 F Pulse Rate 77 70 Respiratory Rate 16 16 Blood Pressure 115/59 L 126/58 L Pulse Oximetry 97 96 Oxygen Delivery Method Room Air Room Air BMI result Body Mass Index 26.7 Labs Results: 11/16/21 07:45 11/26/21 08:04 Labs: Laboratory Results - last 48 hr 11/25/21 11/26/21 11/26/21 16:33 08:04 08:04 Sodium 128 L 128 L Potassium 4.5 4.2 Chloride 94 L 95 L Carbon Dioxide 31 H 28 Anion Gap 8 L 9 L BUN 15 14 Creatinine 0.82 0.81 Estim Creat Clear Calc 90.6 91.7 Estimated GFR > 60 > 60 Random Glucose 100 104 Calcium 9.6 9.5 B-Natriuretic Peptide 17 Valproic Acid 88.8 Imaging Radiology Impressions: ITS Impressions Head CT 11/10/21 16:10 IMPRESSION: Unremarkable exam. Medications Medications Current Medications Acetaminophen (Acetaminophen 325 Mg Tablet) 650 mg PO Q6H PRN PRN Reason: Headache/Pain Mild Scale (1-3) Last Admin: 11/16/21 22:00 Dose: 650 mg Al Hydroxide/Mg Hydroxide (Magnesium Hydrox/Alum Hydrox 30 Ml Oral.Susp) 30 ml PO Q6H PRN PRN Reason: Heartburn/Nausea Last Admin: 11/24/21 00:30 Dose: 30 ml Aspirin (Aspirin Enteric Coated 81 Mg Tablet.) 81 mg PO DAILY [facility] Last Admin: 11/27/21 09:48 Dose: 81 mg Atorvastatin Calcium (Atorvastatin Calcium 40 Mg Tablet) 40 mg PO BEDTIME [facility] Last Admin: 11/26/21 21:33 Dose: 40 mg Carvedilol (Carvedilol 6.25 Mg Tablet) 6.25 mg PO BID [facility]; Protocol Last Admin: 11/27/21 09:48 Dose: 6.25 mg Divalproex Sodium (Divalproex Sodium 500 Mg Tablet.) 1,000 mg PO BEDTIME [facility] Last Admin: 11/26/21 21:34 Dose: 1,000 mg Furosemide (Furosemide 40 Mg Tablet) 40 mg PO DAILY [facility]; Protocol Last Admin: 11/27/21 09:48 Dose: 40 mg Haloperidol (Haloperidol 5 Mg Tablet) 5 mg PO BID PRN PRN Reason: agitation, psychosis Last Admin: 11/09/21 21:03 Dose: 5 mg Hydroxyzine HCl (Hydroxyzine Hcl 25 Mg Tablet) 25 mg PO BEDTIME PRN PRN Reason: Anxiety Last Admin: 11/21/21 20:48 Dose: 25 mg Losartan Potassium (Losartan Potassium 50 Mg Tablet) 100 mg PO DAILY [facility]; Protocol Last Admin: 11/27/21 09:48 Dose: 100 mg Magnesium Hydroxide (Milk Of Magnesia 30 Ml Oral.Susp) 30 ml PO DAILY PRN PRN Reason: Constipation Last Admin: 11/07/21 09:07 Dose: 30 ml Olanzapine (Olanzapine 10 Mg Tablet) 20 mg PO BEDTIME [facility] Last Admin: 11/26/21 21:33 Dose: 20 mg Ondansetron HCl (Ondansetron Odt 4 Mg Tab.Rapdis) 4 mg TRANSLINGU Q8H PRN PRN Reason: nausea Last Admin: 11/04/21 20:24 Dose: 4 mg Polyethylene Glycol (Polyethylene Glycol 3350 17 Gm Powd.Pack) 17 gm PO BEDTIME [facility] Last Admin: 11/26/21 21:33 Dose: 17 gm Senna (Sennosides 8.6 Mg Tablet) 8.6 mg PO BID [facility] Last Admin: 11/27/21 09:48 Dose: 8.6 mg Simethicone (Simethicone 80 Mg Tab.Chew) 80 mg PO QIDWMHS PRN PRN Reason: gas relief Last Admin: 11/24/21 20:50 Dose: 80 mg Trazodone HCl (Trazodone Hcl 50 Mg Tablet) 50 mg PO BEDTIME PRN PRN Reason: Insomnia Allergies Allergies Allergy/AdvReac Type Severity Reaction Status Date / Time No Known Allergies Allergy Verified 11/03/21 16:21 Assessment & Plan Assessment & Plan (1) Bipolar disorder: Status: Acute Code(s): F31.9 - Bipolar disorder, unspecified (2) STEFAN (generalized anxiety disorder): Status: Acute Code(s): F41.1 - Generalized anxiety disorder Plan 71 yo M admitted to [facility]. He is a poor historian in regards to his chronic medical diagnosis. At this time, would continue his baseline meds and check routine labs if not done so already. Otherwise, appears to be medically stable. 11/21 staff reports patient is less intrusive, more calm; complains of some daytime sedation, however no medication changes to be made as they were all currently dosed in the evening time 11/22 continue current treatment plan Plan 1. Keep Zyprexa up to 20 mg p.o. q.h.s. to target psychosis and mood lability.? 2. Gather collateral information.? 3. Keep Depakote up to 1000 mg PO qhs, starting on 11/18. 4. Start working for safe discharge plan. 5. Depakote level and regular blood work for Tuesday. I spent __20____ minutes with the patient and/or on the patient floor today, greater than?50% of which was spent counseling/coordinating care. Reason for contiued inpatient stay Substantial Risk for: inability to function, rapid decompensation and med/psych decompensation
[2021-11-27 18:00] VITALS: BP 139/63; PULSE 75; RESP 16; TEMP 36.1; O2SAT 98
[2021-11-27 20:02] VITALS: BP 139/63; PULSE 75; RESP 16; TEMP 36.1; O2SAT 98
[2021-11-27] MEDS: Atorvastatin Calcium 40 MG TABLET PO (20:22)
[2021-11-27] MEDS: OLANZapine 10 MG TABLET 20 MG PO (20:22)
[2021-11-27] MEDS: Divalproex Sodium 500 MG TABLET.DR 1000 MG PO (20:23)
[2021-11-27] MEDS: polyethylene glycoL 3350 17 GM POWD.PACK PO (20:23)
[2021-11-28 07:00] VITALS: BP 132/80; PULSE 79; RESP 17; TEMP 37.1; O2SAT 97
[2021-11-28] MEDS: Aspirin Enteric Coated 81 MG TABLET.DR PO (08:58)
[2021-11-28] MEDS: Furosemide 40 MG TABLET PO (08:58)
[2021-11-28] MEDS: carvediloL 6.25 MG TABLET PO ×2 (08:58→20:42)
[2021-11-28] MEDS: Sennosides 8.6 MG TABLET PO ×2 (08:58→20:41)
[2021-11-28] MEDS: Losartan Potassium 50 MG TABLET 100 MG PO (08:58)
[2021-11-28 19:58] VITALS: BP 118/55; PULSE 75; RESP 18; TEMP 36.5; O2SAT 96
[2021-11-28] MEDS: OLANZapine 10 MG TABLET 20 MG PO (20:40)
[2021-11-28] MEDS: Atorvastatin Calcium 40 MG TABLET PO (20:41)
[2021-11-28] MEDS: Divalproex Sodium 500 MG TABLET.DR 1000 MG PO (20:43)
[2021-11-28] MEDS: polyethylene glycoL 3350 17 GM POWD.PACK PO (20:44)
[2021-11-29 06:00] VITALS: BP 117/58; PULSE 82; RESP 18; TEMP 37.1; O2SAT 94
[2021-11-29] MEDS: Aspirin Enteric Coated 81 MG TABLET.DR PO (08:24)
[2021-11-29] MEDS: carvediloL 6.25 MG TABLET PO ×2 (08:24→20:46)
[2021-11-29] MEDS: Sennosides 8.6 MG TABLET PO ×2 (08:24→20:46)
[2021-11-29] MEDS: Losartan Potassium 50 MG TABLET 100 MG PO (08:24)
[2021-11-29] MEDS: Furosemide 40 MG TABLET PO (08:24)
--- NOTE | 2021-11-29 10:05 | HO.PSYCHPN ---
Subjective Subjective Date of Service: 11/28/21 Reason For Visit: Bipolar disorder, anxiety disorder Subjective Notes: Section 7 Interim History: Pt reports he is doing well. He reports he is sleeping and eating well. He denies SI/HI. No overt delusional content reported. Pt reports he is awaiting court decision and whether he will be discharged this coming Tuesday. Per nursing, no behavioral concerns. Medication Compliance: Yes Side effects from medications: No Review of Systems Review of Systems Yes all other systems are reviewed and are negative Mental Status Exam Mental Status Exam Patient Appearance: Well Grooomed Patient Orientation: Person Level of Consciousness: Awake Patient Behavior: Cooperative Mood Description: Constricted Affect Description: Calm Patient Cognition Impaired: Yes Ability to Follow Directions: Good Speech Pattern: Clear Memory Description: Immediate Impaired and Recent Impaired Diagnostics Vital Signs (24Hr): Vital Signs - 24 hr 11/28/21 19:58 11/29/21 06:00 Temperature 97.7 F 98.7 F Pulse Rate 75 82 Respiratory Rate 18 18 Blood Pressure 118/55 L 117/58 L Pulse Oximetry 96 94 Oxygen Delivery Method Room Air Room Air BMI result Body Mass Index 26.7 Labs Results: 11/16/21 07:45 11/26/21 08:04 Imaging Radiology Impressions: ITS Impressions Head CT 11/10/21 16:10 IMPRESSION: Unremarkable exam. Medications Medications Current Medications Acetaminophen (Acetaminophen 325 Mg Tablet) 650 mg PO Q6H PRN PRN Reason: Headache/Pain Mild Scale (1-3) Last Admin: 11/16/21 22:00 Dose: 650 mg Al Hydroxide/Mg Hydroxide (Magnesium Hydrox/Alum Hydrox 30 Ml Oral.Susp) 30 ml PO Q6H PRN PRN Reason: Heartburn/Nausea Last Admin: 11/24/21 00:30 Dose: 30 ml Aspirin (Aspirin Enteric Coated 81 Mg Tablet.) 81 mg PO DAILY [facility] Last Admin: 11/29/21 08:24 Dose: 81 mg Atorvastatin Calcium (Atorvastatin Calcium 40 Mg Tablet) 40 mg PO BEDTIME [facility] Last Admin: 11/28/21 20:41 Dose: 40 mg Carvedilol (Carvedilol 6.25 Mg Tablet) 6.25 mg PO BID [facility]; Protocol Last Admin: 11/29/21 08:24 Dose: 6.25 mg Divalproex Sodium (Divalproex Sodium 500 Mg Tablet.) 1,000 mg PO BEDTIME [facility] Last Admin: 11/28/21 20:43 Dose: 1,000 mg Furosemide (Furosemide 40 Mg Tablet) 40 mg PO DAILY [facility]; Protocol Last Admin: 11/29/21 08:24 Dose: 40 mg Haloperidol (Haloperidol 5 Mg Tablet) 5 mg PO BID PRN PRN Reason: agitation, psychosis Last Admin: 11/09/21 21:03 Dose: 5 mg Hydroxyzine HCl (Hydroxyzine Hcl 25 Mg Tablet) 25 mg PO BEDTIME PRN PRN Reason: Anxiety Last Admin: 11/21/21 20:48 Dose: 25 mg Losartan Potassium (Losartan Potassium 50 Mg Tablet) 100 mg PO DAILY [facility]; Protocol Last Admin: 11/29/21 08:24 Dose: 100 mg Magnesium Hydroxide (Milk Of Magnesia 30 Ml Oral.Susp) 30 ml PO DAILY PRN PRN Reason: Constipation Last Admin: 11/07/21 09:07 Dose: 30 ml Olanzapine (Olanzapine 10 Mg Tablet) 20 mg PO BEDTIME [facility] Last Admin: 11/28/21 20:40 Dose: 20 mg Ondansetron HCl (Ondansetron Odt 4 Mg Tab.Rapdis) 4 mg TRANSLINGU Q8H PRN PRN Reason: nausea Last Admin: 11/04/21 20:24 Dose: 4 mg Polyethylene Glycol (Polyethylene Glycol 3350 17 Gm Powd.Pack) 17 gm PO BEDTIME [facility] Last Admin: 11/28/21 20:44 Dose: 17 gm Senna (Sennosides 8.6 Mg Tablet) 8.6 mg PO BID [facility] Last Admin: 11/29/21 08:24 Dose: 8.6 mg Simethicone (Simethicone 80 Mg Tab.Chew) 80 mg PO QIDWMHS PRN PRN Reason: gas relief Last Admin: 11/24/21 20:50 Dose: 80 mg Trazodone HCl (Trazodone Hcl 50 Mg Tablet) 50 mg PO BEDTIME PRN PRN Reason: Insomnia Allergies Allergies Allergy/AdvReac Type Severity Reaction Status Date / Time No Known Allergies Allergy Verified 11/03/21 16:21 Assessment & Plan Assessment & Plan (1) Bipolar disorder: Status: Acute Code(s): F31.9 - Bipolar disorder, unspecified (2) STEFAN (generalized anxiety disorder): Status: Acute Code(s): F41.1 - Generalized anxiety disorder Plan 71 yo M admitted to [facility]. He is a poor historian in regards to his chronic medical diagnosis. At this time, would continue his baseline meds and check routine labs if not done so already. Otherwise, appears to be medically stable. 11/21 staff reports patient is less intrusive, more calm; complains of some daytime sedation, however no medication changes to be made as they were all currently dosed in the evening time 11/22 continue current treatment plan Plan 1. Keep Zyprexa up to 20 mg p.o. q.h.s. to target psychosis and mood lability.? 2. Gather collateral information.? 3. Keep Depakote up to 1000 mg PO qhs, starting on 11/18. 4. Start working for safe discharge plan. 5. Depakote level and regular blood work for Tuesday. 11/28 continue current medications. I spent minutes with the patient and/or on the patient floor today, greater than?50% of which was spent counseling/coordinating care. Reason for contiued inpatient stay Substantial Risk for: inability to function
--- NOTE | 2021-11-29 10:24 | HO.PSYCHPN ---
Subjective Subjective Date of Service: 11/29/21 Reason For Visit: Bipolar disorder, anxiety disorder Subjective Notes: Section 7 Interim History: Patient was seen and discussed in rounds today. Records and plans were reviewed. He is awaiting his court hearing. The has been doing a little better. He does have some cognitive impairment. He has for the most part stabilized. No dangerous behaviors. No complaints or side effects. Eating and sleeping adequately. my meds are working well . No changes were made today Review of Systems Review of Systems Lower extremity edema Yes all other systems are reviewed and are negative Mental Status Exam Mental Status Exam Patient Appearance: Well Grooomed Patient Orientation: Person Level of Consciousness: Awake Patient Behavior: Cooperative Mood Description: Constricted Affect Description: Calm Patient Cognition Impaired: Yes Ability to Follow Directions: Good Speech Pattern: Clear Memory Description: Immediate Impaired and Recent Impaired Diagnostics Vital Signs (24Hr): Vital Signs - 24 hr 11/28/21 19:58 11/29/21 06:00 Temperature 97.7 F 98.7 F Pulse Rate 75 82 Respiratory Rate 18 18 Blood Pressure 118/55 L 117/58 L Pulse Oximetry 96 94 Oxygen Delivery Method Room Air Room Air BMI result Body Mass Index 26.7 Labs Results: 11/16/21 07:45 11/26/21 08:04 Imaging Radiology Impressions: ITS Impressions Head CT 11/10/21 16:10 IMPRESSION: Unremarkable exam. Medications Medications Current Medications Acetaminophen (Acetaminophen 325 Mg Tablet) 650 mg PO Q6H PRN PRN Reason: Headache/Pain Mild Scale (1-3) Last Admin: 11/16/21 22:00 Dose: 650 mg Al Hydroxide/Mg Hydroxide (Magnesium Hydrox/Alum Hydrox 30 Ml Oral.Susp) 30 ml PO Q6H PRN PRN Reason: Heartburn/Nausea Last Admin: 11/24/21 00:30 Dose: 30 ml Aspirin (Aspirin Enteric Coated 81 Mg Tablet.) 81 mg PO DAILY [facility] Last Admin: 11/29/21 08:24 Dose: 81 mg Atorvastatin Calcium (Atorvastatin Calcium 40 Mg Tablet) 40 mg PO BEDTIME [facility] Last Admin: 11/28/21 20:41 Dose: 40 mg Carvedilol (Carvedilol 6.25 Mg Tablet) 6.25 mg PO BID [facility]; Protocol Last Admin: 11/29/21 08:24 Dose: 6.25 mg Divalproex Sodium (Divalproex Sodium 500 Mg Tablet.) 1,000 mg PO BEDTIME [facility] Last Admin: 11/28/21 20:43 Dose: 1,000 mg Furosemide (Furosemide 40 Mg Tablet) 40 mg PO DAILY [facility]; Protocol Last Admin: 11/29/21 08:24 Dose: 40 mg Haloperidol (Haloperidol 5 Mg Tablet) 5 mg PO BID PRN PRN Reason: agitation, psychosis Last Admin: 11/09/21 21:03 Dose: 5 mg Hydroxyzine HCl (Hydroxyzine Hcl 25 Mg Tablet) 25 mg PO BEDTIME PRN PRN Reason: Anxiety Last Admin: 11/21/21 20:48 Dose: 25 mg Losartan Potassium (Losartan Potassium 50 Mg Tablet) 100 mg PO DAILY [facility]; Protocol Last Admin: 11/29/21 08:24 Dose: 100 mg Magnesium Hydroxide (Milk Of Magnesia 30 Ml Oral.Susp) 30 ml PO DAILY PRN PRN Reason: Constipation Last Admin: 11/07/21 09:07 Dose: 30 ml Olanzapine (Olanzapine 10 Mg Tablet) 20 mg PO BEDTIME [facility] Last Admin: 11/28/21 20:40 Dose: 20 mg Ondansetron HCl (Ondansetron Odt 4 Mg Tab.Rapdis) 4 mg TRANSLINGU Q8H PRN PRN Reason: nausea Last Admin: 11/04/21 20:24 Dose: 4 mg Polyethylene Glycol (Polyethylene Glycol 3350 17 Gm Powd.Pack) 17 gm PO BEDTIME [facility] Last Admin: 11/28/21 20:44 Dose: 17 gm Senna (Sennosides 8.6 Mg Tablet) 8.6 mg PO BID [facility] Last Admin: 11/29/21 08:24 Dose: 8.6 mg Simethicone (Simethicone 80 Mg Tab.Chew) 80 mg PO QIDWMHS PRN PRN Reason: gas relief Last Admin: 11/24/21 20:50 Dose: 80 mg Trazodone HCl (Trazodone Hcl 50 Mg Tablet) 50 mg PO BEDTIME PRN PRN Reason: Insomnia Allergies Allergies Allergy/AdvReac Type Severity Reaction Status Date / Time No Known Allergies Allergy Verified 11/03/21 16:21 Assessment & Plan Assessment & Plan (1) Bipolar disorder: Status: Acute Code(s): F31.9 - Bipolar disorder, unspecified (2) STEFAN (generalized anxiety disorder): Status: Acute Code(s): F41.1 - Generalized anxiety disorder Plan 71 yo M admitted to [facility]. He is a poor historian in regards to his chronic medical diagnosis. At this time, would continue his baseline meds and check routine labs if not done so already. Otherwise, appears to be medically stable. 11/21 staff reports patient is less intrusive, more calm; complains of some daytime sedation, however no medication changes to be made as they were all currently dosed in the evening time 11/22 continue current treatment plan Plan 1. Keep Zyprexa up to 20 mg p.o. q.h.s. to target psychosis and mood lability.? 2. Gather collateral information.? 3. Keep Depakote up to 1000 mg PO qhs, starting on 11/18. 4. Start working for safe discharge plan. 5. Depakote level and regular blood work for Tuesday. 11/28 continue current medications. I spent minutes with the patient and/or on the patient floor today, greater than?50% of which was spent counseling/coordinating care. Reason for contiued inpatient stay Substantial Risk for: med/psych decompensation
[2021-11-29] MEDS: Atorvastatin Calcium 40 MG TABLET PO (20:46)
[2021-11-29] MEDS: Divalproex Sodium 500 MG TABLET.DR 1000 MG PO (20:46)
[2021-11-29] MEDS: OLANZapine 10 MG TABLET 20 MG PO (20:46)
[2021-11-29] MEDS: polyethylene glycoL 3350 17 GM POWD.PACK PO (20:48)
[2021-11-30 07:49] LABS: MANUAL DIFF FLAG NO
[2021-11-30 07:52] LABS: Basophils Percent Auto 1.1 % (0-2); Eosinophils Absolute Auto 0.2 X10*3/uL (0.0-0.4); Eosinophils Percent Auto 4.1 % (0-4); Hematocrit 32.3 % (42.0-52.0); Hemoglobin 11.2 g/dl (14.0-18.0); Imm Gran Abs Auto 0.04 X10*3/uL (0.00-0.03); Imm Gran Pct Auto 1.1 % (0.0-0.4); Lymphocytes Absolute Auto 0.6 X10*3/uL (1.2-4.9); Lymphocytes Percent Auto 16.2 % (20-40); Mean Corpuscular HGB Conc 34.7 g/dl (31.0-36.0); Mean Corpuscular Hemoglobin 31.5 pg (27.0-33.0); Mean Corpuscular Volume 90.7 fL (80.0-98.0); Mean Platelet Volume 9.9 fL (9.4-12.4); Monocytes Absolute Auto 0.4 X10*3/uL (0.1-1.2); Monocytes Percent Auto 10.1 % (2-11); Neutrophils Absolute Auto 2.5 x10*3/uL (2.0-8.3); Neutrophils Percent Auto 67.4 % (45-73); Platelet Count 109 X10*3/uL (160-400); Red Blood Count 3.56 X10*6/uL (4.60-5.80); Red Cell Distribution Width 12.7 % (11.0-16.0); White Blood Count 3.7 X10*3/uL (4.8-10.8)
[2021-11-30 08:05] LABS: Estimated Average Glucose 111 mg/dL; Hemoglobin A1c % 5.5 %
[2021-11-30 08:13] LABS: Anion Gap 11 (12-20); Blood Urea Nitrogen 11 mg/dL (9-16); Calcium 9.7 mg/dL (8.4-10.2); Carbon Dioxide 27 mmol/L (22-29); Chloride 95 mmol/L (96-108); Cholesterol 92 mg/dL; Creatinine Clr Calc Pharmacy 91.7; Estimated Glomerular Filt Rate > 60; Glucose Random 142 mg/dL (60-115); HDL Cholesterol 34 mg/dL; LDL Cholesterol Calculated 49 mg/dl; Potassium 4.7 mmol/L (3.3-5.1); Sodium 128 mmol/L (135-145); Triglycerides 49 mg/dL; Valproate 63.8 mcg/mL (50.0-100.0)
[2021-11-30 08:15] VITALS: BP 148/69; PULSE 81; RESP 16; TEMP 36.7; O2SAT 97
[2021-11-30] MEDS: Sennosides 8.6 MG TABLET PO ×2 (08:19→20:30)
[2021-11-30] MEDS: carvediloL 6.25 MG TABLET PO ×2 (08:19→20:30)
[2021-11-30] MEDS: Furosemide 40 MG TABLET PO (08:19)
[2021-11-30] MEDS: Aspirin Enteric Coated 81 MG TABLET.DR PO (08:19)
[2021-11-30] MEDS: Losartan Potassium 50 MG TABLET 100 MG PO (08:20)
--- NOTE | 2021-11-30 13:26 | P.PNPSI_ITS ---
Subjective Subjective Date of Service: 11/30/21 Reason For Visit: Bipolar disorder, anxiety disorder Subjective Notes: Conditional Voluntary Interim History: The nursing staff reported the patient has been able to do all his ADL less without help, he showered and have been eating 100% of his meals. Also he has been sleeping 7 hours a night. On interview the patient denies new symptoms he states that he is feeling fine. At this moment there is no evidence of alex or psychosis. We discussed today with him discharge planning and he was aware that he has dryness license was suspended and. Today we had a family meeting and his and daughter were upset that he was going to be discharged pretty soon the patient reported that he wants to separate from his and the meeting was emotional for his family. No safety concerns at this moment Mental Status Exam Mental Status Exam Patient Appearance: Well Grooomed and Appropriate Patient Orientation: Person and Situation Level of Consciousness: Awake Mood Description: Withdrawn Affect Description: Constricted Patient Cognition Impaired: Yes Ability to Follow Directions: Good Speech Pattern: Clear Hallucinations: None Delusions: Not Present Thought Process: Slowed Thinking Thought Content: positive for [place] and positive for Poverty of Content Judgement: Fair Diagnostics Vital Signs (24Hr): Vital Signs - 24 hr 11/30/21 08:15 Temperature 98.1 F Pulse Rate 81 Respiratory Rate 16 Blood Pressure 148/69 H Pulse Oximetry 97 Oxygen Delivery Method Room Air BMI result Body Mass Index 26.7 Labs Results: 11/30/21 07:01 11/30/21 07:01 Labs: Laboratory Results - last 48 hr 11/30/21 11/30/21 11/30/21 07:01 07:01 07:01 WBC 3.7 L RBC 3.56 L Hgb 11.2 L Hct 32.3 L MCV 90.7 MCH 31.5 MCHC 34.7 RDW 12.7 Plt Count 109 L D MPV 9.9 Immature Gran % (Auto) 1.1 H Neut % (Auto) 67.4 Lymph % (Auto) 16.2 L Nance % (Auto) 10.1 Eos % (Auto) 4.1 H Baso % (Auto) 1.1 Lymph # (Auto) 0.6 L Nance # (Auto) 0.4 Eos # (Auto) 0.2 Baso # (Auto) 0.0 Abs Immat Gran (auto) 0.04 H Absolute Neuts (auto) 2.5 Absolute Nucleated RBC 0.000 Nucleated RBC % (auto) 0.0 Sodium 128 L Potassium 4.7 Chloride 95 L Carbon Dioxide 27 Anion Gap 11 L BUN 11 Creatinine 0.81 Estim Creat Clear Calc 91.7 Estimated GFR > 60 Random Glucose 142 H D Estimat Average Glucose 111 Hemoglobin A1c % 5.5 Calcium 9.7 Triglycerides 49 Cholesterol 92 LDL Cholesterol, Calc 49 HDL Cholesterol 34 D Valproic Acid 63.8 Imaging Radiology Impressions: ITS Impressions Head CT 11/10/21 16:10 IMPRESSION: Unremarkable exam. Medications Medications Current Medications Acetaminophen (Acetaminophen 325 Mg Tablet) 650 mg PO Q6H PRN PRN Reason: Headache/Pain Mild Scale (1-3) Last Admin: 11/16/21 22:00 Dose: 650 mg Al Hydroxide/Mg Hydroxide (Magnesium Hydrox/Alum Hydrox 30 Ml Oral.Susp) 30 ml PO Q6H PRN PRN Reason: Heartburn/Nausea Last Admin: 11/24/21 00:30 Dose: 30 ml Aspirin (Aspirin Enteric Coated 81 Mg Tablet.) 81 mg PO DAILY [facility] Last Admin: 11/30/21 08:19 Dose: 81 mg Atorvastatin Calcium (Atorvastatin Calcium 40 Mg Tablet) 40 mg PO BEDTIME [facility] Last Admin: 11/29/21 20:46 Dose: 40 mg Carvedilol (Carvedilol 6.25 Mg Tablet) 6.25 mg PO BID [facility]; Protocol Last Admin: 11/30/21 08:19 Dose: 6.25 mg Divalproex Sodium (Divalproex Sodium 500 Mg Tablet.) 1,000 mg PO BEDTIME [facility] Last Admin: 11/29/21 20:46 Dose: 1,000 mg Furosemide (Furosemide 40 Mg Tablet) 40 mg PO DAILY [facility]; Protocol Last Admin: 11/30/21 08:19 Dose: 40 mg Haloperidol (Haloperidol 5 Mg Tablet) 5 mg PO BID PRN PRN Reason: agitation, psychosis Last Admin: 11/09/21 21:03 Dose: 5 mg Hydroxyzine HCl (Hydroxyzine Hcl 25 Mg Tablet) 25 mg PO BEDTIME PRN PRN Reason: Anxiety Last Admin: 11/21/21 20:48 Dose: 25 mg Losartan Potassium (Losartan Potassium 50 Mg Tablet) 100 mg PO DAILY [facility]; Protocol Last Admin: 11/30/21 08:20 Dose: 100 mg Magnesium Hydroxide (Milk Of Magnesia 30 Ml Oral.Susp) 30 ml PO DAILY PRN PRN Reason: Constipation Last Admin: 11/07/21 09:07 Dose: 30 ml Olanzapine (Olanzapine 10 Mg Tablet) 20 mg PO BEDTIME [facility] Last Admin: 11/29/21 20:46 Dose: 20 mg Ondansetron HCl (Ondansetron Odt 4 Mg Tab.Rapdis) 4 mg TRANSLINGU Q8H PRN PRN Reason: nausea Last Admin: 11/04/21 20:24 Dose: 4 mg Polyethylene Glycol (Polyethylene Glycol 3350 17 Gm Powd.Pack) 17 gm PO BEDTIME [facility] Last Admin: 11/29/21 20:48 Dose: 17 gm Senna (Sennosides 8.6 Mg Tablet) 8.6 mg PO BID [facility] Last Admin: 11/30/21 08:19 Dose: 8.6 mg Simethicone (Simethicone 80 Mg Tab.Chew) 80 mg PO QIDWMHS PRN PRN Reason: gas relief Last Admin: 11/24/21 20:50 Dose: 80 mg Trazodone HCl (Trazodone Hcl 50 Mg Tablet) 50 mg PO BEDTIME PRN PRN Reason: Insomnia Allergies Allergies Allergy/AdvReac Type Severity Reaction Status Date / Time No Known Allergies Allergy Verified 11/03/21 16:21 Assessment & Plan Assessment & Plan (1) Bipolar disorder: Status: Acute Code(s): F31.9 - Bipolar disorder, unspecified (2) STEFAN (generalized anxiety disorder): Status: Acute Code(s): F41.1 - Generalized anxiety disorder Plan 71 yo M admitted to [facility]. He is a poor historian in regards to his chronic medical diagnosis. At this time, would continue his baseline meds and check routine labs if not done so already. Otherwise, appears to be medically stable. 11/21 staff reports patient is less intrusive, more calm; complains of some daytime sedation, however no medication changes to be made as they were all currently dosed in the evening time 11/22 continue current treatment plan Plan 1. Keep Zyprexa up to 20 mg p.o. q.h.s. to target psychosis and mood lability.? 2. Gather collateral information.? 3. Keep Depakote up to 1000 mg PO qhs, starting on 11/18. 4. Start working for safe discharge plan. 5. Depakote level and regular blood work with no changes. 6. Discharge plan for Tuesday I spent ___20___ minutes with the patient and/or on the patient floor today, greater than?50% of which was spent counseling/coordinating care. Informed Consent: understands Reason for contiued inpatient stay Substantial Risk for: inability to function, rapid decompensation and med/psych decompensation
[2021-11-30 18:00] VITALS: BP 122/57; PULSE 86; TEMP 36.9; O2SAT 96
[2021-11-30] MEDS: polyethylene glycoL 3350 17 GM POWD.PACK PO (20:29)
[2021-11-30] MEDS: Divalproex Sodium 500 MG TABLET.DR 1000 MG PO (20:30)
[2021-11-30] MEDS: Atorvastatin Calcium 40 MG TABLET PO (20:30)
[2021-11-30] MEDS: OLANZapine 10 MG TABLET 20 MG PO (20:30)
[2021-12-01] MEDS: Aspirin Enteric Coated 81 MG TABLET.DR PO (07:49)
[2021-12-01 07:50] VITALS: BP 103/57; PULSE 76; RESP 14; TEMP 36.6; O2SAT 99
[2021-12-01] MEDS: carvediloL 6.25 MG TABLET PO ×2 (07:50→20:38)
[2021-12-01] MEDS: Losartan Potassium 50 MG TABLET 100 MG PO (07:51)
[2021-12-01] MEDS: Furosemide 40 MG TABLET PO (07:51)
[2021-12-01] MEDS: Sennosides 8.6 MG TABLET PO ×2 (07:51→20:38)
--- NOTE | 2021-12-01 15:10 | HO.PSYCHPN ---
Subjective Subjective Date of Service: 12/01/21 Reason For Visit: Bipolar disorder, anxiety disorder Subjective Notes: Conditional Voluntary Interim History: The nursing staff reported the patient has been compliant with treatment no new symptoms. On interview the patient denies any alex or psychosis. The social media sr strategy manager reported that yesterday, on the family meeting, his agreed to be him up tomorrow but now today she tolerates in that she does not want to take him back and he is discharge planning has been jeopardized at this moment. Mental Status Exam Mental Status Exam Patient Appearance: Well Grooomed Patient Orientation: Person and Situation Level of Consciousness: Awake Patient Behavior: Cooperative Mood Description: Withdrawn Affect Description: Constricted Patient Cognition Impaired: Yes Ability to Follow Directions: Good Speech Pattern: Clear Hallucinations: None Delusions: Not Present Thought Process: Linear Thought Content: positive for [place] Judgement: Fair Diagnostics Vital Signs (24Hr): Vital Signs - 24 hr 11/30/21 18:00 12/01/21 07:50 Temperature 98.4 F 97.8 F Pulse Rate 86 76 Respiratory Rate 14 Blood Pressure 122/57 L 103/57 L Pulse Oximetry 96 99 Oxygen Delivery Method Room Air Room Air BMI result Body Mass Index 26.7 Labs Results: 11/30/21 07:01 11/30/21 07:01 Labs: Laboratory Results - last 48 hr 11/30/21 11/30/21 11/30/21 07:01 07:01 07:01 WBC 3.7 L RBC 3.56 L Hgb 11.2 L Hct 32.3 L MCV 90.7 MCH 31.5 MCHC 34.7 RDW 12.7 Plt Count 109 L D MPV 9.9 Immature Gran % (Auto) 1.1 H Neut % (Auto) 67.4 Lymph % (Auto) 16.2 L Tate % (Auto) 10.1 Eos % (Auto) 4.1 H Baso % (Auto) 1.1 Lymph # (Auto) 0.6 L Tate # (Auto) 0.4 Eos # (Auto) 0.2 Baso # (Auto) 0.0 Abs Immat Gran (auto) 0.04 H Absolute Neuts (auto) 2.5 Absolute Nucleated RBC 0.000 Nucleated RBC % (auto) 0.0 Sodium 128 L Potassium 4.7 Chloride 95 L Carbon Dioxide 27 Anion Gap 11 L BUN 11 Creatinine 0.81 Estim Creat Clear Calc 91.7 Estimated GFR > 60 Random Glucose 142 H D Estimat Average Glucose 111 Hemoglobin A1c % 5.5 Calcium 9.7 Triglycerides 49 Cholesterol 92 LDL Cholesterol, Calc 49 HDL Cholesterol 34 D Valproic Acid 63.8 Imaging Radiology Impressions: ITS Impressions Head CT 11/10/21 16:10 IMPRESSION: Unremarkable exam. Medications Medications Current Medications Acetaminophen (Acetaminophen 325 Mg Tablet) 650 mg PO Q6H PRN PRN Reason: Headache/Pain Mild Scale (1-3) Last Admin: 11/16/21 22:00 Dose: 650 mg Al Hydroxide/Mg Hydroxide (Magnesium Hydrox/Alum Hydrox 30 Ml Oral.Susp) 30 ml PO Q6H PRN PRN Reason: Heartburn/Nausea Last Admin: 11/24/21 00:30 Dose: 30 ml Aspirin (Aspirin Enteric Coated 81 Mg Tablet.) 81 mg PO DAILY [facility] Last Admin: 12/01/21 07:49 Dose: 81 mg Atorvastatin Calcium (Atorvastatin Calcium 40 Mg Tablet) 40 mg PO BEDTIME [facility] Last Admin: 11/30/21 20:30 Dose: 40 mg Carvedilol (Carvedilol 6.25 Mg Tablet) 6.25 mg PO BID [facility]; Protocol Last Admin: 12/01/21 07:50 Dose: 6.25 mg Divalproex Sodium (Divalproex Sodium 500 Mg Tablet.) 1,000 mg PO BEDTIME [facility] Last Admin: 11/30/21 20:30 Dose: 1,000 mg Furosemide (Furosemide 40 Mg Tablet) 40 mg PO DAILY [facility]; Protocol Last Admin: 12/01/21 07:51 Dose: 40 mg Haloperidol (Haloperidol 5 Mg Tablet) 5 mg PO BID PRN PRN Reason: agitation, psychosis Last Admin: 11/09/21 21:03 Dose: 5 mg Hydroxyzine HCl (Hydroxyzine Hcl 25 Mg Tablet) 25 mg PO BEDTIME PRN PRN Reason: Anxiety Last Admin: 11/21/21 20:48 Dose: 25 mg Losartan Potassium (Losartan Potassium 50 Mg Tablet) 100 mg PO DAILY [facility]; Protocol Last Admin: 12/01/21 07:51 Dose: 100 mg Magnesium Hydroxide (Milk Of Magnesia 30 Ml Oral.Susp) 30 ml PO DAILY PRN PRN Reason: Constipation Last Admin: 11/07/21 09:07 Dose: 30 ml Olanzapine (Olanzapine 10 Mg Tablet) 20 mg PO BEDTIME [facility] Last Admin: 11/30/21 20:30 Dose: 20 mg Ondansetron HCl (Ondansetron Odt 4 Mg Tab.Rapdis) 4 mg TRANSLINGU Q8H PRN PRN Reason: nausea Last Admin: 11/04/21 20:24 Dose: 4 mg Polyethylene Glycol (Polyethylene Glycol 3350 17 Gm Powd.Pack) 17 gm PO BEDTIME [facility] Last Admin: 11/30/21 20:29 Dose: 17 gm Senna (Sennosides 8.6 Mg Tablet) 8.6 mg PO BID [facility] Last Admin: 12/01/21 07:51 Dose: 8.6 mg Simethicone (Simethicone 80 Mg Tab.Chew) 80 mg PO QIDWMHS PRN PRN Reason: gas relief Last Admin: 11/24/21 20:50 Dose: 80 mg Trazodone HCl (Trazodone Hcl 50 Mg Tablet) 50 mg PO BEDTIME PRN PRN Reason: Insomnia Allergies Allergies Allergy/AdvReac Type Severity Reaction Status Date / Time No Known Allergies Allergy Verified 11/03/21 16:21 Assessment & Plan Assessment & Plan (1) Bipolar disorder: Status: Acute Code(s): F31.9 - Bipolar disorder, unspecified (2) STEFAN (generalized anxiety disorder): Status: Acute Code(s): F41.1 - Generalized anxiety disorder Plan 71 yo M admitted to [facility]. He is a poor historian in regards to his chronic medical diagnosis. At this time, would continue his baseline meds and check routine labs if not done so already. Otherwise, appears to be medically stable. 11/21 staff reports patient is less intrusive, more calm; complains of some daytime sedation, however no medication changes to be made as they were all currently dosed in the evening time 11/22 continue current treatment plan Plan 1. Keep Zyprexa up to 20 mg p.o. q.h.s. to target psychosis and mood lability.? 2. Gather collateral information.? 3. Keep Depakote up to 1000 mg PO qhs, starting on 11/18. 4. Start working for safe discharge plan. 5. Depakote level and regular blood work with no changes. 6. Discharge plan for Tuesday I spent __20____ minutes with the patient and/or on the patient floor today, greater than?50% of which was spent counseling/coordinating care. Reason for contiued inpatient stay Substantial Risk for: inability to function, rapid decompensation and med/psych decompensation
[2021-12-01 18:00] VITALS: BP 136/63; PULSE 92; RESP 16; TEMP 37.5; O2SAT 98
[2021-12-01] MEDS: polyethylene glycoL 3350 17 GM POWD.PACK PO (20:37)
[2021-12-01] MEDS: OLANZapine 10 MG TABLET 20 MG PO (20:38)
[2021-12-01] MEDS: Divalproex Sodium 500 MG TABLET.DR 1000 MG PO (20:38)
[2021-12-01] MEDS: Atorvastatin Calcium 40 MG TABLET PO (20:39)
[2021-12-02 07:30] VITALS: BP 110/57; PULSE 76; RESP 19; TEMP 36.7; O2SAT 97
[2021-12-02] MEDS: Aspirin Enteric Coated 81 MG TABLET.DR PO (08:34)
[2021-12-02] MEDS: Furosemide 40 MG TABLET PO (08:34)
[2021-12-02] MEDS: Sennosides 8.6 MG TABLET PO (08:34)
[2021-12-02] MEDS: carvediloL 6.25 MG TABLET PO (08:34)
[2021-12-02] MEDS: Losartan Potassium 50 MG TABLET 100 MG PO (08:34)
--- NOTE | 2021-12-02 11:30 | PM.PSYDC ---
DS: Providers Provider Date of Service: 12/02/21 Date of admission: 11/03/21 16:26 Primary care physician: Edgar Randall MD Consults: 11/03/21 18:34 Consult to Hospitalist Routine Consulting Provider: Hospitalist Reason For Exam: [place] [facility] [place] [place] 10:58 Consult to Hospitalist Routine Consulting Provider: Hospitalist Reason For Exam: lower pitting edema in the last week Attending physician on discharge: Gorge Huston DS: Diagnosis Discharge Diagnosis (1) Bipolar disorder: Status: Acute (2) STEFAN (generalized anxiety disorder): Status: Acute DS: Medications Discharge Medications Home Medications: Home Medications Medication Instructions Recorded Confirmed HRY-pmierstnwxufj-fglqmiw-caff 81 mg PO DAILY 11/03/21 11/03/21 Lexapro 10 mg PO DAILY 11/03/21 11/03/21 atorvastatin 40 mg PO DAILY 11/03/21 11/03/21 carvedilol 6.25 mg PO DAILY 11/03/21 11/03/21 hydrochlorothiazide 25 mg PO DAILY 11/03/21 11/03/21 losartan 100 mg PO DAILY 11/03/21 11/03/21 Mental Status Exam Mental Status Exam Patient Appearance: Well Grooomed Patient Orientation: Person and Situation Level of Consciousness: Awake Patient Behavior: Cooperative Mood Description: Constricted Patient Cognition Impaired: Yes Ability to Follow Directions: Good Speech Pattern: Clear Hallucinations: None Delusions: Not Present Thought Process: Linear Thought Content: positive for Crystal and positive for Circumstantial Judgement: Fair Data Data Completed and Pending Completed studies during hospitalization [Text1]: 11/25/21 11/26/21 11/26/21 16:33 08:04 08:04 WBC RBC Hgb Hct MCV MCH MCHC RDW Plt Count MPV Immature Gran % (Auto) Neut % (Auto) Lymph % (Auto) [place] % (Auto) Eos % (Auto) Baso % (Auto) Lymph # (Auto) [place] # (Auto) Eos # (Auto) Baso # (Auto) Abs Immat Gran (auto) Absolute Neuts (auto) Absolute Nucleated RBC Nucleated RBC % (auto) Sodium 128 L 128 L Potassium 4.5 4.2 Chloride 94 L 95 L Carbon Dioxide 31 H 28 Anion Gap 8 L 9 L BUN 15 14 Creatinine 0.82 0.81 Estim Creat Clear Calc 90.6 91.7 Estimated GFR > 60 > 60 Random Glucose 100 104 Estimat Average Glucose Hemoglobin A1c % Calcium 9.6 9.5 B-Natriuretic Peptide 17 Triglycerides Cholesterol LDL Cholesterol, Calc HDL Cholesterol Valproic Acid 88.8 11/30/21 11/30/21 11/30/21 07:01 07:01 07:01 WBC 3.7 L RBC 3.56 L Hgb 11.2 L Hct 32.3 L MCV 90.7 MCH 31.5 MCHC 34.7 RDW 12.7 Plt Count 109 L D MPV 9.9 Immature Gran % (Auto) 1.1 H Neut % (Auto) 67.4 Lymph % (Auto) 16.2 L [place] % (Auto) 10.1 Eos % (Auto) 4.1 H Baso % (Auto) 1.1 Lymph # (Auto) 0.6 L [place] # (Auto) 0.4 Eos # (Auto) 0.2 Baso # (Auto) 0.0 Abs Immat Gran (auto) 0.04 H Absolute Neuts (auto) 2.5 Absolute Nucleated RBC 0.000 Nucleated RBC % (auto) 0.0 Sodium 128 L Potassium 4.7 Chloride 95 L Carbon Dioxide 27 Anion Gap 11 L BUN 11 Creatinine 0.81 Estim Creat Clear Calc 91.7 Estimated GFR > 60 Random Glucose 142 H D Estimat Average Glucose 111 Hemoglobin A1c % 5.5 Calcium 9.7 B-Natriuretic Peptide Triglycerides 49 Cholesterol 92 LDL Cholesterol, Calc 49 HDL Cholesterol 34 D Valproic Acid 63.8 Imaging Diagnostic Imaging Impressions Head CT 11/10/21 16:10 IMPRESSION: Unremarkable exam. DS: Summary Hospital Course Hospital Course: The patient was admitted for manic and psychotic symptoms, he has never had psychiatric symptoms in the past, please see the [facility] admission note for further details. On admission, we gather collateral information and apparently he has never received psychiatric care but apparently in the last months he has been more progressively manic and disorganized with grandiose delusions, increased energy, shopping sprees and reckless behavior. He also had family history of alex and psychosis with dementia. We discussed at length risks, benefits, side-effects and alternatives and the patient agreed to start Zyprexa titrated up to 20 mg p.o. q.h.s. to target mood lability and psychosis. The patient's mood did not improve too much with the Zyprexa, he did experiment any side effects and there was no over-sedation. Later the patient, asked to be discharged and he signed a 3 day notice so we have to filed for Section 7 and 8 since he was not at baseline. We had a family meetings with his daughter and who lives close. We also did a Johnson test and he scored quite low. Family, was very concerned about the patient's behavior and they testify it on the hearing for the Section 7 and 8. The patient;s symptoms improved slightly, he was still grandiose and sexually disinhibited so we added Depakote titrated up to a 1000 mg a day with a therapeutic level. There were no side effects and his mood improved remarkably. There were no evidence of alex and since there were no safety concerns we discussed discharge planning. The last family meeting, the and daughter were not pleased with the idea of the patient going back home. Initially, the agreed to pick him up from the hospital by later on she refused to take him back home. Even the patient was upset he was able to cope with his stressor and he was going to be discharge by a school bus driver/mechanic. Time spent discussing smoking cessation with patient: 3 to 10 minutes Status at Discharge Cognitive/behavioral status at discharge: Cognitive impairment but able to do his own ADL less Functional status at discharge: independent ambulation Overall status at discharge: patient is back to baseline Time Spent with Patient Time attestation: Total time spent providing and/or coordinating discharge services: Time spent: Less than 30 minutes Discharge Plan Discharge Patient Disposition: Home, Self-Care Discharge Diagnosis: Mood disorder Referrals: Fariba Crain SHIFT NURSE MANAGER [Other] - 1 Week (Appt will be zoom and is scheduled for ) Edgar Randall MD [Primary Care Provider] - 12/10/21 9:30 am (Appt scheduled for December 10, 2021 @ 9:30 AM IN OFFICE) Discharge Medications: New losartan 50 mg Tablet 100 mg PO DAILY 30 Days Qty: 60 0RF Protocol: Hold for SBP< HOLD for SBP < : 90 furosemide 40 mg Tablet 40 mg PO DAILY 30 Days Qty: 30 0RF Protocol: Hold for SBP< HOLD for SBP < : 90 atorvastatin 40 mg Tablet 40 mg PO BEDTIME 30 Days Qty: 30 0RF sennosides [Senna Lax] 8.6 mg Tablet 8.6 mg PO BID 30 Days Qty: 60 0RF carvedilol 6.25 mg Tablet 6.25 mg PO BID 30 Days Qty: 60 0RF Protocol: Hold for SBP/HR < HOLD for SBP < : 90 HOLD for HR < : 60 polyethylene glycol 3350 17 gram Powder In Packet 17 g PO BEDTIME 30 Days Qty: 30 0RF divalproex 500 mg Tablet,Delayed Release (Dr/Ec) 1,000 mg PO BEDTIME 30 Days Qty: 60 0RF aspirin 81 mg Tablet,Delayed Release (Dr/Ec) 81 mg PO DAILY 30 Days Qty: 30 0RF olanzapine [Zyprexa] 20 mg tablet 20 mg PO BEDTIME Qty: 30 0RF Discontinued ZWG-vgsaflmkgilhw-qvfhaqh-caff 81 mg tablet 81 mg PO DAILY Lexapro 10 mg tablet 10 mg PO DAILY atorvastatin 40 mg tablet 40 mg PO DAILY carvedilol 6.25 mg tablet 6.25 mg PO DAILY hydrochlorothiazide 25 mg tablet 25 mg PO DAILY losartan 100 mg tablet 100 mg PO DAILY Discharge Orders: Discharge Order (Routine); Ordered 12/02/21 Ordered By: Gorge Huston Activity on Discharge: As tolerated Stand Alone Forms: Patient Portal Discharge page Care Plan Goals: Care plan goals achieved in this admission Health Concerns: Continue treatment with primary care physician in the community Plan of Treatment: Continue medication management by outpatient providers Assessment: Elderly male Without any prior psychiatric history admitted for alex and psychosis, who was being fairly controlled with medications. Tray to follow outpatient services no safety concerns.
--- NOTE | 2021-12-02 13:55 | PC.NURSE ---
Patient discharged from unit at 1340. Patient alert and oriented. Verbalized understanding of all discharge instructions. PCP and applicable follow ups in place. Medications reviewed with patient. Escorted off unit with TW to [facility].
== END 2021-12-02 13:40 | disposition home or self-care (01) | DRG 753 ==
PROVIDERS: Clinical Nurse Specialist Psychiatric/Mental Health, Adult; Registered Nurse; Student in an Organized Health Care Education/Training Program; Admitting Provider Psychiatry & Neurology Psychiatry; PCP Family Medicine; Visit Provider Psychiatry & Neurology Psychiatry
DX: F31.9 Bipolar disorder, unspecified (principal); I11.0 Hypertensive heart disease with heart failure; I50.9 Heart failure, unspecified; F10.10 Alcohol abuse, uncomplicated; F41.1 Generalized anxiety disorder; I25.10 Atherosclerotic heart disease of native coronary artery without angina pectoris; Z85.46 Personal history of malignant neoplasm of prostate; Z20.822 Contact with and (suspected) exposure to COVID-19; Z79.82 Long term (current) use of aspirin; Z79.899 Other long term (current) drug therapy
CPT/HCPCS: 36415; 70450; 80048; 80061; 80076; 80164; 82607; 82746; 83036; 83735; 83880; 84439; 84443; 85025; 87635